=== PATIENT | male | born 1935 | race Caucasian/White ===

== ENCOUNTER 2021-06-21 19:00 | Inpatient (IN) | payer MEDICARE ==
[~2021-06-21] VITALS: Ht 175.3 cm; Wt 76.1 kg
[2021-06-21 19:24] LABS: BASO # 0.1 x10^3/uL (0.0-0.2); BASO % 0 % (0-3); EOS % 0 % (0-3); HEMATOCRIT 43.9 % (39.0-53.0); HEMOGLOBIN 14.3 g/dL (13.0-17.5); LYMPH # 0.3 x10^3/uL (1.0-4.8); LYMPH % 2 % (24-48); MEAN CORPUSCULAR HEMOGLOBIN 32 pg (25-35); MEAN CORPUSCULAR HGB CONC 33 g/dL (31-37); MEAN CORPUSCULAR VOLUME 99 fL (79-100); MONO # 0.8 x10^3/uL (0.0-1.1); MONO % 5 % (0-9); NEUT % 93 % (31-73); PLATELET COUNT 58 x10^3/uL (140-400); RED BLOOD COUNT 4.43 x10^6/uL (4.30-5.70); RED CELL DISTRIBUTION WIDTH 15.1 % (11.5-14.5); WHITE BLOOD COUNT 16.2 x10^3/uL (4.0-11.0)
--- NOTE | 2021-06-21 19:36 | PHYS DOC ---
Adult General Chief Complaint Chief Complaint: RAPID HEART RATE HPI HPI The patient is an 85-year-old male with a history of hypertension, hyperlipidemia, paroxysmal atrial fibrillation on apixaban and Cardizem, questionable history of heart failure on what son reports is a water pill daily (though echocardiogram last year at [facility], reviewed by me, was essentially normal), wxq-[id number]-cqxsevoyt diabetes. He evidently lives at home with family in the community. He has never been to this facility before. He presents via EMS with no family present for evaluation of progressively worsening generalized weakness and lethargy over the course of the last 2 days. Upon EMS arrival, patient was found to be saturating at about 80% on room air and saturations normalized with 4 L by nasal cannula. He was found to be s omnolent but appropriately responsive, moving all extremities to command and answering questions reasonably appropriately. Vital signs were also notable for tachycardia with heart rate in the 140s. Rhythm strip from EMS shows atrial fibrillation with rapid response and some lateral ST depressions likely reflective of demand. Blood glucose found to be over 400 en route. Upon arrival to the emergency department, patient is alert and appropriately interactive, though somewhat sleepy and lethargic. He denies pain anywhere. Vital signs are much the same as they were during transport. Patient does not provide much further useful history. Review of Systems Review of Systems Review of systems not obtainable secondary to somnolent, somewhat lethargic patient. Current Medications Current Medications Current Medications Medications (Trade) Dose Ordered Sig/Susy Start Time Stop Time Status Last Admin Dose Admin Aspirin (Aspirin Chewable) 324 mg 1X ONCE 06/21/21 20:30 06/21/21 20:31 DC 06/21/21 20:40 324 MG Diltiazem HCl (Cardizem Iv Push) 15 mg 1X ONCE 06/21/21 19:30 06/21/21 19:53 DC 06/21/21 19:58 15 MG Furosemide (Lasix) 40 mg 1X ONCE 06/21/21 20:30 06/21/21 20:31 DC 06/21/21 20:39 40 MG Heparin Sodium (Porcine) (Heparin Sodium) 1,650 unit PRN Q6HRS PRN 06/21/21 21:00 Heparin Sodium/ Dextrose 250 ml @ 7.8 mls/hr CONT PRN 06/21/21 21:00 Info (Anti-Coagulation Monitoring By Pharmacy) 1 each PRN DAILY PRN 06/21/21 21:15 Insulin Human Lispro (HumaLOG) 10 units 1X ONCE 06/21/21 20:30 06/21/21 20:31 DC 06/21/21 20:33 10 UNITS Piperacillin Sod/ Tazobactam Sod 4.5 gm/Dextrose 100 ml @ 200 mls/hr 1X ONCE 06/21/21 20:00 06/21/21 20:29 DC 06/21/21 20:23 200 MLS/HR Piperacillin Sod/ Tazobactam Sod 4.5 gm/Sodium Chloride 100 ml @ 200 mls/hr 1X ONCE 06/21/21 20:00 06/21/21 19:55 DC Sodium Chloride 500 ml @ 500 mls/hr 1X ONCE 06/21/21 22:00 06/21/21 22:59 Vancomycin HCl 1.5 gm/Sodium Chloride 500 ml @ 250 mls/hr 1X ONCE 06/21/21 21:00 06/21/21 22:59 06/21/21 20:32 250 MLS/HR Allergies Allergies Allergies Coded Allergies Type Severity Reaction Last Updated Verified No Known Drug Allergies 06/21/21 No Physical Exam Physical Exam Cachectic, disheveled and soiled 85-year-old male appearing nontoxic and in no acute distress, though somewhat acutely ill. Head is normocephalic and atra umatic. Temporal wasting. Neck is supple and nontender. Oropharynx is mildly tacky. Lungs with diminished breath sounds to all reed but no adventitious sounds. Mild tachypnea. There is a normal S1 and S2 without rubs or gallops and capillary refill is appropriate, less than 2 seconds globally. There is a tachycardic, irregular rhythm. Abdomen is soft, nontender and nondistended without pulsatile mass. Skin is warm and dry without cyanosis, clubbing or edema. Psychiatrically, the patient demonstrates appropriate mood and affect and is alert. Neurologically, patient is lethargic and somewhat sleepy but answers questions appropriately and follows commands appropriately with all 4 e xtremities. No lateralizing deficits are clearly seen. Evaluation of the extremities reveals BUEs and BLEs neurovascularly intact distally with strength out of 5, sensation intact light touch in all nerve distributions, radial, DP and PT pulses 2+ and equal bilaterally, capillary refill less than 2 seconds, hands and feet warm and well-perfused. 2+ pitting edema to bilateral lower extremities below the knees. No calf tenderness or swelling bilaterally. Joanie's test is negative bilaterally. No erythema or tenderness to the legs. Current Patient Data Vital Signs Vital Signs Date Time Temp Pulse Resp B/P (MAP) Pulse Ox O2 Delivery O2 Flow Rate FiO2 06/21/21 19:58 144 148/87 06/21/21 19:21 97.7 18 98 Nasal Cannula 4.0 97.7 Lab Values Laboratory Tests Test 06/21/21 19:11 06/21/21 19:20 06/21/21 19:44 06/21/21 20:28 White Blood Count 16.2 x10^3/uL (4.0-11.0) H Red Blood Count 4.43 x10^6/uL (4.30-5.70) Hemoglobin 14.3 g/dL (13.0-17.5) Hematocrit 43.9 % (39.0-53.0) Mean Corpuscular Volume 99 fL (79-100) Mean Corpuscular Hemoglobin 32 pg (25-35) Mean Corpuscular Hemoglobin Concent 33 g/dL (31-37) Red Cell Distribution Width 15.1 % (11.5-14.5) H Platelet Count 58 x10^3/uL (140-400) L Neutrophils (%) (Auto) 93 % (31-73) H Lymphocytes (%) (Auto) 2 % (24-48) L Monocytes (%) (Auto) 5 % (0-9) Eosinophils (%) (Auto) 0 % (0-3) Basophils (%) (Auto) 0 % (0-3) Neutrophils # (Auto) 15.0 x10^3/uL (1.8-7.7) H Lymphocytes # (Auto) 0.3 x10^3/uL (1.0-4.8) L Monocytes # (Auto) 0.8 x10^3/uL (0.0-1.1) Eosinophils # (Auto) 0.0 x10^3/uL (0.0-0.7) Basophils # (Auto) 0.1 x10^3/uL (0.0-0.2) Segmented Neutrophils % 93 % (35-66) H Band Neutrophils % 4 % (0-9) Lymphocytes % 2 % (24-48) L Monocytes % 1 % (0-10) Platelet Estimate Decreased (ADEQUATE) [place] Cells Present Prothrombin Time 33.4 SEC (11.7-14.0) H Prothrombin Time INR 3.4 (0.8-1.1) H Activated Partial Thromboplast Time 38 SEC (24-38) Sodium Level 143 mmol/L (136-145) Potassium Level 5.6 mmol/L (3.5-5.1) H Chloride Level 103 mmol/L (98-107) Carbon Dioxide Level 13 mmol/L (21-32) L Anion Gap 27 (6-14) H Blood Urea Nitrogen 106 mg/dL (8-26) H Creatinine 3.0 mg/dL (0.7-1.3) H Estimated GFR (Cockcroft-Gault) 20.1 BUN/Creatinine Ratio 35 (6-20) H Glucose Level 446 mg/dL (70-99) H Lactic Acid Level 10.2 mmol/L (0.4-2.0) *H Calcium Level 10.0 mg/dL (8.5-10.1) Total Bilirubin 3.2 mg/dL (0.2-1.0) H Aspartate Amino Transferase (AST) 2562 U/L (15-37) H Alanine Aminotransferase (ALT) 2035 U/L (16-63) H Alkaline Phosphatase 161 U/L (46-116) H Troponin I High Sensitivity 560 ng/L (4-75) H CS-Ouf-V-Type Natriuretic Peptide > 81563 pg/mL (0-449) H Total Protein 7.2 g/dL (6.4-8.2) Albumin 4.3 g/dL (3.4-5.0) Albumin/Globulin Ratio 1.5 (1.0-1.7) Procalcitonin 0.45 ng/mL (0.00-0.10) H Thyroid Stimulating Hormone (TSH) 2.367 uIU/mL (0.358-3.74) Acetone Level Neg (NEG) Urine Collection Type Unknown Urine Color (Auto) Yellow Urine Turbidity Clear Urine pH (Auto) 5.0 (<5.0-8.0) Urine Specific [place] 1.027 (1.000-1.030) Urine Protein (Auto) 30 mg/dL (Negative) Urine Glucose (Auto)(UA) >=1000 mg/dL (Negative) Urine Ketones (Auto) Negative mg/dL (Negative) Urine Blood (Auto) Negative (Negative) Urine Nitrite Negative (Negative) Urine Bilirubin (Auto) Negative (Negative) Urine Urobilinogen (Auto) Normal mg/dL (Normal) Urine Leukocyte Esterase (Auto) Negative (Negative) Urine RBC 0 /HPF (0-2) Urine WBC 5-10 /HPF (0-4) Urine Squamous Epithelial Cells Few /LPF Urine Bacteria 0 /HPF (0-FEW) Urine Hyaline Casts Moderate /HPF Urine Mucus Slight /LPF O2 Saturation 99 % (92-99) Arterial Blood pH 7.40 (7.35-7.45) Arterial Blood pCO2 at Patient Temp 18 mmHg (35-46) *L Arterial Blood pO2 at Patient Temp 182 mmHg (65-108) H Arterial Blood HCO3 11 mmol/L (21-28) L Arterial Blood Base Excess -11 mmol/L (-3-3) L FiO2 32 Influenza Type A Antigen Negative (NEGATIVE) Influenza Type B Antigen Negative (NEGATIVE) SARS-CoV-2 Antigen (Rapid) Negative (NEGATIVE) Laboratory Tests 06/21/21 19:11 Laboratory Tests 06/21/21 19:11 EKG EKG Atrial fibrillation with rapid ventricular response, rate 127, left bundle branch block, no acute ST elevation, ST depressions noted to lateral leads, EP interpretation. Radiology/Procedures Radiology/Procedures [] Course & Med Decision Making Course & Med Decision Making 85-year-old gentleman presenting for evaluation of lethargy and confusion at home over the past couple of days. Appears to be in atrial fibrillation with rapid ventricular response and fluid overloaded here in the emergency department. Have opted to cover with broad-spectrum antibiotics after cultures while initial work-up is completed although etiology may prove to be noninfectious. We will give IV Cardizem. We will give a small dose of Lasix. We will hold on fluids for now as patient looks volume overloaded. Anticipate admission. 2100: Large work-up with numerous abnormalities. Patient has evidence of m ultisystem organ failure with acute hypoxemic respiratory failure, NSTEMI (unclear if Type 1 or Type 2; have started heparin to cover for the former possibility), acute hepatic and acute renal injury, pronounced lactic acidemia. CT of the head unremarkable. CT of the abdomen and pelvis without clear anatomic correlate for the patient's symptoms or laboratory findings. Have opted to cover broadly with vancomycin and Zosyn after cultures for infectious etiologies and have given a 30mL/kg sepsis fluid bolus. Felton catheter has been placed and the patient drained 1.5L of clear yellow urine (patient hasn't been taking his Flomax). Patient is in improved condition on serial reassessments, looking significantly better and more responsive than he was on arrival. Dr. Montelongo came to bedside and evaluated the patient and graciously accepts him for ICU admission. I updated family at length on results of work-up and the patient's critical illness. They were provided an opportunity to ask questions and all of their questions were answered. They are still deciding on a CODE STATUS; for now the patient will be a full code. Critical care time today was 77 minutes. Dragon Disclaimer Dragon Disclaimer This electronic medical record was generated, in whole or in part, using a voice recognition dictation system. Departure Departure Impression: Primary Impression: Atrial fibrillation with rapid ventricular response Additional Impressions: Acute metabolic encephalopathy Shock NSTEMI (non-ST elevated myocardial infarction) Metabolic acidosis Lactic acidemia Transaminasemia Cholestasis Acute urinary retention Disposition: ADMITTED INPATIENT Condition: CRITICAL Problem Qualifiers MAYCOL MARION MD Jun 21, 2021 19:36
[2021-06-21 19:37] LABS: GFR 20.1; POTASSIUM 5.6 mmol/L (3.5-5.1)
[2021-06-21 19:44] LABS: BACTERIA,URINE 0 /HPF (0-FEW); RBC,URINE 0 /HPF (0-2)
[2021-06-21 19:45] LABS: HYALINE CASTS, URINE MODERATE /HPF
[2021-06-21 19:52] LABS: ALBUMIN 4.3 g/dL (3.4-5.0); ALBUMIN/GLOBULIN RATIO 1.5 (1.0-1.7); TOTAL BILIRUBIN 3.2 mg/dL (0.2-1.0); TOTAL PROTEIN 7.2 g/dL (6.4-8.2)
[2021-06-21 19:54] LABS: % BANDS 4 % (0-9); % LYMPHS 2 % (24-48); % MONOS 1 % (0-10); % SEGS 93 % (35-66); BURR CELLS PRESENT; PLT ESTIMATE DECREASED (ADEQUATE)
[2021-06-21] MEDS ORDERED: PIPERACILLIN/TAZOBACTAM 4.5 GM in IV DEXTROSE 5% 100ML 100 ML IV ONE (20:00)
[2021-06-21] MEDS ORDERED: PIPERACILLIN/TAZOBACTAM 4.5 GM in IV NORMAL SALINE 100ML 100 ML IV ONE (20:00)
--- NOTE | 2021-06-21 20:09 | RAD ---
CT HEAD/BRAIN WO Date: 06/21/2021 7:14 PM Clinical Indication: AMS Comparison: None. Technique: 5 mm axial tomographic images were obtained of the head without contrast. These were view ed on brain and bone windows. One or more of the following dose reduction techniques were utilized: A utomated exposure control (AEC), Adjustment of mA and/or kV according to patient size, Use of iterati ve reconstruction technique such as ASiR, CT scan done according to ALARA and image gently/image aleman ly Findings: Moderate generalized cerebral and cerebellar volume loss. Moderate nonspecific periventricular hypoat tenuation, most commonly seen with chronic small vessel ischemic disease. Calcified atherosclerosis o f the bilateral cavernous and paraclinoid internal carotid arteries and intracranial vertebral arteri es. No intra- or extra-axial mass or fluid collection. No acute hemorrhage. The ventricles are normal in size, shape, and morphology. The guzman-white matter junction is normal. The subarachnoid cisterns are patent. The visualized paranasal sinuses are normal. The visualized portions of the orbits and globes are no rmal. The mastoid air cells are clear. 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 Impression: No acute intracranial process. Moderate cerebral volume loss. Moderate chronic small vessel ischemic disease. Electronically signed by: Moshe Renee MD (06/21/2021 8:06 PM) [facility]
[2021-06-21 20:11] LABS: PROTHROMBIN TIME PATIENT 33.4 SEC (11.7-14.0)
[2021-06-21 20:19] LABS: BASE EXCESS ABG -11 mmol/L (-3-3); HCO3 ABG 11 mmol/L (21-28); PO2 ABG 182 mmHg (65-108); SAT O2 ABG 99 % (92-99)
[2021-06-21] MEDS ORDERED: FUROSEMIDE 40 MG/4 ML VIAL. IVP ONE (20:30)
[2021-06-21] MEDS ORDERED: IV NORMAL SALINE 500ML BAG 250 ML IV ONE (20:30)
[2021-06-21] MEDS ORDERED: ASPIRIN CHEWABLE 81 MG TABLET. PO ONE (20:30)
[2021-06-21] MEDS ORDERED: INSULIN LISPRO 300 UNITS/3 ML VIAL. SQ ONE (20:30)
--- NOTE | 2021-06-21 20:30 | RAD ---
XR CHEST 1V INDICATION: SOA, AMS. COMPARISON STUDY: None. FINDINGS: Lungs: Hyperexpanded lung volume. No pulmonary mass or consolidation. The tracheobronchial tree and h ilar structures are normal. Pleura: No pleural effusion or pneumothorax. Heart and Mediastinum: Cardiomegaly. Atherosclerosis of the thoracic aorta. IMPRESSION: No acute cardiopulmonary process. Electronically signed by: Moshe Renee MD (06/21/2021 8:28 PM) [facility]
[2021-06-21 20:36] LABS: FIO2 ABG 32; PCO2 ABG 18 mmHg (35-46)
[2021-06-21] MEDS ORDERED: HEPARIN 25,000UTS/250ML PREMIX 250 ML IV PRN (21:00)
[2021-06-21] MEDS ORDERED: VANCOMYCIN 1.5 GM in IV NORMAL SALINE 500ML BAG 500 ML IV ONE (21:00)
[2021-06-21] MEDS ORDERED: HEPARIN for IV BOLUS 10,000 UNIT/10 ML VIAL. IV PRN (21:00)
[2021-06-21] MEDS ORDERED: HEPARIN for IV BOLUS 10,000 UNIT/10 ML VIAL. IV ONE (21:00)
[2021-06-21 21:02] LABS: INFLUENZA A PATIENT NEGATIVE (NEGATIVE); INFLUENZA B PATIENT NEGATIVE (NEGATIVE)
[2021-06-21] MEDS ORDERED: DILT180C2 PO (21:06)
[2021-06-21] MEDS ORDERED: METF10007 PO (21:06)
[2021-06-21] MEDS ORDERED: DILT60TA3 PO (21:06)
[2021-06-21] MEDS ORDERED: ASPI-630 PO (21:06)
[2021-06-21] MEDS ORDERED: MAGN70TA2 PO (21:06)
[2021-06-21] MEDS ORDERED: TAMS0.4C97 PO (21:06)
[2021-06-21] MEDS ORDERED: SIMV80TA17 PO (21:06)
[2021-06-21] MEDS ORDERED: FURO-69 PO (21:06)
[2021-06-21] MEDS ORDERED: TIMO5DRO5 OD (21:06)
[2021-06-21] MEDS ORDERED: LATA2.5D2 OU (21:06)
[2021-06-21] MEDS ORDERED: HYDR-2145 PO (21:06)
[2021-06-21] MEDS ORDERED: APIX5TAB PO (21:06)
[2021-06-21] MEDS ORDERED: IV NORMAL SALINE 1000ML BAG 1,000 ML IV ONE (21:30)
--- NOTE | 2021-06-21 21:42 | RAD ---
Exam: CT of chest, abdomen and pelvis without contrast INDICATION: Multisystem organ failure, lactic acidemia TECHNIQUE: Sequential axial images through the chest, abdomen and pelvis obtained without IV contrast . Sagittal and coronal reformatted images were reconstructed from the axial data and reviewed. Exposure: One or more of the following in the visualized dose reduction techniques were utilized for this examination: 1. Automated exposure control 2. Adjustment of the MA and/or KV according to patient size 3. Use of iterative of reconstructive technique Comparisons: None FINDINGS: Visualized portions of the thyroid are unremarkable. No enlarged mediastinal lymph nodes are identifi ed. Heart is enlarged. No pericardial effusion. Thoracic aorta has a normal course and caliber. Pulmonary artery is not enlarged. Airways are patent. No consolidation or pneumothorax. Strandy opacities the dependent portion lungs l ikely representing atelectasis. No pleural effusion or thickening. Evaluation of solid abdominal organs limited secondary to noncontrast technique. Liver, spleen, pancreas, gallbladder and adrenals are unremarkable. No perinephric inflammation or hydronephrosis. No renal or ureteral calculi are identified. Bladder is decompressed. Felton balloon noted in the bladder. Prostate is not enlarged. Moderate amount of stool noted particularly at the distal sigmoid colon. Appendix is normal. Small radha wel is unremarkable. No free intra-abdominal air or fluid. No obstruction. Abdominal aorta has a normal course and caliber. No enlarged intra-abdominal lymph nodes are identified. IMPRESSION: 1. Cardiomegaly. 2. Large amount stool noted at the distal colon, correlate for constipation. Electronically signed by: Rodrick Webster MD (06/21/2021 9:39 PM) [facility]
[2021-06-21] MEDS ORDERED: IV NORMAL SALINE 500ML BAG 500 ML IV ONE (22:00)
[2021-06-21] MEDS ORDERED: ACETAMINOPHEN 325 MG TABLET. PO PRN (22:15)
[2021-06-21] MEDS ORDERED: dilTIAZem HCL 125 MG in IV DEXTROSE 5% 100ML 100 ML IV PRN (22:15)
[2021-06-21] MEDS ORDERED: ONDANSETRON PF 4 MG/2 ML VIAL. IVP PRN (22:15)
[2021-06-21] MEDS ORDERED: PIP/TAZO PER PHARMACY MC PRN (22:45)
--- NOTE | 2021-06-21 23:14 | HP ---
DATE OF SERVICE: 06/21/2021 ADMIT DATE: 06/21/2021 CHIEF COMPLAINT: Rapid heart rate. 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 He presented to the ER by ambulance with complaints of rapid heart rate. While in the ER, we have discovered multiple issues. He appears to possibly have multiorgan failure. He has azotemia with a BUN of 106 and a creatinine of 3.0. He is hyperglycemic with a glucose of 446. The potassium is high at 5.6. BNP levels are elevated to greater than 35,000. His AST and ALT are also high at 2035 and 2560. Alkaline phosphatase is little high at 161. His lactic is also high at 10.2. He has got leukocytosis of 16,000. I discussed the case with ER physician and the family. The patient is currently on Cardizem drip in the ER room 2 where he has been examined. PAST MEDICAL HISTORY: Hypertension, hyperlipidemia, chronic anticoagulation, possible CHF, AFib. ALLERGIES: None. FAMILY HISTORY: Diabetes. 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 MEDICATIONS: Reviewed, please refer to the MRAD. REVIEW OF SYSTEMS: GENERAL: He complains of weakness. SKIN: No bruising, hair changes or rashes. EYES: No blurred, double or loss of vision. NOSE AND THROAT: No history of nosebleeds, hoarseness or sore throat. HEART: He complains of palpitations. LUNGS: He complains of shortness of breath. GASTROINTESTINAL: Denies changes in appetite, nausea, vomiting, diarrhea or constipation. GENITOURINARY: No history of frequency, urgency, hesitancy or nocturia. NEUROLOGIC: Denies history of numbness, tingling, tremor or weakness. PSYCHIATRIC: He complains of depression. ENDOCRINE: No history of heat or cold intolerance, polyuria or polydipsia. EXTREMITIES: Denies muscle weakness, joint pain, pain on walking or stiffness. PHYSICAL EXAMINATION: VITALS: Within normal limits and are stable. GENERAL: No apparent distress. Alert and oriented. HEENT: Normal cephalic atraumatic, external auditory canals are patent. EYES: Extraocular muscles are intact, pupils are equally round and reactive to light and accommodation. MUSCULOSKELETAL: Well developed, well nourished, good range of motion. ENDOCRINE: No thyromegaly was palpated. LYMPHATICS: No cervical chain or axillary nodes were noted. HEMATOPOIETIC: No bruising. NECK: Supple, no JVD, no thyromegaly was noted. LUNGS: He has bibasilar crackles. HEART: He has irregular distant S1, S2 with AFib on the monitor and rapid ventricular response of 120, although we have that down now with the Cardizem drip. ABDOMEN: Soft, nontender. Positive bowel sounds no organomegaly, normal bowel sounds. EXTREMITIES: He has 2-3+ edema. The toes and fingers are somewhat cyanotic. NEUROLOGIC: Normal speech, normal tone. A and O x 3, moves all extremities, no obvious focal deficits. PSYCHIATRIC: Normal affect, normal mood. Stable. SKIN: No ulcerations or rashes, good skin turgor, no jaundice. VASCULAR: Good capillary refill, neurovascular bundle appears to be intact. LABORATORY DATA: White count 16. Lactic acid is 10.2. BNP greater than 35,000. Troponin 560. Procalcitonin 45. ABG shows a pH of 7.4, pCO2 of 18, pO2 of 182, bicarbonate 11 and that is with 99% sat on 32% FiO2. COVID testing is negative. Flu testing is negative. Urinalysis is negative. Acetone level is negative. INR is high at 3.4, but again he is on Xarelto. Chest x-ray shows no acute pulmonary process surprisingly. CT of the head shows no acute process. He has some atrophy and chronic small vessel disease. CT of the chest and abdomen shows cardiomegaly and a large amount of stool noted. ASSESSMENT AND PLAN: Atrial fibrillation with rapid ventricular response, renal failure, azotemia, hyperkalemia, transaminitis, elevated troponin, leukocytosis. The patient has been admitted. We have him on a Cardizem drip. We are giving him gentle IV normal saline as he seems to be intravascularly dry, although he does have edema. We have consulted Cardiology, GI and Pulmonary Medicine. Consult Nephrology also. Home meds when possible. Deep venous thrombosis prophylaxis. Full code. Cardiac monitoring, serial enzymes, serial EKGs. Long-term prognosis is guarded. Critical care time 32 minutes. HORACIO/SALUD DR: Clementina TID: [id number]
[2021-06-22] VITALS (28 sets, daily range): BP systolic 83–119; BP diastolic 51–73
[2021-06-22] MEDS: ANTI-COAG MONITOR BY PHARMACY. MC PRN ×3 (00:09→08:42)
[2021-06-22] MEDS: IV NORMAL SALINE 1000ML BAG 1,000 ML IV SCH ×3 (01:00→20:36)
[2021-06-22 05:22] LABS: ALBUMIN 3.3 g/dL (3.4-5.0); ALBUMIN/GLOBULIN RATIO 1.6 (1.0-1.7); CALCIUM 8.6 mg/dL (8.5-10.1); CREATININE 2.7 mg/dL (0.7-1.3); GFR 22.7; POTASSIUM 4.1 mmol/L (3.5-5.1); TOTAL BILIRUBIN 2.2 mg/dL (0.2-1.0); TOTAL PROTEIN 5.4 g/dL (6.4-8.2)
[2021-06-22] MEDS: PIPERACILLIN/TAZOBACTAM 2.25 GM in IV NORMAL SALINE 50ML 50 ML IV SCH ×4 (05:30→17:24)
[2021-06-22 06:44] LABS: BASO % 0 % (0-3); EOS % 0 % (0-3); HEMATOCRIT 37.5 % (39.0-53.0); HEMOGLOBIN 12.5 g/dL (13.0-17.5); LYMPH # 0.4 x10^3/uL (1.0-4.8); LYMPH % 3 % (24-48); MEAN CORPUSCULAR HEMOGLOBIN 32 pg (25-35); MEAN CORPUSCULAR HGB CONC 33 g/dL (31-37); MEAN CORPUSCULAR VOLUME 96 fL (79-100); MONO # 0.6 x10^3/uL (0.0-1.1); MONO % 4 % (0-9); NEUT # 11.9 x10^3/uL (1.8-7.7); NEUT % 93 % (31-73); PLATELET COUNT 46 x10^3/uL (140-400); RED BLOOD COUNT 3.89 x10^6/uL (4.30-5.70); RED CELL DISTRIBUTION WIDTH 14.5 % (11.5-14.5); WHITE BLOOD COUNT 12.8 x10^3/uL (4.0-11.0)
--- NOTE | 2021-06-22 08:06 | EKG ---
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
--- NOTE | 2021-06-22 08:40 | EKG ---
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
[2021-06-22] MEDS ORDERED: HEPARIN 25,000UTS/250ML PREMIX 250 ML IV PRN (08:45)
[2021-06-22] MEDS ORDERED: HEPARIN for IV BOLUS 10,000 UNIT/10 ML VIAL. IV PRN (08:45)
--- NOTE | 2021-06-22 09:45 | PDOC ---
PULMONARY PROGRESS NOTES DATE: 06/22/21 TIME: 09:43 Vitals Vital Signs Date Time Temp Pulse Resp B/P (MAP) Pulse Ox O2 Delivery O2 Flow Rate FiO2 06/22/21 09:00 103 18 101/59 100 Nasal Cannula 2.0 06/22/21 08:00 98.3 98.3 Labs Laboratory Tests Test 06/21/21 19:11 06/21/21 19:20 06/21/21 19:44 06/21/21 20:28 White Blood Count 16.2 x10^3/uL (4.0-11.0) Red Blood Count 4.43 x10^6/uL (4.30-5.70) Hemoglobin 14.3 g/dL (13.0-17.5) Hematocrit 43.9 % (39.0-53.0) Mean Corpuscular Volume 99 fL (79-100) Mean Corpuscular Hemoglobin 32 pg (25-35) Mean Corpuscular Hemoglobin Concent 33 g/dL (31-37) Red Cell Distribution Width 15.1 % (11.5-14.5) Platelet Count 58 x10^3/uL (140-400) Neutrophils (%) (Auto) 93 % (31-73) Lymphocytes (%) (Auto) 2 % (24-48) Monocytes (%) (Auto) 5 % (0-9) Eosinophils (%) (Auto) 0 % (0-3) Basophils (%) (Auto) 0 % (0-3) Neutrophils # (Auto) 15.0 x10^3/uL (1.8-7.7) Lymphocytes # (Auto) 0.3 x10^3/uL (1.0-4.8) Monocytes # (Auto) 0.8 x10^3/uL (0.0-1.1) Eosinophils # (Auto) 0.0 x10^3/uL (0.0-0.7) Basophils # (Auto) 0.1 x10^3/uL (0.0-0.2) Segmented Neutrophils % 93 % (35-66) Band Neutrophils % 4 % (0-9) Lymphocytes % 2 % (24-48) Monocytes % 1 % (0-10) Platelet Estimate Decreased (ADEQUATE) [place] Cells Present Prothrombin Time 33.4 SEC (11.7-14.0) Prothromb Time International Ratio 3.4 (0.8-1.1) Activated Partial Thromboplast Time 38 SEC (24-38) Sodium Level 143 mmol/L (136-145) Potassium Level 5.6 mmol/L (3.5-5.1) Chloride Level 103 mmol/L (98-107) Carbon Dioxide Level 13 mmol/L (21-32) Anion Gap 27 (6-14) Blood Urea Nitrogen 106 mg/dL (8-26) Creatinine 3.0 mg/dL (0.7-1.3) Estimated GFR (Cockcroft-Gault) 20.1 BUN/Creatinine Ratio 35 (6-20) Glucose Level 446 mg/dL (70-99) Lactic Acid Level 10.2 mmol/L (0.4-2.0) Calcium Level 10.0 mg/dL (8.5-10.1) Total Bilirubin 3.2 mg/dL (0.2-1.0) Aspartate Amino Transf (AST/SGOT) 2562 U/L (15-37) Alanine Aminotransferase (ALT/SGPT) 2035 U/L (16-63) Alkaline Phosphatase 161 U/L (46-116) Troponin I High Sensitivity 560 ng/L (4-75) OU-Lol-V-Type Natriuretic Peptide > 84501 pg/mL (0-449) Total Protein 7.2 g/dL (6.4-8.2) Albumin 4.3 g/dL (3.4-5.0) Albumin/Globulin Ratio 1.5 (1.0-1.7) Procalcitonin 0.45 ng/mL (0.00-0.10) Thyroid Stimulating Hormone (TSH) 2.367 uIU/mL (0.358-3.74) Acetone Level Neg (NEG) Urine Collection Type Unknown Urine Color (Auto) Yellow Urine Turbidity Clear Urine pH (Auto) 5.0 (<5.0-8.0) Urine Specific [place] 1.027 (1.000-1.030) Urine Protein (Auto) 30 mg/dL (Negative) Urine Glucose (Auto)(UA) >=1000 mg/dL (Negative) Urine Ketones (Auto) Negative mg/dL (Negative) Urine Blood (Auto) Negative (Negative) Urine Nitrite Negative (Negative) Urine Bilirubin (Auto) Negative (Negative) Urine Urobilinogen (Auto) Normal mg/dL (Normal) Urine Leukocyte Esterase (Auto) Negative (Negative) Urine RBC 0 /HPF (0-2) Urine WBC 5-10 /HPF (0-4) Urine Squamous Epithelial Cells Few /LPF Urine Bacteria 0 /HPF (0-FEW) Urine Hyaline Casts Moderate /HPF Urine Mucus Slight /LPF O2 Saturation 99 % (92-99) Arterial Blood pH 7.40 (7.35-7.45) Arterial Blood pCO2 at Patient Temp 18 mmHg (35-46) Arterial Blood pO2 at Patient Temp 182 mmHg (65-108) Arterial Blood HCO3 11 mmol/L (21-28) Arterial Blood Base Excess -11 mmol/L (-3-3) FiO2 32 Influenza Type A Antigen Negative (NEGATIVE) Influenza Type B Antigen Negative (NEGATIVE) SARS-CoV-2 Antigen (Rapid) Negative (NEGATIVE) Test 06/21/21 22:33 06/22/21 04:00 Lactic Acid Level 4.8 mmol/L (0.4-2.0) Troponin I High Sensitivity 644 ng/L (4-75) 1011 ng/L (4-75) White Blood Count 12.8 x10^3/uL (4.0-11.0) Red Blood Count 3.89 x10^6/uL (4.30-5.70) Hemoglobin 12.5 g/dL (13.0-17.5) Hematocrit 37.5 % (39.0-53.0) Mean Corpuscular Volume 96 fL (79-100) Mean Corpuscular Hemoglobin 32 pg (25-35) Mean Corpuscular Hemoglobin Concent 33 g/dL (31-37) Red Cell Distribution Width 14.5 % (11.5-14.5) Platelet Count 46 x10^3/uL (140-400) Neutrophils (%) (Auto) 93 % (31-73) Lymphocytes (%) (Auto) 3 % (24-48) Monocytes (%) (Auto) 4 % (0-9) Eosinophils (%) (Auto) 0 % (0-3) Basophils (%) (Auto) 0 % (0-3) Neutrophils # (Auto) 11.9 x10^3/uL (1.8-7.7) Lymphocytes # (Auto) 0.4 x10^3/uL (1.0-4.8) Monocytes # (Auto) 0.6 x10^3/uL (0.0-1.1) Eosinophils # (Auto) 0.0 x10^3/uL (0.0-0.7) Basophils # (Auto) 0.0 x10^3/uL (0.0-0.2) Heparin Anti-Xa Act, Unfractionated 0.21 IU/mL (0.30-0.70) Sodium Level 147 mmol/L (136-145) Potassium Level 4.1 mmol/L (3.5-5.1) Chloride Level 110 mmol/L (98-107) Carbon Dioxide Level 19 mmol/L (21-32) Anion Gap 18 (6-14) Blood Urea Nitrogen 105 mg/dL (8-26) Creatinine 2.7 mg/dL (0.7-1.3) Estimated GFR (Cockcroft-Gault) 22.7 BUN/Creatinine Ratio 39 (6-20) Glucose Level 308 mg/dL (70-99) Calcium Level 8.6 mg/dL (8.5-10.1) Total Bilirubin 2.2 mg/dL (0.2-1.0) Aspartate Amino Transf (AST/SGOT) 2166 U/L (15-37) Alanine Aminotransferase (ALT/SGPT) 1618 U/L (16-63) Alkaline Phosphatase 117 U/L (46-116) Total Protein 5.4 g/dL (6.4-8.2) Albumin 3.3 g/dL (3.4-5.0) Albumin/Globulin Ratio 1.6 (1.0-1.7) Laboratory Tests Test 06/21/21 19:11 06/21/21 19:20 06/21/21 19:44 06/21/21 20:28 White Blood Count 16.2 x10^3/uL (4.0-11.0) Red Blood Count 4.43 x10^6/uL (4.30-5.70) Hemoglobin 14.3 g/dL (13.0-17.5) Hematocrit 43.9 % (39.0-53.0) Mean Corpuscular Volume 99 fL (79-100) Mean Corpuscular Hemoglobin 32 pg (25-35) Mean Corpuscular Hemoglobin Concent 33 g/dL (31-37) Red Cell Distribution Width 15.1 % (11.5-14.5) Platelet Count 58 x10^3/uL (140-400) Neutrophils (%) (Auto) 93 % (31-73) Lymphocytes (%) (Auto) 2 % (24-48) Monocytes (%) (Auto) 5 % (0-9) Eosinophils (%) (Auto) 0 % (0-3) Basophils (%) (Auto) 0 % (0-3) Neutrophils # (Auto) 15.0 x10^3/uL (1.8-7.7) Lymphocytes # (Auto) 0.3 x10^3/uL (1.0-4.8) Monocytes # (Auto) 0.8 x10^3/uL (0.0-1.1) Eosinophils # (Auto) 0.0 x10^3/uL (0.0-0.7) Basophils # (Auto) 0.1 x10^3/uL (0.0-0.2) Segmented Neutrophils % 93 % (35-66) Band Neutrophils % 4 % (0-9) Lymphocytes % 2 % (24-48) Monocytes % 1 % (0-10) Platelet Estimate Decreased (ADEQUATE) [place] Cells Present Prothrombin Time 33.4 SEC (11.7-14.0) Prothromb Time International Ratio 3.4 (0.8-1.1) Activated Partial Thromboplast Time 38 SEC (24-38) Sodium Level 143 mmol/L (136-145) Potassium Level 5.6 mmol/L (3.5-5.1) Chloride Level 103 mmol/L (98-107) Carbon Dioxide Level 13 mmol/L (21-32) Anion Gap 27 (6-14) Blood Urea Nitrogen 106 mg/dL (8-26) Creatinine 3.0 mg/dL (0.7-1.3) Estimated GFR (Cockcroft-Gault) 20.1 BUN/Creatinine Ratio 35 (6-20) Glucose Level 446 mg/dL (70-99) Lactic Acid Level 10.2 mmol/L (0.4-2.0) Calcium Level 10.0 mg/dL (8.5-10.1) Total Bilirubin 3.2 mg/dL (0.2-1.0) Aspartate Amino Transf (AST/SGOT) 2562 U/L (15-37) Alanine Aminotransferase (ALT/SGPT) 2035 U/L (16-63) Alkaline Phosphatase 161 U/L (46-116) Troponin I High Sensitivity 560 ng/L (4-75) EU-Ana-W-Type Natriuretic Peptide > 53867 pg/mL (0-449) Total Protein 7.2 g/dL (6.4-8.2) Albumin 4.3 g/dL (3.4-5.0) Albumin/Globulin Ratio 1.5 (1.0-1.7) Procalcitonin 0.45 ng/mL (0.00-0.10) Thyroid Stimulating Hormone (TSH) 2.367 uIU/mL (0.358-3.74) Acetone Level Neg (NEG) Urine Collection Type Unknown Urine Color (Auto) Yellow Urine Turbidity Clear Urine pH (Auto) 5.0 (<5.0-8.0) Urine Specific [place] 1.027 (1.000-1.030) Urine Protein (Auto) 30 mg/dL (Negative) Urine Glucose (Auto)(UA) >=1000 mg/dL (Negative) Urine Ketones (Auto) Negative mg/dL (Negative) Urine Blood (Auto) Negative (Negative) Urine Nitrite Negative (Negative) Urine Bilirubin (Auto) Negative (Negative) Urine Urobilinogen (Auto) Normal mg/dL (Normal) Urine Leukocyte Esterase (Auto) Negative (Negative) Urine RBC 0 /HPF (0-2) Urine WBC 5-10 /HPF (0-4) Urine Squamous Epithelial Cells Few /LPF Urine Bacteria 0 /HPF (0-FEW) Urine Hyaline Casts Moderate /HPF Urine Mucus Slight /LPF O2 Saturation 99 % (92-99) Arterial Blood pH 7.40 (7.35-7.45) Arterial Blood pCO2 at Patient Temp 18 mmHg (35-46) Arterial Blood pO2 at Patient Temp 182 mmHg (65-108) Arterial Blood HCO3 11 mmol/L (21-28) Arterial Blood Base Excess -11 mmol/L (-3-3) FiO2 32 Influenza Type A Antigen Negative (NEGATIVE) Influenza Type B Antigen Negative (NEGATIVE) SARS-CoV-2 Antigen (Rapid) Negative (NEGATIVE) Test 06/21/21 22:33 06/22/21 04:00 Lactic Acid Level 4.8 mmol/L (0.4-2.0) Troponin I High Sensitivity 644 ng/L (4-75) 1011 ng/L (4-75) White Blood Count 12.8 x10^3/uL (4.0-11.0) Red Blood Count 3.89 x10^6/uL (4.30-5.70) Hemoglobin 12.5 g/dL (13.0-17.5) Hematocrit 37.5 % (39.0-53.0) Mean Corpuscular Volume 96 fL (79-100) Mean Corpuscular Hemoglobin 32 pg (25-35) Mean Corpuscular Hemoglobin Concent 33 g/dL (31-37) Red Cell Distribution Width 14.5 % (11.5-14.5) Platelet Count 46 x10^3/uL (140-400) Neutrophils (%) (Auto) 93 % (31-73) Lymphocytes (%) (Auto) 3 % (24-48) Monocytes (%) (Auto) 4 % (0-9) Eosinophils (%) (Auto) 0 % (0-3) Basophils (%) (Auto) 0 % (0-3) Neutrophils # (Auto) 11.9 x10^3/uL (1.8-7.7) Lymphocytes # (Auto) 0.4 x10^3/uL (1.0-4.8) Monocytes # (Auto) 0.6 x10^3/uL (0.0-1.1) Eosinophils # (Auto) 0.0 x10^3/uL (0.0-0.7) Basophils # (Auto) 0.0 x10^3/uL (0.0-0.2) Heparin Anti-Xa Act, Unfractionated 0.21 IU/mL (0.30-0.70) Sodium Level 147 mmol/L (136-145) Potassium Level 4.1 mmol/L (3.5-5.1) Chloride Level 110 mmol/L (98-107) Carbon Dioxide Level 19 mmol/L (21-32) Anion Gap 18 (6-14) Blood Urea Nitrogen 105 mg/dL (8-26) Creatinine 2.7 mg/dL (0.7-1.3) Estimated GFR (Cockcroft-Gault) 22.7 BUN/Creatinine Ratio 39 (6-20) Glucose Level 308 mg/dL (70-99) Calcium Level 8.6 mg/dL (8.5-10.1) Total Bilirubin 2.2 mg/dL (0.2-1.0) Aspartate Amino Transf (AST/SGOT) 2166 U/L (15-37) Alanine Aminotransferase (ALT/SGPT) 1618 U/L (16-63) Alkaline Phosphatase 117 U/L (46-116) Total Protein 5.4 g/dL (6.4-8.2) Albumin 3.3 g/dL (3.4-5.0) Albumin/Globulin Ratio 1.6 (1.0-1.7) Medications Active Scripts Medications Dose Route/Sig Max Daily Dose Days Date Category Magnesium Chloride 70 Mg Tablet.dr 70 Mg PO 06/21/21 Reported Hydrochlorothiazide Tablet (Hydrochlorothiazide) 25 Mg Tablet 25 Mg PO DAILY 06/21/21 Reported Lasix (Furosemide) 20 Mg Tablet 20 Mg PO BID 06/21/21 Reported Eliquis (Apixaban) 5 Mg Tablet 5 Mg PO 06/21/21 Reported Metformin Hcl 1,000 Mg Tablet 1,000 Mg PO BIDWMEALS 06/21/21 Reported Aspirin 81 Mg Tab.chew 1 Tab PO DAILY 06/21/21 Reported Cardizem Cd (Diltiazem Hcl) 180 Mg Cap.er.24h 1 Cap PO DAILY 06/21/21 Reported Cardizem Tablet (Diltiazem Hcl) 60 Mg Tablet 60 Mg PO QID 06/21/21 Reported Flomax (Tamsulosin Hcl) 0.4 Mg Cap.er.24h 1 Cap PO DAILY 06/21/21 Reported Simvastatin 80 Mg Tablet 1 Tab PO QHS 30 06/21/21 Reported Timolol Maleate 5 Ml Drops 1 Drop OD BID 06/21/21 Reported Xalatan (Latanoprost) 2.5 Ml Drops 1 Drop OU QHS 06/21/21 Reported Impression . Full consult dictated Respiratory failure multifactorial Sepsis Multiorgan failure Continue current support NOMRA HARRIS MD Jun 22, 2021 09:45
--- NOTE | 2021-06-22 10:19 | PDOC2 ---
[facility] LABORATORY TECHNICIAN 06/22/21 1019: CARDIAC CONSULT DATE OF CONSULT Date of Consult DATE: 06/22/21 TIME: 09:59 REASON FOR CONSULT Reason for Consult: NSTEMI REFERRING PHYSICIAN Referring Physician: Yudith SOURCE Source: Chart review HISTORY OF PRESENT ILLNESS HISTORY OF PRESENT ILLNESS This is an 85 yo male admitted for altered mental status. Lives in guest house by his son. He lives with his .Found in bed with urine and feces and confusion. No noted chest pain. Noted with SOA. EMS was called and RA O2 sat was 80% with BG at 400. Hx of NICM, PAFIB, HTN, HLP, He has not been taking his medications per son. Has not followed up with any recent supervisor [employer]. Upon admission he was noted with AFIB RVR with multiorgan failure. PAST MEDICAL HISTORY Cardiovascular: AFIB, CHF, HTN, Hyperlipidemia, Other (Takotsubo) Musculoskeletal: Osteoarthritis Endocrine: Diabetes PAST SURGICAL HISTORY Past Surgical History unknown FAMILY HISTORY Family History: Family History Unknown SOCIAL HISTORY ALCOHOL: none Lives: Alone CURRENT MEDICATIONS CURRENT MEDICATIONS Current Medications Medications (Trade) Dose Ordered Sig/Susy Route PRN Reason Start Time Stop Time Status Last Admin Dose Admin Vancomycin HCl 1.5 gm/Sodium Chloride 500 ml @ 250 mls/hr 1X ONCE IV 06/21/21 21:00 06/21/21 22:59 DC 06/21/21 20:32 Diltiazem HCl (Cardizem Iv Push) 15 mg 1X ONCE IVP 06/21/21 19:30 06/21/21 19:53 DC 06/21/21 19:58 Piperacillin Sod/ Tazobactam Sod 4.5 gm/Dextrose 100 ml @ 200 mls/hr 1X ONCE IV 06/21/21 20:00 06/21/21 20:29 DC 06/21/21 20:23 Insulin Human Lispro (HumaLOG) 10 units 1X ONCE SQ 06/21/21 20:30 06/21/21 20:31 DC 06/21/21 20:33 Furosemide (Lasix) 40 mg 1X ONCE IVP 06/21/21 20:30 06/21/21 20:31 DC 06/21/21 20:39 Sodium Chloride 250 ml @ 500 mls/hr 1X ONCE IV 06/21/21 20:30 06/21/21 20:59 DC 06/21/21 20:41 Aspirin (Aspirin Chewable) 324 mg 1X ONCE PO 06/21/21 20:30 06/21/21 20:31 DC 06/21/21 20:40 Sodium Chloride 1,000 ml @ 1,000 mls/hr 1X ONCE IV 06/21/21 21:30 06/21/21 22:29 DC 06/21/21 21:53 Heparin Sodium (Porcine) (Heparin Sodium) 3,900 unit 1X ONCE IV 06/21/21 21:00 06/21/21 21:02 DC 06/21/21 21:51 Heparin Sodium/ Dextrose 250 ml @ 7.8 mls/hr CONT PRN IV PER PROTOCOL 06/21/21 21:00 06/22/21 08:38 DC 06/21/21 21:52 Info (Anti-Coagulation Monitoring By Pharmacy) 1 each PRN DAILY PRN MC PER PROTOCOL 06/21/21 21:15 06/22/21 08:42 Sodium Chloride 500 ml @ 500 mls/hr 1X ONCE IV 06/21/21 22:00 06/21/21 22:59 DC 06/21/21 22:00 Sodium Chloride 1,000 ml @ 85 mls/hr [id number] IV 06/21/21 22:15 06/22/21 22:14 06/22/21 01:00 Diltiazem HCl 125 mg/Dextrose 125 ml @ 5 mls/hr CONT PRN PRN IV PER PROTOCOL 06/21/21 22:15 06/21/21 22:32 Piperacillin Sod/ Tazobactam Sod 2.25 gm/Sodium Chloride 50 ml @ 100 mls/hr Q6HRS IV 06/22/21 06:00 06/22/21 05:30 ALLERGIES ALLERGIES: Coded Allergies: No Known Drug Allergies (Unverified , 06/21/21) ROS Review of System unreliable PHYSICAL EXAM General: Alert, Cooperative, No acute distress HEENT: Atraumatic Lungs: Other (diminished bases) Heart: Other (AFIB, 2/6 systolic murmur to LLS border) Extremities: Other (Bilateral LE pitting edema 4+) Skin: No rashes Neuro: Normal speech, Sensation intact Psych/Mental Status: Other (confused) MUSCULOSKELETAL: Osteoarthritic changes both hands VITALS/I&O VITALS/I&O: Vital Signs Date Time Temp Pulse Resp B/P (MAP) Pulse Ox O2 Delivery O2 Flow Rate FiO2 06/22/21 09:00 103 18 101/59 100 Nasal Cannula 2.0 06/22/21 08:00 98.3 98.3 I & O 06/21/21 06/21/21 06/22/21 15:00 23:00 07:00 Intake Total 0 ml Output Total 2000 ml Balance -2000 ml LABS Lab: Laboratory Tests Test 06/21/21 19:11 06/21/21 19:20 06/21/21 19:44 06/21/21 20:28 White Blood Count 16.2 x10^3/uL (4.0-11.0) H Red Blood Count 4.43 x10^6/uL (4.30-5.70) Hemoglobin 14.3 g/dL (13.0-17.5) Hematocrit 43.9 % (39.0-53.0) Mean Corpuscular Volume 99 fL (79-100) Mean Corpuscular Hemoglobin 32 pg (25-35) Mean Corpuscular Hemoglobin Concent 33 g/dL (31-37) Red Cell Distribution Width 15.1 % (11.5-14.5) H Platelet Count 58 x10^3/uL (140-400) L Neutrophils (%) (Auto) 93 % (31-73) H Lymphocytes (%) (Auto) 2 % (24-48) L Monocytes (%) (Auto) 5 % (0-9) Eosinophils (%) (Auto) 0 % (0-3) Basophils (%) (Auto) 0 % (0-3) Neutrophils # (Auto) 15.0 x10^3/uL (1.8-7.7) H Lymphocytes # (Auto) 0.3 x10^3/uL (1.0-4.8) L Monocytes # (Auto) 0.8 x10^3/uL (0.0-1.1) Eosinophils # (Auto) 0.0 x10^3/uL (0.0-0.7) Basophils # (Auto) 0.1 x10^3/uL (0.0-0.2) Segmented Neutrophils % 93 % (35-66) H Band Neutrophils % 4 % (0-9) Lymphocytes % 2 % (24-48) L Monocytes % 1 % (0-10) Platelet Estimate Decreased (ADEQUATE) [place] Cells Present Prothrombin Time 33.4 SEC (11.7-14.0) H Prothrombin Time INR 3.4 (0.8-1.1) H Activated Partial Thromboplast Time 38 SEC (24-38) Sodium Level 143 mmol/L (136-145) Potassium Level 5.6 mmol/L (3.5-5.1) H Chloride Level 103 mmol/L (98-107) Carbon Dioxide Level 13 mmol/L (21-32) L Anion Gap 27 (6-14) H Blood Urea Nitrogen 106 mg/dL (8-26) H Creatinine 3.0 mg/dL (0.7-1.3) H Estimated GFR (Cockcroft-Gault) 20.1 BUN/Creatinine Ratio 35 (6-20) H Glucose Level 446 mg/dL (70-99) H Lactic Acid Level 10.2 mmol/L (0.4-2.0) *H Calcium Level 10.0 mg/dL (8.5-10.1) Total Bilirubin 3.2 mg/dL (0.2-1.0) H Aspartate Amino Transferase (AST) 2562 U/L (15-37) H Alanine Aminotransferase (ALT) 2035 U/L (16-63) H Alkaline Phosphatase 161 U/L (46-116) H Troponin I High Sensitivity 560 ng/L (4-75) H HO-Qxw-Q-Type Natriuretic Peptide > 17619 pg/mL (0-449) H Total Protein 7.2 g/dL (6.4-8.2) Albumin 4.3 g/dL (3.4-5.0) Albumin/Globulin Ratio 1.5 (1.0-1.7) Procalcitonin 0.45 ng/mL (0.00-0.10) H Thyroid Stimulating Hormone (TSH) 2.367 uIU/mL (0.358-3.74) Acetone Level Neg (NEG) Urine Collection Type Unknown Urine Color (Auto) Yellow Urine Turbidity Clear Urine pH (Auto) 5.0 (<5.0-8.0) Urine Specific [place] 1.027 (1.000-1.030) Urine Protein (Auto) 30 mg/dL (Negative) Urine Glucose (Auto)(UA) >=1000 mg/dL (Negative) Urine Ketones (Auto) Negative mg/dL (Negative) Urine Blood (Auto) Negative (Negative) Urine Nitrite Negative (Negative) Urine Bilirubin (Auto) Negative (Negative) Urine Urobilinogen (Auto) Normal mg/dL (Normal) Urine Leukocyte Esterase (Auto) Negative (Negative) Urine RBC 0 /HPF (0-2) Urine WBC 5-10 /HPF (0-4) Urine Squamous Epithelial Cells Few /LPF Urine Bacteria 0 /HPF (0-FEW) Urine Hyaline Casts Moderate /HPF Urine Mucus Slight /LPF O2 Saturation 99 % (92-99) Arterial Blood pH 7.40 (7.35-7.45) Arterial Blood pCO2 at Patient Temp 18 mmHg (35-46) *L Arterial Blood pO2 at Patient Temp 182 mmHg (65-108) H Arterial Blood HCO3 11 mmol/L (21-28) L Arterial Blood Base Excess -11 mmol/L (-3-3) L FiO2 32 Influenza Type A Antigen Negative (NEGATIVE) Influenza Type B Antigen Negative (NEGATIVE) SARS-CoV-2 Antigen (Rapid) Negative (NEGATIVE) Test 06/21/21 22:33 06/22/21 04:00 Lactic Acid Level 4.8 mmol/L (0.4-2.0) *H Troponin I High Sensitivity 644 ng/L (4-75) H 1011 ng/L (4-75) H White Blood Count 12.8 x10^3/uL (4.0-11.0) H Red Blood Count 3.89 x10^6/uL (4.30-5.70) L Hemoglobin 12.5 g/dL (13.0-17.5) L Hematocrit 37.5 % (39.0-53.0) L Mean Corpuscular Volume 96 fL (79-100) Mean Corpuscular Hemoglobin 32 pg (25-35) Mean Corpuscular Hemoglobin Concent 33 g/dL (31-37) Red Cell Distribution Width 14.5 % (11.5-14.5) Platelet Count 46 x10^3/uL (140-400) L Neutrophils (%) (Auto) 93 % (31-73) H Lymphocytes (%) (Auto) 3 % (24-48) L Monocytes (%) (Auto) 4 % (0-9) Eosinophils (%) (Auto) 0 % (0-3) Basophils (%) (Auto) 0 % (0-3) Neutrophils # (Auto) 11.9 x10^3/uL (1.8-7.7) H Lymphocytes # (Auto) 0.4 x10^3/uL (1.0-4.8) L Monocytes # (Auto) 0.6 x10^3/uL (0.0-1.1) Eosinophils # (Auto) 0.0 x10^3/uL (0.0-0.7) Basophils # (Auto) 0.0 x10^3/uL (0.0-0.2) Heparin Anti-Xa Act, Unfractionated 0.21 IU/mL (0.30-0.70) L Sodium Level 147 mmol/L (136-145) H Potassium Level 4.1 mmol/L (3.5-5.1) # Chloride Level 110 mmol/L (98-107) H Carbon Dioxide Level 19 mmol/L (21-32) L Anion Gap 18 (6-14) H Blood Urea Nitrogen 105 mg/dL (8-26) H Creatinine 2.7 mg/dL (0.7-1.3) H Estimated GFR (Cockcroft-Gault) 22.7 BUN/Creatinine Ratio 39 (6-20) H Glucose Level 308 mg/dL (70-99) H Calcium Level 8.6 mg/dL (8.5-10.1) Total Bilirubin 2.2 mg/dL (0.2-1.0) H Aspartate Amino Transferase (AST) 2166 U/L (15-37) H Alanine Aminotransferase (ALT) 1618 U/L (16-63) H Alkaline Phosphatase 117 U/L (46-116) H Total Protein 5.4 g/dL (6.4-8.2) L Albumin 3.3 g/dL (3.4-5.0) L Albumin/Globulin Ratio 1.6 (1.0-1.7) Laboratory Tests 06/21/21 19:11 06/22/21 04:00 Laboratory Tests 06/21/21 19:11 06/22/21 04:00 ASSESSMENT/PLAN ASSESSMENT/PLAN 1. NSTEMI: suspect demand mediated with multiorgan failure and AFIB RVR 2. AFIB RVR: paroxysmal by hx 3. LBBB: no prior EKG for comparison 4. Severe SUNNY 5. Coagulopathy: INR at 3.4 6. Thrombocytopenia 7. Severe transaminitis 8. Fall a week ago: unclear details 9. Hx of NICM: Takotsubo 10. Acute hypoxic respiratory failure 11. Sepsis: per PCP 12. Leg swelling 13. Metabolic encephalopathy Recommendations 1. Recheck INR, CK, venous doppler and TTE. 2. Multiple consultants awaiting input 3. Titrate O2 4. Stop heparin with low PLT. Hold ASA. 5. DC cardizem and start lopressor IV 6. Obtain cardiac records at [facility] 7. Caution with QT prolonging agents: QTc 515 MARQUEZ LIM MD 06/23/21 0800: CARDIAC CONSULT ASSESSMENT/PLAN ASSESSMENT/PLAN Late entry for 06/22/2021 Patient seen and examined. Agree with above nurse practitioner note. ZE [facility]IM[facility] [employer] LABORATORY TECHNICIAN Jun 22, 2021 10:19 MARQUEZ LIM MD Jun 23, 2021 08:00
[2021-06-22 10:32] LABS: PROTHROMBIN TIME PATIENT 31.4 SEC (11.7-14.0)
--- NOTE | 2021-06-22 10:56 | PDOC2 ---
GI CONSULT Date of Service: DATE: 06/22/21 TIME: 10:39 Reason For Consult: transaminitis, cholestasis HPI: HPI: 85 y/o male evaluated in ER for increasing weakness and lethargy at home. History from chart/staff. Per nurse, lives at home in son's guest house, h/o non-compliance w/ medications. In ER, covered in urine and feces, hypoxic, A Fib RVR, also multiple lab abnormalities and we're asked to see for elevated LFTs. CT reports unremarkable liver and constipation. No GI concerns per nurse. No meaningful history from pt. Summary list shows ASA and Eliquis. PMH: PMH: HTN, HLD, A Fib, NICM, DM cataract removal FH: Family History: No pertinent hx ROS: difficult to obtain Vitals: Vitals: Vital Signs Date Time Temp Pulse Resp B/P (MAP) Pulse Ox O2 Delivery O2 Flow Rate FiO2 06/22/21 09:00 103 18 101/59 100 Nasal Cannula 2.0 06/22/21 08:00 98.3 98.3 Labs: Labs: Laboratory Tests Test 06/21/21 19:11 06/21/21 19:20 06/21/21 19:44 06/21/21 20:28 White Blood Count 16.2 x10^3/uL (4.0-11.0) Red Blood Count 4.43 x10^6/uL (4.30-5.70) Hemoglobin 14.3 g/dL (13.0-17.5) Hematocrit 43.9 % (39.0-53.0) Mean Corpuscular Volume 99 fL (79-100) Mean Corpuscular Hemoglobin 32 pg (25-35) Mean Corpuscular Hemoglobin Concent 33 g/dL (31-37) Red Cell Distribution Width 15.1 % (11.5-14.5) Platelet Count 58 x10^3/uL (140-400) Neutrophils (%) (Auto) 93 % (31-73) Lymphocytes (%) (Auto) 2 % (24-48) Monocytes (%) (Auto) 5 % (0-9) Eosinophils (%) (Auto) 0 % (0-3) Basophils (%) (Auto) 0 % (0-3) Neutrophils # (Auto) 15.0 x10^3/uL (1.8-7.7) Lymphocytes # (Auto) 0.3 x10^3/uL (1.0-4.8) Monocytes # (Auto) 0.8 x10^3/uL (0.0-1.1) Eosinophils # (Auto) 0.0 x10^3/uL (0.0-0.7) Basophils # (Auto) 0.1 x10^3/uL (0.0-0.2) Segmented Neutrophils % 93 % (35-66) Band Neutrophils % 4 % (0-9) Lymphocytes % 2 % (24-48) Monocytes % 1 % (0-10) Platelet Estimate Decreased (ADEQUATE) [place] Cells Present Prothrombin Time 33.4 SEC (11.7-14.0) Prothromb Time International Ratio 3.4 (0.8-1.1) Activated Partial Thromboplast Time 38 SEC (24-38) Sodium Level 143 mmol/L (136-145) Potassium Level 5.6 mmol/L (3.5-5.1) Chloride Level 103 mmol/L (98-107) Carbon Dioxide Level 13 mmol/L (21-32) Anion Gap 27 (6-14) Blood Urea Nitrogen 106 mg/dL (8-26) Creatinine 3.0 mg/dL (0.7-1.3) Estimated GFR (Cockcroft-Gault) 20.1 BUN/Creatinine Ratio 35 (6-20) Glucose Level 446 mg/dL (70-99) Lactic Acid Level 10.2 mmol/L (0.4-2.0) Calcium Level 10.0 mg/dL (8.5-10.1) Total Bilirubin 3.2 mg/dL (0.2-1.0) Aspartate Amino Transf (AST/SGOT) 2562 U/L (15-37) Alanine Aminotransferase (ALT/SGPT) 2035 U/L (16-63) Alkaline Phosphatase 161 U/L (46-116) Troponin I High Sensitivity 560 ng/L (4-75) NQ-Rth-F-Type Natriuretic Peptide > 15685 pg/mL (0-449) Total Protein 7.2 g/dL (6.4-8.2) Albumin 4.3 g/dL (3.4-5.0) Albumin/Globulin Ratio 1.5 (1.0-1.7) Procalcitonin 0.45 ng/mL (0.00-0.10) Thyroid Stimulating Hormone (TSH) 2.367 uIU/mL (0.358-3.74) Acetone Level Neg (NEG) Urine Collection Type Unknown Urine Color (Auto) Yellow Urine Turbidity Clear Urine pH (Auto) 5.0 (<5.0-8.0) Urine Specific [place] 1.027 (1.000-1.030) Urine Protein (Auto) 30 mg/dL (Negative) Urine Glucose (Auto)(UA) >=1000 mg/dL (Negative) Urine Ketones (Auto) Negative mg/dL (Negative) Urine Blood (Auto) Negative (Negative) Urine Nitrite Negative (Negative) Urine Bilirubin (Auto) Negative (Negative) Urine Urobilinogen (Auto) Normal mg/dL (Normal) Urine Leukocyte Esterase (Auto) Negative (Negative) Urine RBC 0 /HPF (0-2) Urine WBC 5-10 /HPF (0-4) Urine Squamous Epithelial Cells Few /LPF Urine Bacteria 0 /HPF (0-FEW) Urine Hyaline Casts Moderate /HPF Urine Mucus Slight /LPF O2 Saturation 99 % (92-99) Arterial Blood pH 7.40 (7.35-7.45) Arterial Blood pCO2 at Patient Temp 18 mmHg (35-46) Arterial Blood pO2 at Patient Temp 182 mmHg (65-108) Arterial Blood HCO3 11 mmol/L (21-28) Arterial Blood Base Excess -11 mmol/L (-3-3) FiO2 32 Influenza Type A Antigen Negative (NEGATIVE) Influenza Type B Antigen Negative (NEGATIVE) SARS-CoV-2 Antigen (Rapid) Negative (NEGATIVE) Test 06/21/21 22:33 06/22/21 04:00 Lactic Acid Level 4.8 mmol/L (0.4-2.0) Troponin I High Sensitivity 644 ng/L (4-75) 1011 ng/L (4-75) White Blood Count 12.8 x10^3/uL (4.0-11.0) Red Blood Count 3.89 x10^6/uL (4.30-5.70) Hemoglobin 12.5 g/dL (13.0-17.5) Hematocrit 37.5 % (39.0-53.0) Mean Corpuscular Volume 96 fL (79-100) Mean Corpuscular Hemoglobin 32 pg (25-35) Mean Corpuscular Hemoglobin Concent 33 g/dL (31-37) Red Cell Distribution Width 14.5 % (11.5-14.5) Platelet Count 46 x10^3/uL (140-400) Neutrophils (%) (Auto) 93 % (31-73) Lymphocytes (%) (Auto) 3 % (24-48) Monocytes (%) (Auto) 4 % (0-9) Eosinophils (%) (Auto) 0 % (0-3) Basophils (%) (Auto) 0 % (0-3) Neutrophils # (Auto) 11.9 x10^3/uL (1.8-7.7) Lymphocytes # (Auto) 0.4 x10^3/uL (1.0-4.8) Monocytes # (Auto) 0.6 x10^3/uL (0.0-1.1) Eosinophils # (Auto) 0.0 x10^3/uL (0.0-0.7) Basophils # (Auto) 0.0 x10^3/uL (0.0-0.2) Heparin Anti-Xa Act, Unfractionated 0.21 IU/mL (0.30-0.70) Sodium Level 147 mmol/L (136-145) Potassium Level 4.1 mmol/L (3.5-5.1) Chloride Level 110 mmol/L (98-107) Carbon Dioxide Level 19 mmol/L (21-32) Anion Gap 18 (6-14) Blood Urea Nitrogen 105 mg/dL (8-26) Creatinine 2.7 mg/dL (0.7-1.3) Estimated GFR (Cockcroft-Gault) 22.7 BUN/Creatinine Ratio 39 (6-20) Glucose Level 308 mg/dL (70-99) Calcium Level 8.6 mg/dL (8.5-10.1) Total Bilirubin 2.2 mg/dL (0.2-1.0) Aspartate Amino Transf (AST/SGOT) 2166 U/L (15-37) Alanine Aminotransferase (ALT/SGPT) 1618 U/L (16-63) Alkaline Phosphatase 117 U/L (46-116) Total Protein 5.4 g/dL (6.4-8.2) Albumin 3.3 g/dL (3.4-5.0) Albumin/Globulin Ratio 1.6 (1.0-1.7) Allergies: Coded Allergies: No Known Drug Allergies (Unverified , 06/21/21) Medications: Current Medications Medications (Trade) Dose Ordered Sig/Susy Route PRN Reason Start Time Stop Time Status Last Admin Dose Admin Vancomycin HCl 1.5 gm/Sodium Chloride 500 ml @ 250 mls/hr 1X ONCE IV 06/21/21 21:00 06/21/21 22:59 DC 06/21/21 20:32 Diltiazem HCl (Cardizem Iv Push) 15 mg 1X ONCE IVP 06/21/21 19:30 06/21/21 19:53 DC 06/21/21 19:58 Piperacillin Sod/ Tazobactam Sod 4.5 gm/Dextrose 100 ml @ 200 mls/hr 1X ONCE IV 06/21/21 20:00 06/21/21 20:29 DC 06/21/21 20:23 Insulin Human Lispro (HumaLOG) 10 units 1X ONCE SQ 06/21/21 20:30 06/21/21 20:31 DC 06/21/21 20:33 Furosemide (Lasix) 40 mg 1X ONCE IVP 06/21/21 20:30 06/21/21 20:31 DC 06/21/21 20:39 Sodium Chloride 250 ml @ 500 mls/hr 1X ONCE IV 06/21/21 20:30 06/21/21 20:59 DC 06/21/21 20:41 Aspirin (Aspirin Chewable) 324 mg 1X ONCE PO 06/21/21 20:30 06/21/21 20:31 DC 06/21/21 20:40 Sodium Chloride 1,000 ml @ 1,000 mls/hr 1X ONCE IV 06/21/21 21:30 06/21/21 22:29 DC 06/21/21 21:53 Heparin Sodium (Porcine) (Heparin Sodium) 3,900 unit 1X ONCE IV 06/21/21 21:00 06/21/21 21:02 DC 06/21/21 21:51 Heparin Sodium/ Dextrose 250 ml @ 7.8 mls/hr CONT PRN IV PER PROTOCOL 06/21/21 21:00 06/22/21 08:38 DC 06/21/21 21:52 Info (Anti-Coagulation Monitoring By Pharmacy) 1 each PRN DAILY PRN MC PER PROTOCOL 06/21/21 21:15 06/22/21 08:42 Sodium Chloride 500 ml @ 500 mls/hr 1X ONCE IV 06/21/21 22:00 06/21/21 22:59 DC 06/21/21 22:00 Sodium Chloride 1,000 ml @ 85 mls/hr [id number] IV 06/21/21 22:15 06/22/21 22:14 06/22/21 01:00 Diltiazem HCl 125 mg/Dextrose 125 ml @ 5 mls/hr CONT PRN PRN IV PER PROTOCOL 06/21/21 22:15 06/22/21 10:10 DC 06/21/21 22:32 Piperacillin Sod/ Tazobactam Sod 2.25 gm/Sodium Chloride 50 ml @ 100 mls/hr Q6HRS IV 06/22/21 06:00 06/22/21 05:30 Imaging: Imaging: CXR IMPRESSION: No acute cardiopulmonary process. Head CT Impression: No acute intracranial process. Moderate cerebral volume loss. Moderate chronic small vessel ischemic disease. C/A/P CT FINDINGS: Visualized portions of the thyroid are unremarkable. No enlarged mediastinal lymph nodes are identified. Heart is enlarged. No pericardial effusion. Thoracic aorta has a normal course and caliber. Pulmonary artery is not enlarged. Airways are patent. No consolidation or pneumothorax. Strandy opacities the dependent portion lungs likely representing atelectasis. No pleural effusion or thickening. Evaluation of solid abdominal organs limited secondary to noncontrast technique. Liver, spleen, pancreas, gallbladder and adrenals are unremarkable. No perinephric inflammation or hydronephrosis. No renal or ureteral calculi are identified. Bladder is decompressed. [place] balloon noted in the bladder. Prostate is not enlarged. Moderate amount of stool noted particularly at the distal sigmoid colon. Appendix is normal. Small bowel is unremarkable. No free intra-abdominal air or fluid. No obstruction. Abdominal aorta has a normal course and caliber. No enlarged intra-abdominal lymph nodes are identified. IMPRESSION: 1. Cardiomegaly. 2. Large amount stool noted at the distal colon, correlate for constipation. PE: GEN: chronically ill in appearance, NC HEENT: Atraumatic, PERRL LUNGS: diminished, NC 2L HEART: irregular ABD: quiet BS, soft, RUQ/epigastric discomfort? EXTREMITY: BLE pitting edema SKIN: No rashes NEURO/PSYCH: confused, speech garbled, wearing mittens A/P: A/P: Weakness, ?non-compliance NSTEMI, A Fib, resp failure, SUNNY, encephalopathy, possible sepsis Thrombocytopenia, coagulopathy, elevated LFTs (AST and ALT in thousands - better) -- Continue per others. Monitor LFTs - possibly related to current illness, check RUQ US as able, treat constipation as able. CK pending along w/ INR recheck and blood culture. EMMA BOLTON Jun 22, 2021 10:56
[2021-06-22] MEDS: METOPROLOL IV PUSH 5 MG/5 ML VIAL. IVP SCH ×2 (11:16→17:23)
--- NOTE | 2021-06-22 11:32 | PDOC2 ---
CONSULT Date of Consult Date of Consult DATE: 06/22/21 TIME: 11:25 Reason for Consult Reason for Consult: SUNNY Source Source: Chart review History of Present Illness Reason for Visit: Patient is 85-year-old CM with a history of hypertension, hyperlipidemia, paroxysmal atrial fibrillation on apixaban and Cardizem, questionable history of heart failure on what son reports is a water pill daily (though echocardiogram last year at [facility], reviewed by me, was essentially normal), [id number] pendent diabetes. He evidently lives at home with family in the community. He has never been to this facility before. He presents via EMS with no family present for evaluation of progressively worsening generalized weakness and lethargy over the course of the last 2 days. Upon EMS arrival, patient was found to be saturating at about 80% on room air and saturations normalized with 4 L by nasal cannula. He was found to be somnolent but appropriately responsive, moving all extremities to command and answering questions reasonably appropriately. Vital signs were also notable for tachycardia with heart rate in the 140s. Rhythm strip from EMS shows atrial fibrillation with rapid response and some lateral ST depressions likely reflective of demand. Blood glucose found to be over 400 en route. Upon arrival to the emergency department, patient was somewhat sleepy and lethargic. Patient does not provide much further useful history.History Obtained from Chart review Past Medical History Cardiovascular: AFIB, CHF, HTN, Hyperlipidemia, Other (Takotsubo) Musculoskeletal: Osteoarthritis Endocrine: Diabetes Family History Family History: Family History Unknown Social History Lives: Alone Current Problem List Problem List Problems Medical Problems: (1) Acute metabolic encephalopathy Status: Acute (2) Acute urinary retention Status: Acute (3) Atrial fibrillation with rapid ventricular response Status: Acute (4) Cholestasis Status: Acute (5) Lactic acidemia Status: Acute (6) Metabolic acidosis Status: Acute (7) NSTEMI (non-ST elevated myocardial infarction) Status: Acute (8) Shock Status: Acute (9) Transaminasemia Status: Acute (10) Volume overload Status: Acute Current Medications Current Medications Current Medications Vancomycin HCl 1.5 gm/Sodium Chloride 500 ml @ 250 mls/hr 1X ONCE IV Last administered on 06/21/21at 20:32; Start 06/21/21 at 21:00; Stop 06/21/21 at 22:59; Status DC Piperacillin Sod/ Tazobactam Sod 4.5 gm/Sodium Chloride 100 ml @ 200 mls/hr 1X ONCE IV ; Start 06/21/21 at 20:00; Stop 06/21/21 at 19:55; Status DC Diltiazem HCl (Cardizem Iv Push) 15 mg 1X ONCE IVP Last administered on 06/21/21at 19:58; Start 06/21/21 at 19:30; Stop 06/21/21 at 19:53; Status DC Piperacillin Sod/ Tazobactam Sod 4.5 gm/Dextrose 100 ml @ 200 mls/hr 1X ONCE IV Last administered on 06/21/21at 20:23; Start 06/21/21 at 20:00; Stop 06/21/21 at 20:29; Status DC Insulin Human Lispro (HumaLOG) 10 units 1X ONCE SQ Last administered on 06/21/21at 20:33; Start 06/21/21 at 20:30; Stop 06/21/21 at 20:31; Status DC Furosemide (Lasix) 40 mg 1X ONCE IVP Last administered on 06/21/21at 20:39; Start 06/21/21 at 20:30; Stop 06/21/21 at 20:31; Status DC Sodium Chloride 250 ml @ 500 mls/hr 1X ONCE IV Last administered on 06/21/21at 20:41; Start 06/21/21 at 20:30; Stop 06/21/21 at 20:59; Status DC Aspirin (Aspirin Chewable) 324 mg 1X ONCE PO Last administered on 06/21/21at 20:40; Start 06/21/21 at 20:30; Stop 06/21/21 at 20:31; Status DC Sodium Chloride 1,000 ml @ 1,000 mls/hr 1X ONCE IV Last administered on 06/21/21at 21:53; Start 06/21/21 at 21:30; Stop 06/21/21 at 22:29; Status DC Heparin Sodium (Porcine) (Heparin Sodium) 3,900 unit 1X ONCE IV Last administered on 06/21/21 21:51; Start 06/21/21 at 21:00; Stop 06/21/21 at 21:02; Status DC Heparin Sodium/ Dextrose 250 ml @ 7.8 mls/hr CONT PRN IV PER PROTOCOL Last administered on 06/21/21at 21:52; Start 06/21/21 at 21:00; Stop 06/22/21 at 08:38; Status DC Heparin Sodium (Porcine) (Heparin Sodium) 1,650 unit PRN Q6HRS PRN IV FOR UFH LEVEL LESS THAN 0.2; Start 06/21/21 at 21:00; Stop 06/22/21 at 08:39; Status DC Info (Anti-Coagulation Monitoring By Pharmacy) 1 each PRN DAILY PRN MC PER PROTOCOL Last administered on 06/22/21at 08:42; Start 06/21/21 at 21:15 Sodium Chloride 500 ml @ 500 mls/hr 1X ONCE IV Last administered on 06/21/21at 22:00; Start 06/21/21 at 22:00; Stop 06/21/21 at 22:59; Status DC Diltiazem HCl 125 mg/Sodium Chloride 125 ml @ 5 mls/hr CONT PRN IV PER PROTOCOL; Start 06/21/21 at 22:15; Stop 06/21/21 at 22:10; Status DC Ondansetron HCl (Zofran) 4 mg PRN Q8HRS PRN IVP NAUSEA/VOMITING 1ST CHOICE; Start 06/21/21 at 22:15; Stop 06/22/21 at 22:14 Sodium Chloride 1,000 ml @ 85 mls/hr [id number] IV Last administered on 06/22/21at 01:00; Start 06/21/21 at 22:15; Stop 06/22/21 at 22:14 Acetaminophen (Tylenol) 650 mg PRN Q4HRS PRN PO FEVER > 100.3'F; Start 06/21/21 at 22:15; Stop 06/22/21 at 22:14 Diltiazem HCl 125 mg/Dextrose 125 ml @ 5 mls/hr CONT PRN PRN IV PER PROTOCOL Last administered on 06/21/21at 22:32; Start 06/21/21 at 22:15; Stop 06/22/21 at 10:10; Status DC Piperacillin Sod/ Tazobactam Sod (Zosyn Per Pharmacy) 1 each PRN DAILY PRN MC SEE COMMENTS; Start 06/21/21 at 22:45 Piperacillin Sod/ Tazobactam Sod 2.25 gm/Sodium Chloride 50 ml @ 100 mls/hr Q6HRS IV Last administered on 06/22/21at 11:16; Start 06/22/21 at 06:00 Heparin Sodium/ Dextrose 250 ml @ 8.16 mls/hr CONT PRN IV PER PROTOCOL; Start 06/22/21 at 08:45 Heparin Sodium (Porcine) (Heparin Sodium) 25 UNITS / KG PRN Q6HRS PRN IV FOR PTT < 40; Start 06/22/21 at 08:45 Metoprolol Tartrate (Lopressor Vial) 5 mg Q6HRS IVP Last administered on 06/22/21at 11:16; Start 06/22/21 at 12:00 Active Scripts Active Reported Magnesium Chloride 70 Mg Tablet.dr 70 Mg PO Hydrochlorothiazide Tablet (Hydrochlorothiazide) 25 Mg Tablet 25 Mg PO DAILY Lasix (Furosemide) 20 Mg Tablet 20 Mg PO BID Eliquis (Apixaban) 5 Mg Tablet 5 Mg PO Metformin Hcl 1,000 Mg Tablet 1,000 Mg PO BIDWMEALS Aspirin 81 Mg Tab.chew 1 Tab PO DAILY Cardizem Cd (Diltiazem Hcl) 180 Mg Cap.er.24h 1 Cap PO DAILY Cardizem Tablet (Diltiazem Hcl) 60 Mg Tablet 60 Mg PO QID Flomax (Tamsulosin Hcl) 0.4 Mg Cap.er.24h 1 Cap PO DAILY Simvastatin 80 Mg Tablet 1 Tab PO QHS 30 Days Timolol Maleate 5 Ml Drops 1 Drop OD BID Xalatan (Latanoprost) 2.5 Ml Drops 1 Drop OU QHS Allergies Allergies: Coded Allergies: No Known Drug Allergies (Unverified , 06/21/21) ROS Review of System Limited as per HPI, 2/2 Poor Historian/Lethargic Physical Exam Physical Exam General: No acute distress HEENT: Atraumatic, OM moist neck Supple Lungs: diminished bases, Non labored Heart: AFIB, 2/6 systolic murmur Extremities: (Bilateral LE pitting edema 3-4+ Abd Soft, NT , BS + Skin: No rashes Neuro: Normal speech, Sensation intact Psych/Mental Status: confused)\ No CVA or SP tenderness . Vital Signs Vital Signs Date Time Temp Pulse Resp B/P (MAP) Pulse Ox O2 Delivery O2 Flow Rate FiO2 06/22/21 11:16 97 100/63 06/22/21 11:00 16 100 Nasal Cannula 2.0 06/22/21 08:00 98.3 98.3 Assessment & Plan SUNNY - Cardiorenal/ATN ; UA unremarkable , CT abdomen- Kidneys and bladder Unremarkable . Non Oliguric . Recd Vanc and Lasix IV in the ER Supportive care, Maintain fluid balance, avoid nephrotoxins. Strict I/O Baseline unknown NSTEMI: per cardiology suspect demand mediated with multiorgan failure and AFIB RVR AFIB RVR: paroxysmal by hx Thrombocytopenia Severe transaminitis-POA Hx of NICM: Takotsubo Labs Labs Laboratory Tests Test 06/21/21 19:11 06/21/21 19:20 06/21/21 19:44 06/21/21 20:28 White Blood Count 16.2 x10^3/uL (4.0-11.0) Red Blood Count 4.43 x10^6/uL (4.30-5.70) Hemoglobin 14.3 g/dL (13.0-17.5) Hematocrit 43.9 % (39.0-53.0) Mean Corpuscular Volume 99 fL (79-100) Mean Corpuscular Hemoglobin 32 pg (25-35) Mean Corpuscular Hemoglobin Concent 33 g/dL (31-37) Red Cell Distribution Width 15.1 % (11.5-14.5) Platelet Count 58 x10^3/uL (140-400) Neutrophils (%) (Auto) 93 % (31-73) Lymphocytes (%) (Auto) 2 % (24-48) Monocytes (%) (Auto) 5 % (0-9) Eosinophils (%) (Auto) 0 % (0-3) Basophils (%) (Auto) 0 % (0-3) Neutrophils # (Auto) 15.0 x10^3/uL (1.8-7.7) Lymphocytes # (Auto) 0.3 x10^3/uL (1.0-4.8) Monocytes # (Auto) 0.8 x10^3/uL (0.0-1.1) Eosinophils # (Auto) 0.0 x10^3/uL (0.0-0.7) Basophils # (Auto) 0.1 x10^3/uL (0.0-0.2) Segmented Neutrophils % 93 % (35-66) Band Neutrophils % 4 % (0-9) Lymphocytes % 2 % (24-48) Monocytes % 1 % (0-10) Platelet Estimate Decreased (ADEQUATE) [place] Cells Present Prothrombin Time 33.4 SEC (11.7-14.0) Prothromb Time International Ratio 3.4 (0.8-1.1) Activated Partial Thromboplast Time 38 SEC (24-38) Sodium Level 143 mmol/L (136-145) Potassium Level 5.6 mmol/L (3.5-5.1) Chloride Level 103 mmol/L (98-107) Carbon Dioxide Level 13 mmol/L (21-32) Anion Gap 27 (6-14) Blood Urea Nitrogen 106 mg/dL (8-26) Creatinine 3.0 mg/dL (0.7-1.3) Estimated GFR (Cockcroft-Gault) 20.1 BUN/Creatinine Ratio 35 (6-20) Glucose Level 446 mg/dL (70-99) Lactic Acid Level 10.2 mmol/L (0.4-2.0) Calcium Level 10.0 mg/dL (8.5-10.1) Total Bilirubin 3.2 mg/dL (0.2-1.0) Aspartate Amino Transf (AST/SGOT) 2562 U/L (15-37) Alanine Aminotransferase (ALT/SGPT) 2035 U/L (16-63) Alkaline Phosphatase 161 U/L (46-116) Troponin I High Sensitivity 560 ng/L (4-75) FB-Hpm-G-Type Natriuretic Peptide > 07644 pg/mL (0-449) Total Protein 7.2 g/dL (6.4-8.2) Albumin 4.3 g/dL (3.4-5.0) Albumin/Globulin Ratio 1.5 (1.0-1.7) Procalcitonin 0.45 ng/mL (0.00-0.10) Thyroid Stimulating Hormone (TSH) 2.367 uIU/mL (0.358-3.74) Acetone Level Neg (NEG) Urine Collection Type Unknown Urine Color (Auto) Yellow Urine Turbidity Clear Urine pH (Auto) 5.0 (<5.0-8.0) Urine Specific [place] 1.027 (1.000-1.030) Urine Protein (Auto) 30 mg/dL (Negative) Urine Glucose (Auto)(UA) >=1000 mg/dL (Negative) Urine Ketones (Auto) Negative mg/dL (Negative) Urine Blood (Auto) Negative (Negative) Urine Nitrite Negative (Negative) Urine Bilirubin (Auto) Negative (Negative) Urine Urobilinogen (Auto) Normal mg/dL (Normal) Urine Leukocyte Esterase (Auto) Negative (Negative) Urine RBC 0 /HPF (0-2) Urine WBC 5-10 /HPF (0-4) Urine Squamous Epithelial Cells Few /LPF Urine Bacteria 0 /HPF (0-FEW) Urine Hyaline Casts Moderate /HPF Urine Mucus Slight /LPF O2 Saturation 99 % (92-99) Arterial Blood pH 7.40 (7.35-7.45) Arterial Blood pCO2 at Patient Temp 18 mmHg (35-46) Arterial Blood pO2 at Patient Temp 182 mmHg (65-108) Arterial Blood HCO3 11 mmol/L (21-28) Arterial Blood Base Excess -11 mmol/L (-3-3) FiO2 32 Influenza Type A Antigen Negative (NEGATIVE) Influenza Type B Antigen Negative (NEGATIVE) SARS-CoV-2 Antigen (Rapid) Negative (NEGATIVE) Test 06/21/21 22:33 06/22/21 04:00 Lactic Acid Level 4.8 mmol/L (0.4-2.0) Troponin I High Sensitivity 644 ng/L (4-75) 1011 ng/L (4-75) White Blood Count 12.8 x10^3/uL (4.0-11.0) Red Blood Count 3.89 x10^6/uL (4.30-5.70) Hemoglobin 12.5 g/dL (13.0-17.5) Hematocrit 37.5 % (39.0-53.0) Mean Corpuscular Volume 96 fL (79-100) Mean Corpuscular Hemoglobin 32 pg (25-35) Mean Corpuscular Hemoglobin Concent 33 g/dL (31-37) Red Cell Distribution Width 14.5 % (11.5-14.5) Platelet Count 46 x10^3/uL (140-400) Neutrophils (%) (Auto) 93 % (31-73) Lymphocytes (%) (Auto) 3 % (24-48) Monocytes (%) (Auto) 4 % (0-9) Eosinophils (%) (Auto) 0 % (0-3) Basophils (%) (Auto) 0 % (0-3) Neutrophils # (Auto) 11.9 x10^3/uL (1.8-7.7) Lymphocytes # (Auto) 0.4 x10^3/uL (1.0-4.8) Monocytes # (Auto) 0.6 x10^3/uL (0.0-1.1) Eosinophils # (Auto) 0.0 x10^3/uL (0.0-0.7) Basophils # (Auto) 0.0 x10^3/uL (0.0-0.2) Prothrombin Time 31.4 SEC (11.7-14.0) Prothromb Time International Ratio 3.1 (0.8-1.1) Heparin Anti-Xa Act, Unfractionated 0.21 IU/mL (0.30-0.70) Sodium Level 147 mmol/L (136-145) Potassium Level 4.1 mmol/L (3.5-5.1) Chloride Level 110 mmol/L (98-107) Carbon Dioxide Level 19 mmol/L (21-32) Anion Gap 18 (6-14) Blood Urea Nitrogen 105 mg/dL (8-26) Creatinine 2.7 mg/dL (0.7-1.3) Estimated GFR (Cockcroft-Gault) 22.7 BUN/Creatinine Ratio 39 (6-20) Glucose Level 308 mg/dL (70-99) Calcium Level 8.6 mg/dL (8.5-10.1) Total Bilirubin 2.2 mg/dL (0.2-1.0) Aspartate Amino Transf (AST/SGOT) 2166 U/L (15-37) Alanine Aminotransferase (ALT/SGPT) 1618 U/L (16-63) Alkaline Phosphatase 117 U/L (46-116) Creatine Kinase 323 U/L (39-308) Total Protein 5.4 g/dL (6.4-8.2) Albumin 3.3 g/dL (3.4-5.0) Albumin/Globulin Ratio 1.6 (1.0-1.7) Laboratory Tests Test 06/21/21 19:11 06/21/21 19:20 06/21/21 19:44 06/21/21 20:28 White Blood Count 16.2 x10^3/uL (4.0-11.0) Red Blood Count 4.43 x10^6/uL (4.30-5.70) Hemoglobin 14.3 g/dL (13.0-17.5) Hematocrit 43.9 % (39.0-53.0) Mean Corpuscular Volume 99 fL (79-100) Mean Corpuscular Hemoglobin 32 pg (25-35) Mean Corpuscular Hemoglobin Concent 33 g/dL (31-37) Red Cell Distribution Width 15.1 % (11.5-14.5) Platelet Count 58 x10^3/uL (140-400) Neutrophils (%) (Auto) 93 % (31-73) Lymphocytes (%) (Auto) 2 % (24-48) Monocytes (%) (Auto) 5 % (0-9) Eosinophils (%) (Auto) 0 % (0-3) Basophils (%) (Auto) 0 % (0-3) Neutrophils # (Auto) 15.0 x10^3/uL (1.8-7.7) Lymphocytes # (Auto) 0.3 x10^3/uL (1.0-4.8) Monocytes # (Auto) 0.8 x10^3/uL (0.0-1.1) Eosinophils # (Auto) 0.0 x10^3/uL (0.0-0.7) Basophils # (Auto) 0.1 x10^3/uL (0.0-0.2) Segmented Neutrophils % 93 % (35-66) Band Neutrophils % 4 % (0-9) Lymphocytes % 2 % (24-48) Monocytes % 1 % (0-10) Platelet Estimate Decreased (ADEQUATE) [place] Cells Present Prothrombin Time 33.4 SEC (11.7-14.0) Prothromb Time International Ratio 3.4 (0.8-1.1) Activated Partial Thromboplast Time 38 SEC (24-38) Sodium Level 143 mmol/L (136-145) Potassium Level 5.6 mmol/L (3.5-5.1) Chloride Level 103 mmol/L (98-107) Carbon Dioxide Level 13 mmol/L (21-32) Anion Gap 27 (6-14) Blood Urea Nitrogen 106 mg/dL (8-26) Creatinine 3.0 mg/dL (0.7-1.3) Estimated GFR (Cockcroft-Gault) 20.1 BUN/Creatinine Ratio 35 (6-20) Glucose Level 446 mg/dL (70-99) Lactic Acid Level 10.2 mmol/L (0.4-2.0) Calcium Level 10.0 mg/dL (8.5-10.1) Total Bilirubin 3.2 mg/dL (0.2-1.0) Aspartate Amino Transf (AST/SGOT) 2562 U/L (15-37) Alanine Aminotransferase (ALT/SGPT) 2035 U/L (16-63) Alkaline Phosphatase 161 U/L (46-116) Troponin I High Sensitivity 560 ng/L (4-75) ZG-Afi-B-Type Natriuretic Peptide > 14557 pg/mL (0-449) Total Protein 7.2 g/dL (6.4-8.2) Albumin 4.3 g/dL (3.4-5.0) Albumin/Globulin Ratio 1.5 (1.0-1.7) Procalcitonin 0.45 ng/mL (0.00-0.10) Thyroid Stimulating Hormone (TSH) 2.367 uIU/mL (0.358-3.74) Acetone Level Neg (NEG) Urine Collection Type Unknown Urine Color (Auto) Yellow Urine Turbidity Clear Urine pH (Auto) 5.0 (<5.0-8.0) Urine Specific [place] 1.027 (1.000-1.030) Urine Protein (Auto) 30 mg/dL (Negative) Urine Glucose (Auto)(UA) >=1000 mg/dL (Negative) Urine Ketones (Auto) Negative mg/dL (Negative) Urine Blood (Auto) Negative (Negative) Urine Nitrite Negative (Negative) Urine Bilirubin (Auto) Negative (Negative) Urine Urobilinogen (Auto) Normal mg/dL (Normal) Urine Leukocyte Esterase (Auto) Negative (Negative) Urine RBC 0 /HPF (0-2) Urine WBC 5-10 /HPF (0-4) Urine Squamous Epithelial Cells Few /LPF Urine Bacteria 0 /HPF (0-FEW) Urine Hyaline Casts Moderate /HPF Urine Mucus Slight /LPF O2 Saturation 99 % (92-99) Arterial Blood pH 7.40 (7.35-7.45) Arterial Blood pCO2 at Patient Temp 18 mmHg (35-46) Arterial Blood pO2 at Patient Temp 182 mmHg (65-108) Arterial Blood HCO3 11 mmol/L (21-28) Arterial Blood Base Excess -11 mmol/L (-3-3) FiO2 32 Influenza Type A Antigen Negative (NEGATIVE) Influenza Type B Antigen Negative (NEGATIVE) SARS-CoV-2 Antigen (Rapid) Negative (NEGATIVE) Test 06/21/21 22:33 06/22/21 04:00 Lactic Acid Level 4.8 mmol/L (0.4-2.0) Troponin I High Sensitivity 644 ng/L (4-75) 1011 ng/L (4-75) White Blood Count 12.8 x10^3/uL (4.0-11.0) Red Blood Count 3.89 x10^6/uL (4.30-5.70) Hemoglobin 12.5 g/dL (13.0-17.5) Hematocrit 37.5 % (39.0-53.0) Mean Corpuscular Volume 96 fL (79-100) Mean Corpuscular Hemoglobin 32 pg (25-35) Mean Corpuscular Hemoglobin Concent 33 g/dL (31-37) Red Cell Distribution Width 14.5 % (11.5-14.5) Platelet Count 46 x10^3/uL (140-400) Neutrophils (%) (Auto) 93 % (31-73) Lymphocytes (%) (Auto) 3 % (24-48) Monocytes (%) (Auto) 4 % (0-9) Eosinophils (%) (Auto) 0 % (0-3) Basophils (%) (Auto) 0 % (0-3) Neutrophils # (Auto) 11.9 x10^3/uL (1.8-7.7) Lymphocytes # (Auto) 0.4 x10^3/uL (1.0-4.8) Monocytes # (Auto) 0.6 x10^3/uL (0.0-1.1) Eosinophils # (Auto) 0.0 x10^3/uL (0.0-0.7) Basophils # (Auto) 0.0 x10^3/uL (0.0-0.2) Prothrombin Time 31.4 SEC (11.7-14.0) Prothromb Time International Ratio 3.1 (0.8-1.1) Heparin Anti-Xa Act, Unfractionated 0.21 IU/mL (0.30-0.70) Sodium Level 147 mmol/L (136-145) Potassium Level 4.1 mmol/L (3.5-5.1) Chloride Level 110 mmol/L (98-107) Carbon Dioxide Level 19 mmol/L (21-32) Anion Gap 18 (6-14) Blood Urea Nitrogen 105 mg/dL (8-26) Creatinine 2.7 mg/dL (0.7-1.3) Estimated GFR (Cockcroft-Gault) 22.7 BUN/Creatinine Ratio 39 (6-20) Glucose Level 308 mg/dL (70-99) Calcium Level 8.6 mg/dL (8.5-10.1) Total Bilirubin 2.2 mg/dL (0.2-1.0) Aspartate Amino Transf (AST/SGOT) 2166 U/L (15-37) Alanine Aminotransferase (ALT/SGPT) 1618 U/L (16-63) Alkaline Phosphatase 117 U/L (46-116) Creatine Kinase 323 U/L (39-308) Total Protein 5.4 g/dL (6.4-8.2) Albumin 3.3 g/dL (3.4-5.0) Albumin/Globulin Ratio 1.6 (1.0-1.7) Review All relevant outside records, renal labs, imaging studies, telemetry/EKG's were reviewed. Images Images CXR FINDINGS: Lungs: Hyperexpanded lung volume. No pulmonary mass or consolidation. The tracheobronchial tree and hilar structures are normal. Pleura: No pleural effusion or pneumothorax. Heart and Mediastinum: Cardiomegaly. Atherosclerosis of the thoracic aorta. IMPRESSION: No acute cardiopulmonary process. ALYSON DORAN MD Jun 22, 2021 11:32
--- NOTE | 2021-06-22 12:18 | PDOC ---
[employer] PROGRESS NOTE Date of Service DOS: DATE: 06/22/21 TIME: 12:18 Chief Complaint Chief Complaint Hypertension, hyperlipidemia, chronic anticoagulation, possible CHF, AFib. Vitals/I&O Vitals/I&O: Vital Signs Date Time Temp Pulse Resp B/P (MAP) Pulse Ox O2 Delivery O2 Flow Rate FiO2 06/22/21 11:16 97 100/63 06/22/21 11:00 16 100 Nasal Cannula 2.0 06/22/21 08:00 98.3 98.3 I & O 06/21/21 06/21/21 06/22/21 15:00 23:00 07:00 Intake Total 0 ml Output Total 2000 ml Balance -2000 ml Physical Exam General: Alert, Cooperative, No acute distress Heart: Other (AFIB, 2/6 systolic murmur to LLS border) Extremities: Other (Bilateral LE pitting edema 4+) Skin: No rashes Labs Labs: Laboratory Tests Test 06/21/21 19:11 06/21/21 19:20 06/21/21 19:44 06/21/21 20:28 White Blood Count 16.2 x10^3/uL (4.0-11.0) Red Blood Count 4.43 x10^6/uL (4.30-5.70) Hemoglobin 14.3 g/dL (13.0-17.5) Hematocrit 43.9 % (39.0-53.0) Mean Corpuscular Volume 99 fL (79-100) Mean Corpuscular Hemoglobin 32 pg (25-35) Mean Corpuscular Hemoglobin Concent 33 g/dL (31-37) Red Cell Distribution Width 15.1 % (11.5-14.5) Platelet Count 58 x10^3/uL (140-400) Neutrophils (%) (Auto) 93 % (31-73) Lymphocytes (%) (Auto) 2 % (24-48) Monocytes (%) (Auto) 5 % (0-9) Eosinophils (%) (Auto) 0 % (0-3) Basophils (%) (Auto) 0 % (0-3) Neutrophils # (Auto) 15.0 x10^3/uL (1.8-7.7) Lymphocytes # (Auto) 0.3 x10^3/uL (1.0-4.8) Monocytes # (Auto) 0.8 x10^3/uL (0.0-1.1) Eosinophils # (Auto) 0.0 x10^3/uL (0.0-0.7) Basophils # (Auto) 0.1 x10^3/uL (0.0-0.2) Segmented Neutrophils % 93 % (35-66) Band Neutrophils % 4 % (0-9) Lymphocytes % 2 % (24-48) Monocytes % 1 % (0-10) Platelet Estimate Decreased (ADEQUATE) Brianna Cells Present Prothrombin Time 33.4 SEC (11.7-14.0) Prothromb Time International Ratio 3.4 (0.8-1.1) Activated Partial Thromboplast Time 38 SEC (24-38) Sodium Level 143 mmol/L (136-145) Potassium Level 5.6 mmol/L (3.5-5.1) Chloride Level 103 mmol/L (98-107) Carbon Dioxide Level 13 mmol/L (21-32) Anion Gap 27 (6-14) Blood Urea Nitrogen 106 mg/dL (8-26) Creatinine 3.0 mg/dL (0.7-1.3) Estimated GFR (Cockcroft-Gault) 20.1 BUN/Creatinine Ratio 35 (6-20) Glucose Level 446 mg/dL (70-99) Lactic Acid Level 10.2 mmol/L (0.4-2.0) Calcium Level 10.0 mg/dL (8.5-10.1) Total Bilirubin 3.2 mg/dL (0.2-1.0) Aspartate Amino Transf (AST/SGOT) 2562 U/L (15-37) Alanine Aminotransferase (ALT/SGPT) 2035 U/L (16-63) Alkaline Phosphatase 161 U/L (46-116) Troponin I High Sensitivity 560 ng/L (4-75) [id number] Natriuretic Peptide > 88365 pg/mL (0-449) Total Protein 7.2 g/dL (6.4-8.2) Albumin 4.3 g/dL (3.4-5.0) Albumin/Globulin Ratio 1.5 (1.0-1.7) Procalcitonin 0.45 ng/mL (0.00-0.10) Thyroid Stimulating Hormone (TSH) 2.367 uIU/mL (0.358-3.74) Acetone Level Neg (NEG) Urine Collection Type Unknown Urine Color (Auto) Yellow Urine Turbidity Clear Urine pH (Auto) 5.0 (<5.0-8.0) Urine Specific [place] 1.027 (1.000-1.030) Urine Protein (Auto) 30 mg/dL (Negative) Urine Glucose (Auto)(UA) >=1000 mg/dL (Negative) Urine Ketones (Auto) Negative mg/dL (Negative) Urine Blood (Auto) Negative (Negative) Urine Nitrite Negative (Negative) Urine Bilirubin (Auto) Negative (Negative) Urine Urobilinogen (Auto) Normal mg/dL (Normal) Urine Leukocyte Esterase (Auto) Negative (Negative) Urine RBC 0 /HPF (0-2) Urine WBC 5-10 /HPF (0-4) Urine Squamous Epithelial Cells Few /LPF Urine Bacteria 0 /HPF (0-FEW) Urine Hyaline Casts Moderate /HPF Urine Mucus Slight /LPF O2 Saturation 99 % (92-99) Arterial Blood pH 7.40 (7.35-7.45) Arterial Blood pCO2 at Patient Temp 18 mmHg (35-46) Arterial Blood pO2 at Patient Temp 182 mmHg (65-108) Arterial Blood HCO3 11 mmol/L (21-28) Arterial Blood Base Excess -11 mmol/L (-3-3) FiO2 32 Influenza Type A Antigen Negative (NEGATIVE) Influenza Type B Antigen Negative (NEGATIVE) SARS-CoV-2 Antigen (Rapid) Negative (NEGATIVE) Test 06/21/21 22:33 06/22/21 04:00 Lactic Acid Level 4.8 mmol/L (0.4-2.0) Troponin I High Sensitivity 644 ng/L (4-75) 1011 ng/L (4-75) White Blood Count 12.8 x10^3/uL (4.0-11.0) Red Blood Count 3.89 x10^6/uL (4.30-5.70) Hemoglobin 12.5 g/dL (13.0-17.5) Hematocrit 37.5 % (39.0-53.0) Mean Corpuscular Volume 96 fL (79-100) Mean Corpuscular Hemoglobin 32 pg (25-35) Mean Corpuscular Hemoglobin Concent 33 g/dL (31-37) Red Cell Distribution Width 14.5 % (11.5-14.5) Platelet Count 46 x10^3/uL (140-400) Neutrophils (%) (Auto) 93 % (31-73) Lymphocytes (%) (Auto) 3 % (24-48) Monocytes (%) (Auto) 4 % (0-9) Eosinophils (%) (Auto) 0 % (0-3) Basophils (%) (Auto) 0 % (0-3) Neutrophils # (Auto) 11.9 x10^3/uL (1.8-7.7) Lymphocytes # (Auto) 0.4 x10^3/uL (1.0-4.8) Monocytes # (Auto) 0.6 x10^3/uL (0.0-1.1) Eosinophils # (Auto) 0.0 x10^3/uL (0.0-0.7) Basophils # (Auto) 0.0 x10^3/uL (0.0-0.2) Prothrombin Time 31.4 SEC (11.7-14.0) Prothromb Time International Ratio 3.1 (0.8-1.1) Heparin Anti-Xa Act, Unfractionated 0.21 IU/mL (0.30-0.70) Sodium Level 147 mmol/L (136-145) Potassium Level 4.1 mmol/L (3.5-5.1) Chloride Level 110 mmol/L (98-107) Carbon Dioxide Level 19 mmol/L (21-32) Anion Gap 18 (6-14) Blood Urea Nitrogen 105 mg/dL (8-26) Creatinine 2.7 mg/dL (0.7-1.3) Estimated GFR (Cockcroft-Gault) 22.7 BUN/Creatinine Ratio 39 (6-20) Glucose Level 308 mg/dL (70-99) Calcium Level 8.6 mg/dL (8.5-10.1) Total Bilirubin 2.2 mg/dL (0.2-1.0) Aspartate Amino Transf (AST/SGOT) 2166 U/L (15-37) Alanine Aminotransferase (ALT/SGPT) 1618 U/L (16-63) Alkaline Phosphatase 117 U/L (46-116) Creatine Kinase 323 U/L (39-308) Total Protein 5.4 g/dL (6.4-8.2) Albumin 3.3 g/dL (3.4-5.0) Albumin/Globulin Ratio 1.6 (1.0-1.7) Hepatitis A IgM Antibody Nonreactive (Nonreactive) Hepatitis B Surface Antigen Nonreactive (Nonreactive) Hepatitis B Core IgM Antibody Nonreactive (Nonreactive) Hepatitis C IgG Antibody Nonreactive (Nonreactive) Assessment and Plan Assessmemt and Plan Problems Medical Problems: (1) Acute metabolic encephalopathy Status: Acute (2) Acute urinary retention Status: Acute (3) Atrial fibrillation with rapid ventricular response Status: Acute (4) Cholestasis Status: Acute (5) Lactic acidemia Status: Acute (6) Metabolic acidosis Status: Acute (7) NSTEMI (non-ST elevated myocardial infarction) Status: Acute (8) Shock Status: Acute (9) Transaminasemia Status: Acute (10) Volume overload Status: Acute Comment Review of Relevant I have reviewed the following items scot (where applicable) has been applied. Medications: Current Medications Medications (Trade) Dose Ordered Sig/Susy Route PRN Reason Start Time Stop Time Status Last Admin Dose Admin Vancomycin HCl 1.5 gm/Sodium Chloride 500 ml @ 250 mls/hr 1X ONCE IV 06/21/21 21:00 06/21/21 22:59 DC 06/21/21 20:32 Diltiazem HCl (Cardizem Iv Push) 15 mg 1X ONCE IVP 06/21/21 19:30 06/21/21 19:53 DC 06/21/21 19:58 Piperacillin Sod/ Tazobactam Sod 4.5 gm/Dextrose 100 ml @ 200 mls/hr 1X ONCE IV 06/21/21 20:00 06/21/21 20:29 DC 06/21/21 20:23 Insulin Human Lispro (HumaLOG) 10 units 1X ONCE SQ 06/21/21 20:30 06/21/21 20:31 DC 06/21/21 20:33 Furosemide (Lasix) 40 mg 1X ONCE IVP 06/21/21 20:30 06/21/21 20:31 DC 06/21/21 20:39 Sodium Chloride 250 ml @ 500 mls/hr 1X ONCE IV 06/21/21 20:30 06/21/21 20:59 DC 06/21/21 20:41 Aspirin (Aspirin Chewable) 324 mg 1X ONCE PO 06/21/21 20:30 06/21/21 20:31 DC 06/21/21 20:40 Sodium Chloride 1,000 ml @ 1,000 mls/hr 1X ONCE IV 06/21/21 21:30 06/21/21 22:29 DC 06/21/21 21:53 Heparin Sodium (Porcine) (Heparin Sodium) 3,900 unit 1X ONCE IV 06/21/21 21:00 06/21/21 21:02 DC 06/21/21 21:51 Heparin Sodium/ Dextrose 250 ml @ 7.8 mls/hr CONT PRN IV PER PROTOCOL 06/21/21 21:00 06/22/21 08:38 DC 06/21/21 21:52 Info (Anti-Coagulation Monitoring By Pharmacy) 1 each PRN DAILY PRN MC PER PROTOCOL 06/21/21 21:15 06/22/21 08:42 Sodium Chloride 500 ml @ 500 mls/hr 1X ONCE IV 06/21/21 22:00 06/21/21 22:59 DC 06/21/21 22:00 Sodium Chloride 1,000 ml @ 85 mls/hr [id number] IV 06/21/21 22:15 06/22/21 22:14 06/22/21 01:00 Diltiazem HCl 125 mg/Dextrose 125 ml @ 5 mls/hr CONT PRN PRN IV PER PROTOCOL 06/21/21 22:15 06/22/21 10:10 DC 06/21/21 22:32 Piperacillin Sod/ Tazobactam Sod 2.25 gm/Sodium Chloride 50 ml @ 100 mls/hr Q6HRS IV 06/22/21 06:00 06/22/21 11:16 Metoprolol Tartrate (Lopressor Vial) 5 mg Q6HRS IVP 06/22/21 12:00 06/22/21 11:16 Justifications for Admission Other Justification VANESSA HENAO III DO Jun 22, 2021 12:18
--- NOTE | 2021-06-22 12:21 | PDOC ---
[employer] PROGRESS NOTE Date of Service DOS: DATE: 06/22/21 TIME: 12:18 Chief Complaint Chief Complaint Possible sepsis with multiorgan failure Atrial fibrillation with rapid ventricular response, renal failure, azotemia, hyperkalemia, transaminitis, elevated troponin, leukocytosis. History of the following; Hypertension, hyperlipidemia, chronic anticoagulation, possible CHF, AFib. History of Present Illness History of Present Illness 06/22/2021 Patient seen and examined in the ICU He is resting with no apparent distress He is on IV Zosyn and IV Cardizem drip Heparin is hanging but we just turned it off this morning Discussed with RN Discussed with case management Chart reviewed He remains critically ill Vitals/I&O Vitals/I&O: Vital Signs Date Time Temp Pulse Resp B/P (MAP) Pulse Ox O2 Delivery O2 Flow Rate FiO2 06/22/21 11:16 97 100/63 06/22/21 11:00 16 100 Nasal Cannula 2.0 06/22/21 08:00 98.3 98.3 I & O 06/21/21 06/21/21 06/22/21 15:00 23:00 07:00 Intake Total 0 ml Output Total 2000 ml Balance -2000 ml Physical Exam General: mild distress, Other (Nonverbal) Heart: Other (AFIB, 2/6 systolic murmur to LLS border) Lungs: Wheezing, Crackles Abdomen: Normal bowel sounds Extremities: Other (Bilateral LE pitting edema 4+) Skin: Other (He has chronic venous stasis and thin skin) Labs Labs: Laboratory Tests Test 06/21/21 19:11 06/21/21 19:20 06/21/21 19:44 06/21/21 20:28 White Blood Count 16.2 x10^3/uL (4.0-11.0) Red Blood Count 4.43 x10^6/uL (4.30-5.70) Hemoglobin 14.3 g/dL (13.0-17.5) Hematocrit 43.9 % (39.0-53.0) Mean Corpuscular Volume 99 fL (79-100) Mean Corpuscular Hemoglobin 32 pg (25-35) Mean Corpuscular Hemoglobin Concent 33 g/dL (31-37) Red Cell Distribution Width 15.1 % (11.5-14.5) Platelet Count 58 x10^3/uL (140-400) Neutrophils (%) (Auto) 93 % (31-73) Lymphocytes (%) (Auto) 2 % (24-48) Monocytes (%) (Auto) 5 % (0-9) Eosinophils (%) (Auto) 0 % (0-3) Basophils (%) (Auto) 0 % (0-3) Neutrophils # (Auto) 15.0 x10^3/uL (1.8-7.7) Lymphocytes # (Auto) 0.3 x10^3/uL (1.0-4.8) Monocytes # (Auto) 0.8 x10^3/uL (0.0-1.1) Eosinophils # (Auto) 0.0 x10^3/uL (0.0-0.7) Basophils # (Auto) 0.1 x10^3/uL (0.0-0.2) Segmented Neutrophils % 93 % (35-66) Band Neutrophils % 4 % (0-9) Lymphocytes % 2 % (24-48) Monocytes % 1 % (0-10) Platelet Estimate Decreased (ADEQUATE) Brianna Cells Present Prothrombin Time 33.4 SEC (11.7-14.0) Prothromb Time International Ratio 3.4 (0.8-1.1) Activated Partial Thromboplast Time 38 SEC (24-38) Sodium Level 143 mmol/L (136-145) Potassium Level 5.6 mmol/L (3.5-5.1) Chloride Level 103 mmol/L (98-107) Carbon Dioxide Level 13 mmol/L (21-32) Anion Gap 27 (6-14) Blood Urea Nitrogen 106 mg/dL (8-26) Creatinine 3.0 mg/dL (0.7-1.3) Estimated GFR (Cockcroft-Gault) 20.1 BUN/Creatinine Ratio 35 (6-20) Glucose Level 446 mg/dL (70-99) Lactic Acid Level 10.2 mmol/L (0.4-2.0) Calcium Level 10.0 mg/dL (8.5-10.1) Total Bilirubin 3.2 mg/dL (0.2-1.0) Aspartate Amino Transf (AST/SGOT) 2562 U/L (15-37) Alanine Aminotransferase (ALT/SGPT) 2035 U/L (16-63) Alkaline Phosphatase 161 U/L (46-116) Troponin I High Sensitivity 560 ng/L (4-75) [id number]-Type Natriuretic Peptide > 88647 pg/mL (0-449) Total Protein 7.2 g/dL (6.4-8.2) Albumin 4.3 g/dL (3.4-5.0) Albumin/Globulin Ratio 1.5 (1.0-1.7) Procalcitonin 0.45 ng/mL (0.00-0.10) Thyroid Stimulating Hormone (TSH) 2.367 uIU/mL (0.358-3.74) Acetone Level Neg (NEG) Urine Collection Type Unknown Urine Color (Auto) Yellow Urine Turbidity Clear Urine pH (Auto) 5.0 (<5.0-8.0) Urine Specific [place] 1.027 (1.000-1.030) Urine Protein (Auto) 30 mg/dL (Negative) Urine Glucose (Auto)(UA) >=1000 mg/dL (Negative) Urine Ketones (Auto) Negative mg/dL (Negative) Urine Blood (Auto) Negative (Negative) Urine Nitrite Negative (Negative) Urine Bilirubin (Auto) Negative (Negative) Urine Urobilinogen (Auto) Normal mg/dL (Normal) Urine Leukocyte Esterase (Auto) Negative (Negative) Urine RBC 0 /HPF (0-2) Urine WBC 5-10 /HPF (0-4) Urine Squamous Epithelial Cells Few /LPF Urine Bacteria 0 /HPF (0-FEW) Urine Hyaline Casts Moderate /HPF Urine Mucus Slight /LPF O2 Saturation 99 % (92-99) Arterial Blood pH 7.40 (7.35-7.45) Arterial Blood pCO2 at Patient Temp 18 mmHg (35-46) Arterial Blood pO2 at Patient Temp 182 mmHg (65-108) Arterial Blood HCO3 11 mmol/L (21-28) Arterial Blood Base Excess -11 mmol/L (-3-3) FiO2 32 Influenza Type A Antigen Negative (NEGATIVE) Influenza Type B Antigen Negative (NEGATIVE) SARS-CoV-2 Antigen (Rapid) Negative (NEGATIVE) Test 06/21/21 22:33 06/22/21 04:00 Lactic Acid Level 4.8 mmol/L (0.4-2.0) Troponin I High Sensitivity 644 ng/L (4-75) 1011 ng/L (4-75) White Blood Count 12.8 x10^3/uL (4.0-11.0) Red Blood Count 3.89 x10^6/uL (4.30-5.70) Hemoglobin 12.5 g/dL (13.0-17.5) Hematocrit 37.5 % (39.0-53.0) Mean Corpuscular Volume 96 fL (79-100) Mean Corpuscular Hemoglobin 32 pg (25-35) Mean Corpuscular Hemoglobin Concent 33 g/dL (31-37) Red Cell Distribution Width 14.5 % (11.5-14.5) Platelet Count 46 x10^3/uL (140-400) Neutrophils (%) (Auto) 93 % (31-73) Lymphocytes (%) (Auto) 3 % (24-48) Monocytes (%) (Auto) 4 % (0-9) Eosinophils (%) (Auto) 0 % (0-3) Basophils (%) (Auto) 0 % (0-3) Neutrophils # (Auto) 11.9 x10^3/uL (1.8-7.7) Lymphocytes # (Auto) 0.4 x10^3/uL (1.0-4.8) Monocytes # (Auto) 0.6 x10^3/uL (0.0-1.1) Eosinophils # (Auto) 0.0 x10^3/uL (0.0-0.7) Basophils # (Auto) 0.0 x10^3/uL (0.0-0.2) Prothrombin Time 31.4 SEC (11.7-14.0) Prothromb Time International Ratio 3.1 (0.8-1.1) Heparin Anti-Xa Act, Unfractionated 0.21 IU/mL (0.30-0.70) Sodium Level 147 mmol/L (136-145) Potassium Level 4.1 mmol/L (3.5-5.1) Chloride Level 110 mmol/L (98-107) Carbon Dioxide Level 19 mmol/L (21-32) Anion Gap 18 (6-14) Blood Urea Nitrogen 105 mg/dL (8-26) Creatinine 2.7 mg/dL (0.7-1.3) Estimated GFR (Cockcroft-Gault) 22.7 BUN/Creatinine Ratio 39 (6-20) Glucose Level 308 mg/dL (70-99) Calcium Level 8.6 mg/dL (8.5-10.1) Total Bilirubin 2.2 mg/dL (0.2-1.0) Aspartate Amino Transf (AST/SGOT) 2166 U/L (15-37) Alanine Aminotransferase (ALT/SGPT) 1618 U/L (16-63) Alkaline Phosphatase 117 U/L (46-116) Creatine Kinase 323 U/L (39-308) Total Protein 5.4 g/dL (6.4-8.2) Albumin 3.3 g/dL (3.4-5.0) Albumin/Globulin Ratio 1.6 (1.0-1.7) Hepatitis A IgM Antibody Nonreactive (Nonreactive) Hepatitis B Surface Antigen Nonreactive (Nonreactive) Hepatitis B Core IgM Antibody Nonreactive (Nonreactive) Hepatitis C IgG Antibody Nonreactive (Nonreactive) Assessment and Plan Assessmemt and Plan Problems Medical Problems: (1) Acute metabolic encephalopathy Status: Acute (2) Acute urinary retention Status: Acute (3) Atrial fibrillation with rapid ventricular response Status: Acute (4) Cholestasis Status: Acute (5) Lactic acidemia Status: Acute (6) Metabolic acidosis Status: Acute (7) NSTEMI (non-ST elevated myocardial infarction) Status: Acute (8) Shock Status: Acute (9) Transaminasemia Status: Acute (10) Volume overload Status: Acut Possible sepsis with multiorgan failure Atrial fibrillation with rapid ventricular response, renal failure, azotemia, hyperkalemia, transaminitis, elevated troponin, leukocytosis. History of the following; Hypertension, hyperlipidemia, chronic anticoagulation, possible CHF, AFib. Plan ICU monitoring Continue the IV Zosyn Cardizem drip We have multiple consults following including cardiology pulmonary nephrology infectious disease and GI Trend labs Home meds when possible DVT prophylaxis Full code Appreciate subspecialist input Prognosis long-term extremely guarded CC time 31-minute Comment Review of Relevant I have reviewed the following items scot (where applicable) has been applied. Medications: Current Medications Medications (Trade) Dose Ordered Sig/Susy Route PRN Reason Start Time Stop Time Status Last Admin Dose Admin Vancomycin HCl 1.5 gm/Sodium Chloride 500 ml @ 250 mls/hr 1X ONCE IV 06/21/21 21:00 06/21/21 22:59 DC 06/21/21 20:32 Diltiazem HCl (Cardizem Iv Push) 15 mg 1X ONCE IVP 06/21/21 19:30 06/21/21 19:53 DC 06/21/21 19:58 Piperacillin Sod/ Tazobactam Sod 4.5 gm/Dextrose 100 ml @ 200 mls/hr 1X ONCE IV 06/21/21 20:00 06/21/21 20:29 DC 06/21/21 20:23 Insulin Human Lispro (HumaLOG) 10 units 1X ONCE SQ 06/21/21 20:30 06/21/21 20:31 DC 06/21/21 20:33 Furosemide (Lasix) 40 mg 1X ONCE IVP 06/21/21 20:30 06/21/21 20:31 DC 06/21/21 20:39 Sodium Chloride 250 ml @ 500 mls/hr 1X ONCE IV 06/21/21 20:30 06/21/21 20:59 DC 06/21/21 20:41 Aspirin (Aspirin Chewable) 324 mg 1X ONCE PO 06/21/21 20:30 06/21/21 20:31 DC 06/21/21 20:40 Sodium Chloride 1,000 ml @ 1,000 mls/hr 1X ONCE IV 06/21/21 21:30 06/21/21 22:29 DC 06/21/21 21:53 Heparin Sodium (Porcine) (Heparin Sodium) 3,900 unit 1X ONCE IV 06/21/21 21:00 06/21/21 21:02 DC 06/21/21 21:51 Heparin Sodium/ Dextrose 250 ml @ 7.8 mls/hr CONT PRN IV PER PROTOCOL 06/21/21 21:00 06/22/21 08:38 DC 06/21/21 21:52 Info (Anti-Coagulation Monitoring By Pharmacy) 1 each PRN DAILY PRN MC PER PROTOCOL 06/21/21 21:15 06/22/21 08:42 Sodium Chloride 500 ml @ 500 mls/hr 1X ONCE IV 06/21/21 22:00 06/21/21 22:59 DC 06/21/21 22:00 Sodium Chloride 1,000 ml @ 85 mls/hr [id number] IV 06/21/21 22:15 06/22/21 22:14 06/22/21 01:00 Diltiazem HCl 125 mg/Dextrose 125 ml @ 5 mls/hr CONT PRN PRN IV PER PROTOCOL 06/21/21 22:15 06/22/21 10:10 DC 06/21/21 22:32 Piperacillin Sod/ Tazobactam Sod 2.25 gm/Sodium Chloride 50 ml @ 100 mls/hr Q6HRS IV 06/22/21 06:00 06/22/21 11:16 Metoprolol Tartrate (Lopressor Vial) 5 mg Q6HRS IVP 06/22/21 12:00 06/22/21 11:16 Justifications for Admission Other Justification VANESSA HENAO III DO Jun 22, 2021 12:21
--- NOTE | 2021-06-22 13:55 | PDOC ---
Infectious Disease Note Vital Signs: Vital Signs Vital Signs Date Time Temp Pulse Resp B/P (MAP) Pulse Ox O2 Delivery O2 Flow Rate FiO2 06/22/21 12:00 Room Air 06/22/21 12:00 99.2 87 16 104/66 100 99.2 06/22/21 11:00 2.0 Medications: Inpatient Meds: Medications reviewed. Labs: Lab Laboratory Tests Test 06/21/21 19:11 06/21/21 19:20 06/21/21 19:44 06/21/21 20:28 White Blood Count 16.2 x10^3/uL (4.0-11.0) Red Blood Count 4.43 x10^6/uL (4.30-5.70) Hemoglobin 14.3 g/dL (13.0-17.5) Hematocrit 43.9 % (39.0-53.0) Mean Corpuscular Volume 99 fL (79-100) Mean Corpuscular Hemoglobin 32 pg (25-35) Mean Corpuscular Hemoglobin Concent 33 g/dL (31-37) Red Cell Distribution Width 15.1 % (11.5-14.5) Platelet Count 58 x10^3/uL (140-400) Neutrophils (%) (Auto) 93 % (31-73) Lymphocytes (%) (Auto) 2 % (24-48) Monocytes (%) (Auto) 5 % (0-9) Eosinophils (%) (Auto) 0 % (0-3) Basophils (%) (Auto) 0 % (0-3) Neutrophils # (Auto) 15.0 x10^3/uL (1.8-7.7) Lymphocytes # (Auto) 0.3 x10^3/uL (1.0-4.8) Monocytes # (Auto) 0.8 x10^3/uL (0.0-1.1) Eosinophils # (Auto) 0.0 x10^3/uL (0.0-0.7) Basophils # (Auto) 0.1 x10^3/uL (0.0-0.2) Segmented Neutrophils % 93 % (35-66) Band Neutrophils % 4 % (0-9) Lymphocytes % 2 % (24-48) Monocytes % 1 % (0-10) Platelet Estimate Decreased (ADEQUATE) Brianna Cells Present Prothrombin Time 33.4 SEC (11.7-14.0) Prothromb Time International Ratio 3.4 (0.8-1.1) Activated Partial Thromboplast Time 38 SEC (24-38) Sodium Level 143 mmol/L (136-145) Potassium Level 5.6 mmol/L (3.5-5.1) Chloride Level 103 mmol/L (98-107) Carbon Dioxide Level 13 mmol/L (21-32) Anion Gap 27 (6-14) Blood Urea Nitrogen 106 mg/dL (8-26) Creatinine 3.0 mg/dL (0.7-1.3) Estimated GFR (Cockcroft-Gault) 20.1 BUN/Creatinine Ratio 35 (6-20) Glucose Level 446 mg/dL (70-99) Lactic Acid Level 10.2 mmol/L (0.4-2.0) Calcium Level 10.0 mg/dL (8.5-10.1) Total Bilirubin 3.2 mg/dL (0.2-1.0) Aspartate Amino Transf (AST/SGOT) 2562 U/L (15-37) Alanine Aminotransferase (ALT/SGPT) 2035 U/L (16-63) Alkaline Phosphatase 161 U/L (46-116) Troponin I High Sensitivity 560 ng/L (4-75) [id number] Natriuretic Peptide > 62131 pg/mL (0-449) Total Protein 7.2 g/dL (6.4-8.2) Albumin 4.3 g/dL (3.4-5.0) Albumin/Globulin Ratio 1.5 (1.0-1.7) Procalcitonin 0.45 ng/mL (0.00-0.10) Thyroid Stimulating Hormone (TSH) 2.367 uIU/mL (0.358-3.74) Acetone Level Neg (NEG) Urine Collection Type Unknown Urine Color (Auto) Yellow Urine Turbidity Clear Urine pH (Auto) 5.0 (<5.0-8.0) Urine Specific [place] 1.027 (1.000-1.030) Urine Protein (Auto) 30 mg/dL (Negative) Urine Glucose (Auto)(UA) >=1000 mg/dL (Negative) Urine Ketones (Auto) Negative mg/dL (Negative) Urine Blood (Auto) Negative (Negative) Urine Nitrite Negative (Negative) Urine Bilirubin (Auto) Negative (Negative) Urine Urobilinogen (Auto) Normal mg/dL (Normal) Urine Leukocyte Esterase (Auto) Negative (Negative) Urine RBC 0 /HPF (0-2) Urine WBC 5-10 /HPF (0-4) Urine Squamous Epithelial Cells Few /LPF Urine Bacteria 0 /HPF (0-FEW) Urine Hyaline Casts Moderate /HPF Urine Mucus Slight /LPF O2 Saturation 99 % (92-99) Arterial Blood pH 7.40 (7.35-7.45) Arterial Blood pCO2 at Patient Temp 18 mmHg (35-46) Arterial Blood pO2 at Patient Temp 182 mmHg (65-108) Arterial Blood HCO3 11 mmol/L (21-28) Arterial Blood Base Excess -11 mmol/L (-3-3) FiO2 32 Influenza Type A Antigen Negative (NEGATIVE) Influenza Type B Antigen Negative (NEGATIVE) SARS-CoV-2 Antigen (Rapid) Negative (NEGATIVE) Test 06/21/21 22:33 06/22/21 04:00 Lactic Acid Level 4.8 mmol/L (0.4-2.0) Troponin I High Sensitivity 644 ng/L (4-75) 1011 ng/L (4-75) White Blood Count 12.8 x10^3/uL (4.0-11.0) Red Blood Count 3.89 x10^6/uL (4.30-5.70) Hemoglobin 12.5 g/dL (13.0-17.5) Hematocrit 37.5 % (39.0-53.0) Mean Corpuscular Volume 96 fL (79-100) Mean Corpuscular Hemoglobin 32 pg (25-35) Mean Corpuscular Hemoglobin Concent 33 g/dL (31-37) Red Cell Distribution Width 14.5 % (11.5-14.5) Platelet Count 46 x10^3/uL (140-400) Neutrophils (%) (Auto) 93 % (31-73) Lymphocytes (%) (Auto) 3 % (24-48) Monocytes (%) (Auto) 4 % (0-9) Eosinophils (%) (Auto) 0 % (0-3) Basophils (%) (Auto) 0 % (0-3) Neutrophils # (Auto) 11.9 x10^3/uL (1.8-7.7) Lymphocytes # (Auto) 0.4 x10^3/uL (1.0-4.8) Monocytes # (Auto) 0.6 x10^3/uL (0.0-1.1) Eosinophils # (Auto) 0.0 x10^3/uL (0.0-0.7) Basophils # (Auto) 0.0 x10^3/uL (0.0-0.2) Prothrombin Time 31.4 SEC (11.7-14.0) Prothromb Time International Ratio 3.1 (0.8-1.1) Heparin Anti-Xa Act, Unfractionated 0.21 IU/mL (0.30-0.70) Sodium Level 147 mmol/L (136-145) Potassium Level 4.1 mmol/L (3.5-5.1) Chloride Level 110 mmol/L (98-107) Carbon Dioxide Level 19 mmol/L (21-32) Anion Gap 18 (6-14) Blood Urea Nitrogen 105 mg/dL (8-26) Creatinine 2.7 mg/dL (0.7-1.3) Estimated GFR (Cockcroft-Gault) 22.7 BUN/Creatinine Ratio 39 (6-20) Glucose Level 308 mg/dL (70-99) Calcium Level 8.6 mg/dL (8.5-10.1) Total Bilirubin 2.2 mg/dL (0.2-1.0) Aspartate Amino Transf (AST/SGOT) 2166 U/L (15-37) Alanine Aminotransferase (ALT/SGPT) 1618 U/L (16-63) Alkaline Phosphatase 117 U/L (46-116) Creatine Kinase 323 U/L (39-308) Total Protein 5.4 g/dL (6.4-8.2) Albumin 3.3 g/dL (3.4-5.0) Albumin/Globulin Ratio 1.6 (1.0-1.7) Hepatitis A IgM Antibody Nonreactive (Nonreactive) Hepatitis B Surface Antigen Nonreactive (Nonreactive) Hepatitis B Core IgM Antibody Nonreactive (Nonreactive) Hepatitis C IgG Antibody Nonreactive (Nonreactive) Objective: Assessment: Patient seen and examined ID consult dictated Thank you Impression Sepsis with multiorgan failure Leukocytosis could have reactive component Lower extremity edema with possible secondary superimposed cellulitis A. fib with RVR, non-STEMI SUNNY Abnormal LFTs Thrombocytopenia Plan: Plan of Care Recommendations Continue Zosyn Status post 1 dose of vancomycin. We will give Zyvox for now. Would like to avoid IV vancomycin due to SUNNY and daptomycin due to elevated CK Elevated lower extremity Follow-up Doppler venous ultrasound Monitor labs and cultures Continue supportive care Discussed with VIOLETTA RAYMOND MD Jun 22, 2021 13:55
--- NOTE | 2021-06-22 14:07 | CONS ---
DATE OF CONSULTATION: 06/22/2021 REQUESTING PHYSICIAN: Hilton Montelongo DO REASON FOR CONSULTATION: Possible sepsis. HISTORY OF PRESENT ILLNESS: An 85-year-old male, unable to give history, currently in ICU, on IV Cardizem for non-STEMI, AFib with RVR. The patient has history of hypertension, hyperlipidemia, coronary artery disease, diabetes, who lives at home with family and was brought in by EMS for progressively worsening generalized weakness, lethargy and altered mental status. He was found to be hypoxic, requiring oxygen by 4 liters, AFib with RVR and ST depression, blood glucose was 400. He was afebrile. White count was elevated at 16.2, platelets of 58. Creatinine of 3.0, potassium of 5.6, bicarbonate of 13. Lactate of 10.2. BNP of 35,000. Troponin of 560. Procalcitonin of 0.45, AST of 2562, ALT of 2035, alkaline phosphatase of 161, albumin of 4.3. Procalcitonin 0.45. UA was negative for leukocyte esterase. SARS-COVID negative. Influenza screen negative. Hepatitis profile negative. The patient underwent chest x-ray, which showed no acute cardiopulmonary process. CT head showed moderate cerebral volume loss, moderate chronic small vessel ischemic disease, no acute intracranial process. CT of the chest, abdomen and pelvis revealed cardiomegaly, large amount of stool noted at the distal colon, correlate for constipation. The patient was started on Zosyn. Blood culture, urine culture are pending at this time. Cardiology, Nephrology, Pulmonary and GI team have been consulted. ID consultation has been requested for antibiotic management. PAST MEDICAL HISTORY: Hypertension, hyperlipidemia, AFib, nonischemic cardiomyopathy, diabetes, cataract removal, DJD and CHF. FAMILY HISTORY: As per HPI. REVIEW OF SYSTEMS: Unable to obtain. CURRENT MEDICATIONS: Zosyn. Other medications reviewed in medication list. ALLERGIES: No known drug allergies. SOCIAL HISTORY: No alcohol. Lives alone. PHYSICAL EXAMINATION: VITAL SIGNS: Temperature 99.2, pulse 87, respirations 16, blood pressure 104/66, oxygen saturation 100% on 2 liters O2 by nasal cannula. GENERAL: Chronically ill-appearing male, somewhat confused. Speech is garbled, wearing mittens on O2 by nasal cannula. HEENT: Normocephalic, atraumatic. Anicteric. Pupils equal, reactive. Oral mucosa moist, few teeth. NECK: Supple. LUNGS: Decreased breath sounds at the bases. No rhonchi. HEART: S1, S2, irregular, systolic murmur. ABDOMEN: Soft, mildly distended, mild discomfort on deep palpation. No rebound or guarding. EXTREMITIES: Bilateral lower extremity edema with warmth. Right third toe has hammertoe with small ulceration. DERMATOLOGIC: Warm, dry, no generalized rash. NEUROLOGIC: Confused, garbled speech. PSYCHIATRIC: Unable to assess, confused. MUSCULOSKELETAL: DJD. LABORATORY DATA: WBC 12.8-16.2, hemoglobin 12.5, hematocrit 37.5, platelets 46. Sodium 143, potassium 5.6, chloride 103, bicarbonate 13, BUN 106, creatinine 3.0, glucose 446. Lactate 4.8 from 10.2, total bilirubin 3.2, AST 2562, ALT 2035, alkaline phosphatase 161, albumin 4.3. UA, 5-10 wbc's, leukocyte esterase negative, acetone negative. Influenza screen negative. SARS-COVID negative. Hepatitis profile negative. DIAGNOSTIC: CT abdomen, chest and pelvis shows cardiomegaly, large amount of stool in the distal colon, correlate for constipation. Head CT as per above. Chest x-ray, no acute pulmonary process. MICRO: 1. Blood culture pending. 2. Urine culture pending. IMPRESSION: 1. Sepsis, likely cardiac with multiorgan failure. 2. Non-STEMI with an atrial fibrillation with rapid ventricular response. 3. Acute kidney injury. 4. Thrombocytopenia, coagulopathy, elevated liver functions, latter likely from sepsis. 5. History of nonischemic cardiomyopathy Takotsubo. 6. Acute hypoxic respiratory failure. 7. Leukocytosis and lactic acidosis. 8. Leg swelling with possible secondary cellulitis. 9. Encephalopathy, likely metabolic.CThead as above RECOMMENDATIONS: 1. Continue Zosyn.Start Zyvox, would like to avoid iv vanc due to SUNNY,Dapto due to high CPK 2. Monitor labs and cultures. 3. Continue supportive care.Maintain aspiration precaution. 4. Follow up Doppler ultrasound and 2D echo. . Critically ill. Thank you for allowing me to participate in this patient's care. If you have any questions, do not hesitate to contact me. D/W LATHA NORTON/ANDRAE DR: CIERRA/curtis TID: [id number] MTDD
[2021-06-22] MEDS ORDERED: DAPTOmycin (GENERIC) IVPB 410 MG in IV NORMAL SALINE 50ML 50 ML IV SCH (16:00)
--- NOTE | 2021-06-22 16:26 | RAD ---
Bilateral lower extremity venous duplex study 06/22/2021 2:21 PM Clinical History: Bilateral lower extremity edema Technique: Using a combination of real time ultrasound imaging and color-flow and pulse Doppler imagi ng techniques along with graded compression and augmentation, duplex evaluation of the deep venous sy stem of the both lower extremities was performed. Multiple images were obtained. Findings: There is no sonographic evidence of deep venous thrombosis involving the visualized deep ve nous structures of either lower extremity. Small left popliteal fossa cyst noted. Impression: No evidence of deep venous thrombosis involving either lower extremity Electronically signed by: Dominik Vazquez MD (06/22/2021 4:23 PM) [id number]
--- NOTE | 2021-06-22 17:39 | RAD ---
Exam Date: 06/22/2021 2:22 PM US ABDOMEN COMPLETE Indication: Reason: elevated LFTs, ?upper abd pain / Spl. Instructions: / History: . TECHNIQUE: Multiple longitudinal and transverse sonographic images of the abdomen are submitted for interpretation. FINDINGS: The liver is normal in size and echogenicity. The portal vein is patent with hepatopetal flow. No focal intrahepatic abnormality is seen. The gallbladder is normal, without gallstones, gallbladder wall thickening or pericholecystic fluid. There is no biliary ductal dilatation, with the common bile duct measuring 5 mm. The spleen is normal in size and echogenicity. Atherosclerotic changes are seen in the distal abdomi nal aorta with prominent mural thrombus. There is aneurysmal dilatation of the distal abdominal aort a up to 3.1 cm in diameter. The visualized inferior vena cava and pancreas are within normal limits. There is no upper abdominal ascites. There is severe right hydronephrosis. The right kidney measu res 12.1 cm and the left kidney measures 10.5 cm. Urinary bladder is suboptimally evaluated with Felton catheter in place, though there appears to be ci rcumferential bladder wall thickening up to 10 mm. 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 Severe hydronephrosis. Circumferential bladder wall thickening could be in part related to underdistention, though bladder p athology is not excluded. Correlate clinically. Electronically signed by: Kevin Clement MD (06/22/2021 5:36 PM) [facility]
--- NOTE | 2021-06-22 18:40 | CONS ---
DATE OF CONSULTATION: 06/22/2021 ATTENDING PHYSICIAN: Hilton Montelongo DO CONSULTING PHYSICIAN: Maureen Darby MD REASON FOR CONSULTATION: The patient is seen in pulmonary consultation/critical care for respiratory distress, possible sepsis. HISTORY OF PRESENT ILLNESS: The patient is an 89-year-old who is unable to provide any significant history. He presented to the Emergency Room yesterday with a history of hypertension, hyperlipidemia, paroxysmal AFib, at home Cardizem and apixaban. There was also possible history of heart failure. He apparently lives at home with family. He arrived by EMS for evaluation of progressive generalized weakness, lethargy over the last two days. There was also some evidence of shortness of breath. Upon arrival, he had saturations of 80% on room air, and was placed on 4 liters. I was asked to see him in consultation for hypoxemia, possible sepsis. Once again, I am unable to obtain much history from the patient himself. He has been seen by Infectious Disease Service and started on Zosyn. He currently is also being treated for paroxysmal AFib, he is on IV Cardizem. There is evidence of non-ST segment elevation [place]. He also has other organ failures including thrombocytopenia, cardiomyopathy, lactic acidosis and encephalopathy. PAST MEDICAL HISTORY: Remarkable for hypertension, hyperlipidemia, nonischemic cardiomyopathy, diabetes, cataracts, degenerative joint disease, chronic heart failure. FAMILY HISTORY: Unknown. REVIEW OF SYSTEMS: Unobtainable secondary to patient's condition. CURRENT MEDICATIONS: List was reviewed. ALLERGIES: No known drug allergies. SOCIAL HISTORY: He apparently lives by himself. No history of alcoholism or tobacco in the chart. PHYSICAL EXAMINATION: VITAL SIGNS: Stable. Initially, he was hypoxic at 80%. He is currently doing better. He is still on 2 liters of oxygen supplementation. NECK: Jugular venous distention was not elevated. No lymphadenopathy. CHEST: Full expansion. LUNGS: Scattered rhonchi. CARDIOVASCULAR: Regular rate and rhythm with S1, S2. No S3. ABDOMEN: Soft, nontender. EXTREMITIES: No clubbing, cyanosis or edema. LABORATORY DATA: White count was elevated. Hemoglobin and hematocrit were noted. Arterial blood gas initially pH of 7.40, pCO2 of 18, pO2 of 182 at 32 percent FiO2. Coagulopathy was noted. Electrolytes deranged. BUN was elevated. Creatinine was elevated. Lactic acid level was elevated. Liver chemistries were markedly elevated. Troponin was markedly elevated. IMPRESSION: 1. Acute hypoxemic respiratory failure, multifactorial. 2. Multiorgan failure/sepsis. 3. Cardiomyopathy. 4. Non-ST segment elevation myocardial infarction. 5. Thrombocytopenia. 6. Lactic acidosis. 7. Acute on chronic renal failure. 8. Liver failure. 9. Metabolic and toxic encephalopathy. PLAN: 1. Continue current support with oxygen supplementation. 2. Empiric antibiotics. 3. Follow Cardiology's input. 4. Nephrology has been consulted. 5. Antibiotics per Infectious Disease. 6. Noted the patient is do not resuscitate and do not intubate. I do appreciate the privilege in sharing in the patient's care. Total cumulative critical care time of 45 minutes. SHAZIA/MARYAM DR: Robbie TID: [id number]
[2021-06-23] VITALS (20 sets, daily range): BP systolic 87–119; BP diastolic 52–81
[2021-06-23] MEDS: PIPERACILLIN/TAZOBACTAM 2.25 GM in IV NORMAL SALINE 50ML 50 ML IV SCH ×4 (00:12→18:18)
[2021-06-23] MEDS: METOPROLOL IV PUSH 5 MG/5 ML VIAL. IVP SCH ×4 (00:13→18:18)
[2021-06-23 06:08] LABS: ALBUMIN 2.7 g/dL (3.4-5.0); DIRECT BILIRUBIN 1.1 mg/dL (0.0-0.2); TOTAL BILIRUBIN 2.1 mg/dL (0.2-1.0)
--- NOTE | 2021-06-23 08:09 | PDOC ---
PULMONARY PROGRESS NOTES DATE: 06/23/21 TIME: 08:09 Subjective Patient remains confused currently off of oxygen blood pressure is better, off of pressors Vitals Vital Signs Date Time Temp Pulse Resp B/P (MAP) Pulse Ox O2 Delivery O2 Flow Rate FiO2 06/23/21 07:00 110 18 110/69 100 Room Air 06/23/21 04:00 98.0 98.0 06/22/21 11:00 2.0 ROS: No Nausea, No Chest Pain, No Abdominal Pain, No Increase Cough General: Confused Lungs: Wheezing, Crackles Cardiovascular: S1, S2 Abdomen: Soft Neuro Exam: Alert Extremities: No Edema Skin: Warm Labs Laboratory Tests Test 06/21/21 19:11 06/21/21 19:20 06/21/21 19:44 06/21/21 20:28 White Blood Count 16.2 x10^3/uL (4.0-11.0) Red Blood Count 4.43 x10^6/uL (4.30-5.70) Hemoglobin 14.3 g/dL (13.0-17.5) Hematocrit 43.9 % (39.0-53.0) Mean Corpuscular Volume 99 fL (79-100) Mean Corpuscular Hemoglobin 32 pg (25-35) Mean Corpuscular Hemoglobin Concent 33 g/dL (31-37) Red Cell Distribution Width 15.1 % (11.5-14.5) Platelet Count 58 x10^3/uL (140-400) Neutrophils (%) (Auto) 93 % (31-73) Lymphocytes (%) (Auto) 2 % (24-48) Monocytes (%) (Auto) 5 % (0-9) Eosinophils (%) (Auto) 0 % (0-3) Basophils (%) (Auto) 0 % (0-3) Neutrophils # (Auto) 15.0 x10^3/uL (1.8-7.7) Lymphocytes # (Auto) 0.3 x10^3/uL (1.0-4.8) Monocytes # (Auto) 0.8 x10^3/uL (0.0-1.1) Eosinophils # (Auto) 0.0 x10^3/uL (0.0-0.7) Basophils # (Auto) 0.1 x10^3/uL (0.0-0.2) Segmented Neutrophils % 93 % (35-66) Band Neutrophils % 4 % (0-9) Lymphocytes % 2 % (24-48) Monocytes % 1 % (0-10) Platelet Estimate Decreased (ADEQUATE) [place] Cells Present Prothrombin Time 33.4 SEC (11.7-14.0) Prothromb Time International Ratio 3.4 (0.8-1.1) Activated Partial Thromboplast Time 38 SEC (24-38) Sodium Level 143 mmol/L (136-145) Potassium Level 5.6 mmol/L (3.5-5.1) Chloride Level 103 mmol/L (98-107) Carbon Dioxide Level 13 mmol/L (21-32) Anion Gap 27 (6-14) Blood Urea Nitrogen 106 mg/dL (8-26) Creatinine 3.0 mg/dL (0.7-1.3) Estimated GFR (Cockcroft-Gault) 20.1 BUN/Creatinine Ratio 35 (6-20) Glucose Level 446 mg/dL (70-99) Lactic Acid Level 10.2 mmol/L (0.4-2.0) Calcium Level 10.0 mg/dL (8.5-10.1) Total Bilirubin 3.2 mg/dL (0.2-1.0) Aspartate Amino Transf (AST/SGOT) 2562 U/L (15-37) Alanine Aminotransferase (ALT/SGPT) 2035 U/L (16-63) Alkaline Phosphatase 161 U/L (46-116) Troponin I High Sensitivity 560 ng/L (4-75) FB-Lzc-C-Type Natriuretic Peptide > 39624 pg/mL (0-449) Total Protein 7.2 g/dL (6.4-8.2) Albumin 4.3 g/dL (3.4-5.0) Albumin/Globulin Ratio 1.5 (1.0-1.7) Procalcitonin 0.45 ng/mL (0.00-0.10) Thyroid Stimulating Hormone (TSH) 2.367 uIU/mL (0.358-3.74) Acetone Level Neg (NEG) Urine Collection Type Unknown Urine Color (Auto) Yellow Urine Turbidity Clear Urine pH (Auto) 5.0 (<5.0-8.0) Urine Specific [place] 1.027 (1.000-1.030) Urine Protein (Auto) 30 mg/dL (Negative) Urine Glucose (Auto)(UA) >=1000 mg/dL (Negative) Urine Ketones (Auto) Negative mg/dL (Negative) Urine Blood (Auto) Negative (Negative) Urine Nitrite Negative (Negative) Urine Bilirubin (Auto) Negative (Negative) Urine Urobilinogen (Auto) Normal mg/dL (Normal) Urine Leukocyte Esterase (Auto) Negative (Negative) Urine RBC 0 /HPF (0-2) Urine WBC 5-10 /HPF (0-4) Urine Squamous Epithelial Cells Few /LPF Urine Bacteria 0 /HPF (0-FEW) Urine Hyaline Casts Moderate /HPF Urine Mucus Slight /LPF O2 Saturation 99 % (92-99) Arterial Blood pH 7.40 (7.35-7.45) Arterial Blood pCO2 at Patient Temp 18 mmHg (35-46) Arterial Blood pO2 at Patient Temp 182 mmHg (65-108) Arterial Blood HCO3 11 mmol/L (21-28) Arterial Blood Base Excess -11 mmol/L (-3-3) FiO2 32 Influenza Type A Antigen Negative (NEGATIVE) Influenza Type B Antigen Negative (NEGATIVE) SARS-CoV-2 Antigen (Rapid) Negative (NEGATIVE) Test 06/21/21 22:33 06/22/21 04:00 06/22/21 17:23 06/23/21 04:45 Lactic Acid Level 4.8 mmol/L (0.4-2.0) Troponin I High Sensitivity 644 ng/L (4-75) 1011 ng/L (4-75) White Blood Count 12.8 x10^3/uL (4.0-11.0) Red Blood Count 3.89 x10^6/uL (4.30-5.70) Hemoglobin 12.5 g/dL (13.0-17.5) Hematocrit 37.5 % (39.0-53.0) Mean Corpuscular Volume 96 fL (79-100) Mean Corpuscular Hemoglobin 32 pg (25-35) Mean Corpuscular Hemoglobin Concent 33 g/dL (31-37) Red Cell Distribution Width 14.5 % (11.5-14.5) Platelet Count 46 x10^3/uL (140-400) Neutrophils (%) (Auto) 93 % (31-73) Lymphocytes (%) (Auto) 3 % (24-48) Monocytes (%) (Auto) 4 % (0-9) Eosinophils (%) (Auto) 0 % (0-3) Basophils (%) (Auto) 0 % (0-3) Neutrophils # (Auto) 11.9 x10^3/uL (1.8-7.7) Lymphocytes # (Auto) 0.4 x10^3/uL (1.0-4.8) Monocytes # (Auto) 0.6 x10^3/uL (0.0-1.1) Eosinophils # (Auto) 0.0 x10^3/uL (0.0-0.7) Basophils # (Auto) 0.0 x10^3/uL (0.0-0.2) Prothrombin Time 31.4 SEC (11.7-14.0) Prothromb Time International Ratio 3.1 (0.8-1.1) Heparin Anti-Xa Act, Unfractionated 0.21 IU/mL (0.30-0.70) Sodium Level 147 mmol/L (136-145) Potassium Level 4.1 mmol/L (3.5-5.1) Chloride Level 110 mmol/L (98-107) Carbon Dioxide Level 19 mmol/L (21-32) Anion Gap 18 (6-14) Blood Urea Nitrogen 105 mg/dL (8-26) Creatinine 2.7 mg/dL (0.7-1.3) Estimated GFR (Cockcroft-Gault) 22.7 BUN/Creatinine Ratio 39 (6-20) Glucose Level 308 mg/dL (70-99) Calcium Level 8.6 mg/dL (8.5-10.1) Total Bilirubin 2.2 mg/dL (0.2-1.0) 2.1 mg/dL (0.2-1.0) Aspartate Amino Transf (AST/SGOT) 2166 U/L (15-37) 499 U/L (15-37) Alanine Aminotransferase (ALT/SGPT) 1618 U/L (16-63) 1158 U/L (16-63) Alkaline Phosphatase 117 U/L (46-116) 111 U/L (46-116) Creatine Kinase 323 U/L (39-308) Total Protein 5.4 g/dL (6.4-8.2) 5.0 g/dL (6.4-8.2) Albumin 3.3 g/dL (3.4-5.0) 2.7 g/dL (3.4-5.0) Albumin/Globulin Ratio 1.6 (1.0-1.7) Hepatitis A IgM Antibody Nonreactive (Nonreactive) Hepatitis B Surface Antigen Nonreactive (Nonreactive) Hepatitis B Core IgM Antibody Nonreactive (Nonreactive) Hepatitis C IgG Antibody Nonreactive (Nonreactive) Glucose (Fingerstick) 336 mg/dL (70-99) Direct Bilirubin 1.1 mg/dL (0.0-0.2) Laboratory Tests Test 06/22/21 17:23 06/23/21 04:45 Glucose (Fingerstick) 336 mg/dL (70-99) Total Bilirubin 2.1 mg/dL (0.2-1.0) Direct Bilirubin 1.1 mg/dL (0.0-0.2) Aspartate Amino Transf (AST/SGOT) 499 U/L (15-37) Alanine Aminotransferase (ALT/SGPT) 1158 U/L (16-63) Alkaline Phosphatase 111 U/L (46-116) Total Protein 5.0 g/dL (6.4-8.2) Albumin 2.7 g/dL (3.4-5.0) Medications Active Scripts Medications Dose Route/Sig Max Daily Dose Days Date Category Magnesium Chloride 70 Mg Tablet.dr 70 Mg PO 06/21/21 Reported Hydrochlorothiazide Tablet (Hydrochlorothiazide) 25 Mg Tablet 25 Mg PO DAILY 06/21/21 Reported Lasix (Furosemide) 20 Mg Tablet 20 Mg PO BID 06/21/21 Reported Eliquis (Apixaban) 5 Mg Tablet 5 Mg PO 06/21/21 Reported Metformin Hcl 1,000 Mg Tablet 1,000 Mg PO BIDWMEALS 06/21/21 Reported Aspirin 81 Mg Tab.chew 1 Tab PO DAILY 06/21/21 Reported Cardizem Cd (Diltiazem Hcl) 180 Mg Cap.er.24h 1 Cap PO DAILY 06/21/21 Reported Cardizem Tablet (Diltiazem Hcl) 60 Mg Tablet 60 Mg PO QID 06/21/21 Reported Flomax (Tamsulosin Hcl) 0.4 Mg Cap.er.24h 1 Cap PO DAILY 06/21/21 Reported Simvastatin 80 Mg Tablet 1 Tab PO QHS 30 06/21/21 Reported Timolol Maleate 5 Ml Drops 1 Drop OD BID 06/21/21 Reported Xalatan (Latanoprost) 2.5 Ml Drops 1 Drop OU QHS 06/21/21 Reported Impression . IMPRESSION: 1. Acute hypoxemic respiratory failure, multifactorial. 2. Multiorgan failure/sepsis. 3. Cardiomyopathy. 4. Non-ST segment elevation myocardial infarction. 5. Thrombocytopenia. 6. Lactic acidosis. 7. Acute on chronic renal failure. 8. Liver failure. 9. Metabolic and toxic encephalopathy. Plan . Updated 06/23 Continue oxygen to maintain sats above 92% Antibiotics per ID Follow cardiology input Monitor BUN and creatinine NORMA HARRIS MD Jun 23, 2021 08:09
--- NOTE | 2021-06-23 09:13 | CARD ---
MR#: [id number] Date of Study: 06/22/2021 Ordering Physician: ZE SOLIMAN, Referring Physician: ZE SOLIMAN Tech: Nick Mccann [facility] APPROVED REPORT EXAM: Two-dimensional and M-mode echocardiogram with Doppler and color Doppler. Other Information Quality : GoodHR: 118bpm Rhythm : Atrial Fibrillation INDICATION Atrial Fibrillation Non STEMI RISK FACTORS Hypertension Hyperlipidemia 2D DIMENSIONS Left Atrium(2D)5.3 (1.6-4.0cm)IVSd1.1 (0.7-1.1cm) Aortic Root(2D)4.0 (2.0-3.7cm)LVDd6.9 (3.9-5.9cm) LVOT Diameter2.2 (1.8-2.4cm)PWd1.2 (0.7-1.1cm) LA [id number] (18-58mL)LVDs6.3 (2.5-4.0cm) FS (%) 8.3 %SV43.5 ml LVEF(%)17.7 (>50%) Aortic Valve AoV Peak Alfredo.151.7cm/sAoV VTI27.2cm AO Peak GR.9.2mmHgLVOT Peak Alfredo.61.6cm/s AO Mean GR.5mmHgAVA (VMAX)1.58cm2 AI P 1/2 [id number] Mitral Valve MV E Peak Gr.8mmHgMV E Mean Gr.3mmHg Pulmonary Valve PV Peak Uqgewzwg92.4cm/s Tricuspid Valve TR P. [id number]/sTR Peak Gr.41mmHg LEFT VENTRICLE The Left Ventricle is moderately dilated. There is normal left ventricular wall thickness. The left v entricular systolic function is severely impaired. The Ejection Fraction is 20-25%. There is global h ypokinesis of the left ventricle. Diastolic function not assessed due to atrial fibrillation. No left ventricle thrombus noted on this study. There is no ventricular septal defect visualized. There is n o left ventricular aneurysm. There is no mass noted in the left ventricle. RIGHT VENTRICLE The right ventricle is borderline dilated. There is normal right ventricular wall thickness. Systolic function is borderline reduced. ATRIA The left atrium is mildly dilated. The right atrium is moderately dilated. The interatrial septum is intact with no evidence for an atrial septal defect or patent foramen ovale as noted on 2-D or Dopple r imaging. AORTIC VALVE The aortic valve is moderately sclerotic. The aortic valve is trileaflet. Doppler and Color Flow reve aled mild to moderate aortic regurgitation. There is no significant aortic valvular stenosis. There i s no aortic valvular vegetation. MITRAL VALVE The mitral valve is moderately thickened but opens well. There is no evidence of mitral valve prolaps e. There is no mitral valve stenosis. Doppler and Color-flow revealed moderate mitral regurgitation. TRICUSPID VALVE The tricuspid valve leaflets are thickened , but open well. Doppler and Color Flow revealed moderate tricuspid regurgitation. There is no tricuspid valve prolapse or vegetation. There is no tricuspid va lve stenosis. PULMONIC VALVE The pulmonary valve is normal in structure and function. There is mild pulmonic regurgitation. There is no pulmonic valvular stenosis. GREAT VESSELS The aortic root is normal in size. The ascending aorta is normal in size. The pulmonary artery is nor mal. The IVC is dilated with blunted inspiratory response. PERICARDIAL EFFUSION There is no pleural effusion. There is no evidence of significant pericardial effusion. Critical Notification Critical Value: No <Conclusion> The left ventricular systolic function is severely impaired. The Ejection Fraction is 20-25%. Mild to moderate aortic regurgitation. Moderate mitral regurgitation. Moderate tricuspid regurgitation. There is no evidence of significant pericardial effusion. Signed by : Iam Khalil, Electronically Approved : 06/23/2021 09:12:45
[2021-06-23] MEDS ORDERED: IV DEXTROSE 5% 250 ML BAG. IV PRN (09:15)
[2021-06-23] MEDS ORDERED: DEXTROSE 50% 25 GM / 50ML DISP.SYRIN. IV PRN (09:15)
--- NOTE | 2021-06-23 09:18 | PDOC ---
DATE OF SERVICE DATE: 06/23/21 TIME: 09:16 SUBJECTIVE ROS Stable , OBJECTIVE Vital Signs Vital Signs Date Time Temp Pulse Resp B/P (MAP) Pulse Ox O2 Delivery O2 Flow Rate FiO2 06/23/21 07:00 110 18 110/69 100 Room Air 06/23/21 04:00 98.0 98.0 06/22/21 11:00 2.0 I & 0 Intake and Output 06/23/21 07:00 Intake Total 4951.27 ml Output Total 2545 ml Balance 2406.27 ml IV Total 4951.27 ml Output Urine Total 2545 ml # Bowel Movements 2 PHYSICAL EXAM Physical Exam General: No acute distress HEENT: Atraumatic, OM moist neck Supple Lungs: diminished bases, Non labored Heart: AFIB, 2/6 systolic murmur Extremities: (Bilateral LE pitting edema 3-4+ Abd Soft, NT , BS + Skin: No rashes Neuro: Normal speech, Sensation intact Psych/Mental Status: confused)\ No CVA or SP tenderness . DIAGNOSIS/ASSESSMENT Assessment & Plan SUNNY - Cardiorenal/ATN ; UA unremarkable , CT abdomen- Kidneys and bladder Unremarkable . Non Oliguric . Recd Vanc and Lasix IV in the ER. Renal function improving Supportive care, Maintain fluid balance, avoid nephrotoxins. 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 COMMENT/RELEVANT DATA Meds Current Medications Medications (Trade) Dose Ordered Sig/Susy Start Time Stop Time Status Last Admin Dose Admin Acetaminophen (Tylenol) 650 mg PRN Q4HRS PRN 06/21/21 22:15 06/22/21 22:14 DC Aspirin (Aspirin Chewable) 324 mg 1X ONCE 06/21/21 20:30 06/21/21 20:31 DC 06/21/21 20:40 324 MG Daptomycin 410 mg/ Sodium Chloride 50 ml @ 100 mls/hr Q48H 06/22/21 16:00 06/22/21 15:34 100 MLS/HR Dextrose (Dextrose 50%-Water Syringe) 12.5 gm PRN Q15MIN PRN 06/23/21 09:15 UNV Dextrose (Iv Dextrose 5%) 250 ml PRN Q15MIN PRN 06/23/21 09:15 UNV Diltiazem HCl (Cardizem Iv Push) 15 mg 1X ONCE 06/21/21 19:30 06/21/21 19:53 DC 06/21/21 19:58 15 MG Diltiazem HCl 125 mg/Dextrose 125 ml @ 5 mls/hr CONT PRN PRN 06/21/21 22:15 06/22/21 10:10 DC 06/21/21 22:32 5 MLS/HR Diltiazem HCl 125 mg/Sodium Chloride 125 ml @ 5 mls/hr CONT PRN 06/21/21 22:15 06/21/21 22:10 DC Fentanyl Citrate (Fentanyl 2ml Vial) 25 mcg PRN Q2HR PRN 06/22/21 18:30 Furosemide (Lasix) 40 mg 1X ONCE 06/21/21 20:30 06/21/21 20:31 DC 06/21/21 20:39 40 MG Heparin Sodium (Porcine) (Heparin Sodium) 25 UNITS / KG PRN Q6HRS PRN 06/22/21 08:45 Heparin Sodium/ Dextrose 250 ml @ 8.16 mls/hr CONT PRN 06/22/21 08:45 Info (Anti-Coagulation Monitoring By Pharmacy) 1 each PRN DAILY PRN 06/21/21 21:15 06/22/21 08:42 1 EACH Insulin Human Lispro (HumaLOG) 0-7 UNITS TIDWMEALS 06/23/21 12:00 UNV Linezolid/Dextrose 300 ml @ 300 mls/hr Q12HR 06/22/21 14:00 06/22/21 23:16 300 MLS/HR Metoprolol Tartrate (Lopressor Vial) 5 mg Q6HRS 06/22/21 12:00 06/23/21 06:04 5 MG Ondansetron HCl (Zofran) 4 mg PRN Q8HRS PRN 06/21/21 22:15 06/22/21 22:14 DC Piperacillin Sod/ Tazobactam Sod (Zosyn Per Pharmacy) 1 each PRN DAILY PRN 06/21/21 22:45 Piperacillin Sod/ Tazobactam Sod 2.25 gm/Sodium Chloride 50 ml @ 100 mls/hr Q6HRS 06/22/21 06:00 06/23/21 06:02 100 MLS/HR Piperacillin Sod/ Tazobactam Sod 4.5 gm/Dextrose 100 ml @ 200 mls/hr 1X ONCE 06/21/21 20:00 06/21/21 20:29 DC 06/21/21 20:23 200 MLS/HR Piperacillin Sod/ Tazobactam Sod 4.5 gm/Sodium Chloride 100 ml @ 200 mls/hr 1X ONCE 06/21/21 20:00 06/21/21 19:55 DC Sodium Chloride 1,000 ml @ 85 mls/hr [id number] 06/21/21 22:15 06/22/21 22:14 DC 06/22/21 20:36 85 MLS/HR Vancomycin HCl 1.5 gm/Sodium Chloride 500 ml @ 250 mls/hr 1X ONCE 06/21/21 21:00 06/21/21 22:59 DC 06/21/21 20:32 250 MLS/HR Lab Laboratory Tests Test 06/22/21 17:23 06/23/21 04:45 06/23/21 08:58 Glucose (Fingerstick) 336 mg/dL (70-99) 337 mg/dL (70-99) Total Bilirubin 2.1 mg/dL (0.2-1.0) Direct Bilirubin 1.1 mg/dL (0.0-0.2) Aspartate Amino Transf (AST/SGOT) 499 U/L (15-37) Alanine Aminotransferase (ALT/SGPT) 1158 U/L (16-63) Alkaline Phosphatase 111 U/L (46-116) Total Protein 5.0 g/dL (6.4-8.2) Albumin 2.7 g/dL (3.4-5.0) Results All relevant outside records, renal labs, imaging studies, telemetry/EKG's were reviewed. Justicifation of Admission Dx: Justifications for Admission: Justification of Admission Dx: Yes Acute Renal Failure: 3-Fold Rise in Serum Crea ALYSON DORAN MD Jun 23, 2021 09:18
[2021-06-23 09:25] LABS: CREATININE 1.9 mg/dL (0.7-1.3)
[2021-06-23] MEDS: INSULIN LISPRO 300 UNITS/3 ML VIAL. SQ SCH ×2 (09:27→18:15)
[2021-06-23 09:28] LABS: POTASSIUM 2.9 mmol/L (3.5-5.1)
--- NOTE | 2021-06-23 10:34 | PDOC ---
Date of Service: DATE: 06/23/21 TIME: : Subjective: Subjective: "DON'T HURT ME!" Objective: Objective: D/w nurse - confused, also unable to swallow a pill yesterday. Vital Signs: Vital Signs Date Time Temp Pulse Resp B/P (MAP) Pulse Ox O2 Delivery O2 Flow Rate FiO2 06/23/21 09:00 108 18 108/71 88 Room Air 06/23/21 08:00 98.0 98.0 06/22/21 11:00 2.0 Labs: Laboratory Tests Test 06/22/21 17:23 06/23/21 04:45 06/23/21 08:58 Glucose (Fingerstick) 336 mg/dL 337 mg/dL Sodium Level 151 mmol/L Potassium Level 2.9 mmol/L Chloride Level 112 mmol/L Carbon Dioxide Level 19 mmol/L Anion Gap 20 Blood Urea Nitrogen 85 mg/dL Creatinine 1.9 mg/dL Estimated GFR (Cockcroft-Gault) 34.0 Glucose Level 406 mg/dL Calcium Level 8.0 mg/dL Total Bilirubin 2.1 mg/dL Direct Bilirubin 1.1 mg/dL Aspartate Amino Transf (AST/SGOT) 499 U/L Alanine Aminotransferase (ALT/SGPT) 1158 U/L Alkaline Phosphatase 111 U/L Total Protein 5.0 g/dL Albumin 2.7 g/dL CULTURE URINE Final NO GROWTH ON 06/23/21 at 0810 BLOOD CULTURE Preliminary NO GROWTH AFTER 1 DAY Imaging: Abd US 06/22 IMPRESSION: 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 Severe hydronephrosis. Circumferential bladder wall thickening could be in part related to underdistention, though bladder pathology is not excluded. Correlate clinically. Echo <Conclusion> The left ventricular systolic function is severely impaired. The Ejection Fraction is 20-25%. Mild to moderate aortic regurgitation. Moderate mitral regurgitation. Moderate tricuspid regurgitation. There is no evidence of significant pericardial effusion. LE US Impression: No evidence of deep venous thrombosis involving either lower extremity PE: GEN: ill LUNGS: NC, diminished, difficult to hear with pt crying out HEART: irregular ABD: soft, difficult to assess tenderness NEURO/PSYCH: confused, anxious A/P: NSTEMI, A Fib, resp failure, encephalopathy, sepsis SUNNY, hypernatremia, hypokalemia Thrombocytopenia, coagulopathy Elevated LFTs - better - normal liver and GB on US -- US results noted - will ask for urology to see. Observe GI-aleman. Justicifation of Admission Dx: Justifications for Admission: Justification of Admission Dx: Yes EMMA BOLTON Jun 23, 2021 10:34
[2021-06-23 10:36] LABS: HEMATOCRIT 38.7 % (39.0-53.0); HEMOGLOBIN 12.8 g/dL (13.0-17.5); RED BLOOD COUNT 3.96 x10^6/uL (4.30-5.70); RED CELL DISTRIBUTION WIDTH 15.1 % (11.5-14.5); WHITE BLOOD COUNT 10.1 x10^3/uL (4.0-11.0)
--- NOTE | 2021-06-23 10:41 | PDOC ---
[employer] RE[employer] 06/23/21 1041: CARDIO Progress Notes Date and Time Date of Service 06/23/2021 Time of Evaluation 1010 Subjective Subjective: Other (agitated) Vitals Vitals Vital Signs Date Time Temp Pulse Resp B/P (MAP) Pulse Ox O2 Delivery O2 Flow Rate FiO2 06/23/21 09:00 108 18 108/71 88 Room Air 06/23/21 08:00 98.0 98.0 06/22/21 11:00 2.0 Weight Weight [ ] Input and Output Intake and Output Intake and Output 06/23/21 07:00 Intake Total 4951.27 ml Output Total 2545 ml Balance 2406.27 ml IV Total 4951.27 ml Output Urine Total 2545 ml # Bowel Movements 2 Laboratory Labs Laboratory Tests Test 06/22/21 17:23 06/23/21 04:45 06/23/21 08:58 Glucose (Fingerstick) 336 mg/dL (70-99) 337 mg/dL (70-99) Sodium Level 151 mmol/L (136-145) Potassium Level 2.9 mmol/L (3.5-5.1) Chloride Level 112 mmol/L (98-107) Carbon Dioxide Level 19 mmol/L (21-32) Anion Gap 20 (6-14) Blood Urea Nitrogen 85 mg/dL (8-26) Creatinine 1.9 mg/dL (0.7-1.3) Estimated GFR (Cockcroft-Gault) 34.0 Glucose Level 406 mg/dL (70-99) Calcium Level 8.0 mg/dL (8.5-10.1) Total Bilirubin 2.1 mg/dL (0.2-1.0) Direct Bilirubin 1.1 mg/dL (0.0-0.2) Aspartate Amino Transf (AST/SGOT) 499 U/L (15-37) Alanine Aminotransferase (ALT/SGPT) 1158 U/L (16-63) Alkaline Phosphatase 111 U/L (46-116) Total Protein 5.0 g/dL (6.4-8.2) Albumin 2.7 g/dL (3.4-5.0) Microbiology Micro Microbiology 06/21/21 Urine Culture - Final, Complete 06/21/21 Blood Culture - Preliminary, Resulted NO GROWTH AFTER 1 DAY Physical Exam HEENT: Neck Supple W Full Motion Chest: Symmetric LUNGS: Other (diminished bases) Heart: irregularly irregular (AFIB ) Abdomen: Soft N/T Extremities: Other (4+ bilateral LE pitting edema) Neurology: confused (agitated) Assessment Assessment 1. NSTEMI: suspect demand mediated with multiorgan failure and AFIB RVR 2. AFIB RVR: paroxysmal by hx 3. LBBB: no prior EKG for comparison 4. Severe SUNNY with hypernatremia: nephrology following 5. Coagulopathy: INR at 3.1 6. Thrombocytopenia 7. Severe transaminitis: improving 8. Fall a week ago: unclear details 9. 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 Acute hypoxic respiratory failure 11. Sepsis: per PCP 12. Leg swelling: due to CHF, No DVT per doppler 13. Metabolic encephalopathy 14. 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 15. Cardiohepatorenal syndrome 16. Acute on chronic systolic CHF: no SOA currently 17. cachexia 18. DM2?: uncontrolled BG Recommendations 1. Recheck INR and CBC. Hold any heparin. Hold ASA if INR remains high 2. Titrate O2 3. Continue IV lopressor. Correct K and check Mg. May give PRN digoxin sparingly once lyte corrected. Ideally would need inotropic agent will consider once HR is better controlled. 4. Obtain cardiac records at [facility] [address] 5. Caution with QT prolonging agents: QTc 515 6. Poor barrel filler prognosis. Supportive care 7. Future ischemic workup as an outpt pending goals of care. Will start and optimize HF regimen once extracardiac issues are better and BP is consistently adequate. Lasix PRN for now Justicifation of Admission Dx: Justifications for Admission: Justification of Admission Dx: Yes MARQUEZ LIM MD 06/23/211926: CARDIO Progress Notes Plan Plan The patient was seen and interviewed as well as examined at the bedside. The brandyn orellana was reviewed. The case was discussed. Agree with the plan of care. [employer] Jun 23, 2021 10:41 MARQUEZ LIM MD Jun 23, 2021 19:27
[2021-06-23] MEDS: POTASSIUM CHLORIDE 10MEQ 100 ML IV SCH ×8 (10:44→18:03)
--- NOTE | 2021-06-23 12:02 | PDOC ---
[employer] PROGRESS NOTE Date of Service DOS: DATE: 06/23/21 TIME: 12:01 Chief Complaint Chief Complaint Possible sepsis with multiorgan failure Atrial fibrillation with rapid ventricular response, renal failure, azotemia, hyperkalemia, transaminitis, elevated troponin, leukocytosis. History of the following; Hypertension, hyperlipidemia, chronic anticoagulation, possible CHF, AFib. History of Present Illness History of Present Illness 06/23/2021 Patient seen and examined in ICU Discussed with RN Chart reviewed He is in mitts and pleasantly confused Potassium low at 2.9 we ordered 80 Sugars running a little high we ordered a sliding scale insulin Discussed with RN Discussed with case management Chart reviewed 06/22/2021 Patient seen and examined in the ICU He is resting with no apparent distress He is on IV Zosyn and IV Cardizem drip Heparin is hanging but we just turned it off this morning Discussed with RN Discussed with case management Chart reviewed He remains critically ill Vitals/I&O Vitals/I&O: Vital Signs Date Time Temp Pulse Resp B/P (MAP) Pulse Ox O2 Delivery O2 Flow Rate FiO2 06/23/21 09:00 108 18 108/71 88 Room Air 06/23/21 08:00 98.0 98.0 06/22/21 11:00 2.0 I & O 06/22/21 06/22/21 06/23/21 15:00 23:00 07:00 Intake Total 1862 ml 3089.27 ml Output Total 895 ml 835 ml 815 ml Balance -895 ml 1027 ml 2274.27 ml Physical Exam General: mild distress, Other (Nonverbal) Heart: Other (AFIB, 2/6 systolic murmur to LLS border) Lungs: Wheezing, Crackles Abdomen: Normal bowel sounds Extremities: Other (Bilateral LE pitting edema 4+) Skin: Other (He has chronic venous stasis and thin skin) Labs Labs: Laboratory Tests Test 06/22/21 17:23 06/23/21 04:40 06/23/21 04:45 06/23/21 08:58 Glucose (Fingerstick) 336 mg/dL (70-99) 337 mg/dL (70-99) White Blood Count 10.1 x10^3/uL (4.0-11.0) Red Blood Count 3.96 x10^6/uL (4.30-5.70) Hemoglobin 12.8 g/dL (13.0-17.5) Hematocrit 38.7 % (39.0-53.0) Mean Corpuscular Volume 98 fL (79-100) Mean Corpuscular Hemoglobin 32 pg (25-35) Mean Corpuscular Hemoglobin Concent 33 g/dL (31-37) Red Cell Distribution Width 15.1 % (11.5-14.5) Platelet Count 48 x10^3/uL (140-400) Sodium Level 151 mmol/L (136-145) Potassium Level 2.9 mmol/L (3.5-5.1) Chloride Level 112 mmol/L (98-107) Carbon Dioxide Level 19 mmol/L (21-32) Anion Gap 20 (6-14) Blood Urea Nitrogen 85 mg/dL (8-26) Creatinine 1.9 mg/dL (0.7-1.3) Estimated GFR (Cockcroft-Gault) 34.0 Glucose Level 406 mg/dL (70-99) Calcium Level 8.0 mg/dL (8.5-10.1) Total Bilirubin 2.1 mg/dL (0.2-1.0) Direct Bilirubin 1.1 mg/dL (0.0-0.2) Aspartate Amino Transf (AST/SGOT) 499 U/L (15-37) Alanine Aminotransferase (ALT/SGPT) 1158 U/L (16-63) Alkaline Phosphatase 111 U/L (46-116) Total Protein 5.0 g/dL (6.4-8.2) Albumin 2.7 g/dL (3.4-5.0) Test 06/23/21 10:53 Magnesium Level 2.2 mg/dL (1.8-2.4) Assessment and Plan Assessmemt and Plan Problems Medical Problems: (1) Acute metabolic encephalopathy Status: Acute (2) Acute urinary retention Status: Acute (3) Atrial fibrillation with rapid ventricular response Status: Acute (4) Cholestasis Status: Acute (5) Lactic acidemia Status: Acute (6) Metabolic acidosis Status: Acute (7) NSTEMI (non-ST elevated myocardial infarction) Status: Acute (8) Shock Status: Acute (9) Transaminasemia Status: Acute (10) Volume overload Status: Acute Possible sepsis with multiorgan failure Hypokalemia Hyperglycemia Metabolic cephalopathy Atrial fibrillation with rapid ventricular response, renal failure, azotemia, hyperkalemia, transaminitis, elevated troponin, leukocytosis. History of the following; Hypertension, hyperlipidemia, chronic anticoagulation, possible CHF, AFib. Plan ICU monitoring Continue the IV Zosyn Mitts for patient safety Sliding-scale insulin Replace potassium Cardizem drip We have multiple consults following including cardiology pulmonary nephrology infectious disease and GI Trend labs Home meds when possible DVT prophylaxis Full code Appreciate subspecialist input Prognosis long-term extremely guarded Comment Review of Relevant I have reviewed the following items scot (where applicable) has been applied. Medications: Current Medications Medications (Trade) Dose Ordered Sig/Susy Route PRN Reason Start Time Stop Time Status Last Admin Dose Admin Linezolid/Dextrose 300 ml @ 300 mls/hr Q12HR IV 06/22/21 14:00 06/23/21 09:19 Daptomycin 410 mg/ Sodium Chloride 50 ml @ 100 mls/hr Q48H IV 06/22/21 16:00 06/22/21 15:34 Insulin Human Lispro (HumaLOG) 0-7 UNITS TIDWMEALS SQ 06/23/21 12:00 06/23/21 09:27 Potassium Chloride/Water 100 ml @ 100 mls/hr Q1H IV 06/23/21 10:00 06/23/21 17:59 06/23/21 11:58 Justifications for Admission Other Justification VANESSA HENAO III DO Jun 23, 2021 12:02
[2021-06-23 12:03] LABS: PROTHROMBIN TIME PATIENT 23.2 SEC (11.7-14.0)
--- NOTE | 2021-06-23 13:23 | PDOC2 ---
UROLOGY CONSULT DOS: DATE: 06/23/21 TIME: 13:16 Reason for Consult: hydronephrosis Chief Complaint SALOME HPI obtained from nursing and chart review as patient very confused. 85 year old male presented to the ER 06/21 with complaint of AMS and rapid heart rate. Noted to be in afib RVR. Patient also identified to be in multisystem organ failure. Creatinine at that time of 3 with a WBC count of 16. Started on cardizem. CT A/P on admission with no significant findings, no obstructive uropathy or hydronephrosis noted. Abd US done 06/22 for elevated LFTs, and severe right sided hydronephrosis noted. Per nursing, patient has baseline dementia and has had difficulty controlling blood sugars and electrolytes. ROS ROS: SALOME due to mental status Current Medications Current Medications Vancomycin HCl 1.5 gm/Sodium Chloride 500 ml @ 250 mls/hr 1X ONCE IV Last administered on 06/21/21at 20:32; Start 06/21/21 at 21:00; Stop 06/21/21 at 22:59; Status DC Piperacillin Sod/ Tazobactam Sod 4.5 gm/Sodium Chloride 100 ml @ 200 mls/hr 1X ONCE IV ; Start 06/21/21 at 20:00; Stop 06/21/21 at 19:55; Status DC Diltiazem HCl (Cardizem Iv Push) 15 mg 1X ONCE IVP Last administered on 06/21/21at 19:58; Start 06/21/21 at 19:30; Stop 06/21/21 at 19:53; Status DC Piperacillin Sod/ Tazobactam Sod 4.5 gm/Dextrose 100 ml @ 200 mls/hr 1X ONCE IV Last administered on 06/21/21at 20:23; Start 06/21/21 at 20:00; Stop 06/21/21 at 20:29; Status DC Insulin Human Lispro (HumaLOG) 10 units 1X ONCE SQ Last administered on 06/21/21 at 20:33; Start 06/21/21 at 20:30; Stop 06/21/21 at 20:31; Status DC Furosemide (Lasix) 40 mg 1X ONCE IVP Last administered on 06/21/21at 20:39; Start 06/21/21 at 20:30; Stop 06/21/21 at 20:31; Status DC Sodium Chloride 250 ml @ 500 mls/hr 1X ONCE IV Last administered on 06/21/21at 20:41; Start 06/21/21 at 20:30; Stop 06/21/21 at 20:59; Status DC Aspirin (Aspirin Chewable) 324 mg 1X ONCE PO Last administered on 06/21/21at 20:40; Start 06/21/21 at 20:30; Stop 06/21/21 at 20:31; Status DC Sodium Chloride 1,000 ml @ 1,000 mls/hr 1X ONCE IV Last administered on 06/21/21at 21:53; Start 06/21/21 at 21:30; Stop 06/21/21 at 22:29; Status DC Heparin Sodium (Porcine) (Heparin Sodium) 3,900 unit 1X ONCE IV Last administered on 06/21/21at 21:51; Start 06/21/21 at 21:00; Stop 06/21/21 at 21:02; Status DC Heparin Sodium/ Dextrose 250 ml @ 7.8 mls/hr CONT PRN IV PER PROTOCOL Last administered on 06/21/21at 21:52; Start 06/21/21 at 21:00; Stop 06/22/21 at 08:38; Status DC Heparin Sodium (Porcine) (Heparin Sodium) 1,650 unit PRN Q6HRS PRN IV FOR UFH LEVEL LESS THAN 0.2; Start 06/21/21 at 21:00; Stop 06/22/21 at 08:39; Status DC Info (Anti-Coagulation Monitoring By Pharmacy) 1 each PRN DAILY PRN MC PER PROTOCOL Last administered on 06/22/21at 08:42; Start 06/21/21 at 21:15 Sodium Chloride 500 ml @ 500 mls/hr 1X ONCE IV Last administered on 06/21/21at 22:00; Start 06/21/21 at 22:00; Stop 06/21/21 at 22:59; Status DC Diltiazem HCl 125 mg/Sodium Chloride 125 ml @ 5 mls/hr CONT PRN IV PER PROTOCOL; Start 06/21/21 at 22:15; Stop 06/21/21 at 22:10; Status DC Ondansetron HCl (Zofran) 4 mg PRN Q8HRS PRN IVP NAUSEA/VOMITING 1ST CHOICE; Start 06/21/21 at 22:15; Stop 06/22/21 at 22:14; Status DC Sodium Chloride 1,000 ml @ 85 mls/hr [id number] IV Last administered on 06/22/21at 20:36; Start 06/21/21 at 22:15; Stop 06/22/21 at 22:14; Status DC Acetaminophen (Tylenol) 650 mg PRN Q4HRS PRN PO FEVER > 100.3'F; Start 06/21/21 at 22:15; Stop 06/22/21 at 22:14; Status DC Diltiazem HCl 125 mg/Dextrose 125 ml @ 5 mls/hr CONT PRN PRN IV PER PROTOCOL Last administered on 06/21/21at 22:32; Start 06/21/21 at 22:15; Stop 06/22/21 at 10:10; Status DC Piperacillin Sod/ Tazobactam Sod (Zosyn Per Pharmacy) 1 each PRN DAILY PRN MC SEE COMMENTS; Start 06/21/21 at 22:45 Piperacillin Sod/ Tazobactam Sod 2.25 gm/Sodium Chloride 50 ml @ 100 mls/hr Q6HRS IV Last administered on 06/23/21at 12:30; Start 06/22/21 at 06:00 Heparin Sodium/ Dextrose 250 ml @ 8.16 mls/hr CONT PRN IV PER PROTOCOL; Start 06/22/21 at 08:45 Heparin Sodium (Porcine) (Heparin Sodium) 25 UNITS / KG PRN Q6HRS PRN IV FOR PTT < 40; Start 06/22/21 at 08:45 Metoprolol Tartrate (Lopressor Vial) 5 mg Q6HRS IVP Last administered on 06/23/21at 12:35; Start 06/22/21 at 12:00 Linezolid/Dextrose 300 ml @ 300 mls/hr Q12HR IV Last administered on 06/23/21at 09:19; Start 06/22/21 at 14:00 Daptomycin 410 mg/ Sodium Chloride 50 ml @ 100 mls/hr Q48H IV Last administered on 06/22/21at 15:34; Start 06/22/21 at 16:00 Fentanyl Citrate (Fentanyl 2ml Vial) 25 mcg PRN Q2HR PRN IVP PAIN; Start 06/22/21 at 18:30 Insulin Human Lispro (HumaLOG) 0-7 UNITS TIDWMEALS SQ Last administered on 06/23/21at 09:27; Start 06/23/21 at 12:00 Dextrose (Dextrose 50%-Water Syringe) 12.5 gm PRN Q15MIN PRN IV SEE COMMENTS; Start 06/23/21 at 09:15 Dextrose (Iv Dextrose 5%) 250 ml PRN Q15MIN PRN IV SEE COMMENTS; Start 06/23/21 at 09:15 Potassium Chloride/Water 100 ml @ 100 mls/hr Q1H IV Last administered on 06/23/21at 12:21; Start 06/23/21 at 10:00; Stop 06/23/21 at 17:59 Active Scripts Active Reported Magnesium Chloride 70 Mg Tablet.dr 70 Mg PO Hydrochlorothiazide Tablet (Hydrochlorothiazide) 25 Mg Tablet 25 Mg PO DAILY Lasix (Furosemide) 20 Mg Tablet 20 Mg PO BID Eliquis (Apixaban) 5 Mg Tablet 5 Mg PO Metformin Hcl 1,000 Mg Tablet 1,000 Mg PO BIDWMEALS Aspirin 81 Mg Tab.chew 1 Tab PO DAILY Cardizem Cd (Diltiazem Hcl) 180 Mg Cap.er.24h 1 Cap PO DAILY Cardizem Tablet (Diltiazem Hcl) 60 Mg Tablet 60 Mg PO QID Flomax (Tamsulosin Hcl) 0.4 Mg Cap.er.24h 1 Cap PO DAILY Simvastatin 80 Mg Tablet 1 Tab PO QHS 30 Days Timolol Maleate 5 Ml Drops 1 Drop OD BID Xalatan (Latanoprost) 2.5 Ml Drops 1 Drop OU QHS Allergies: Coded Allergies: No Known Drug Allergies (Unverified , 06/21/21) Physical Examination PHYSICAL EXAMINATION: GENERAL: Confused, in mitts HEENT: Head: Normocephalic, atraumatic. Airway Impairment: No. CHEST: Shape and expansion: Normal. Expansion: Normal. SKIN: General: Warm. Color: Good. GENITOURINARY:martin catheter with clear yellow urine NEUROLOGICAL: Mental status: Alert and oriented 3. Language: Normal. VITALS Vital Signs Date Time Temp Pulse Resp B/P (MAP) Pulse Ox O2 Delivery O2 Flow Rate FiO2 06/23/21 13:00 114 18 119/67 100 Room Air 06/23/21 12:00 98.1 98.1 06/22/21 11:00 2.0 Labs Laboratory Tests Test 06/21/21 19:11 06/21/21 19:20 06/21/21 19:44 06/21/21 20:28 White Blood Count 16.2 x10^3/uL (4.0-11.0) Red Blood Count 4.43 x10^6/uL (4.30-5.70) Hemoglobin 14.3 g/dL (13.0-17.5) Hematocrit 43.9 % (39.0-53.0) Mean Corpuscular Volume 99 fL (79-100) Mean Corpuscular Hemoglobin 32 pg (25-35) Mean Corpuscular Hemoglobin Concent 33 g/dL (31-37) Red Cell Distribution Width 15.1 % (11.5-14.5) Platelet Count 58 x10^3/uL (140-400) Neutrophils (%) (Auto) 93 % (31-73) Lymphocytes (%) (Auto) 2 % (24-48) Monocytes (%) (Auto) 5 % (0-9) Eosinophils (%) (Auto) 0 % (0-3) Basophils (%) (Auto) 0 % (0-3) Neutrophils # (Auto) 15.0 x10^3/uL (1.8-7.7) Lymphocytes # (Auto) 0.3 x10^3/uL (1.0-4.8) Monocytes # (Auto) 0.8 x10^3/uL (0.0-1.1) Eosinophils # (Auto) 0.0 x10^3/uL (0.0-0.7) Basophils # (Auto) 0.1 x10^3/uL (0.0-0.2) Segmented Neutrophils % 93 % (35-66) Band Neutrophils % 4 % (0-9) Lymphocytes % 2 % (24-48) Monocytes % 1 % (0-10) Platelet Estimate Decreased (ADEQUATE) Brianna Cells Present Prothrombin Time 33.4 SEC (11.7-14.0) Prothromb Time International Ratio 3.4 (0.8-1.1) Activated Partial Thromboplast Time 38 SEC (24-38) Sodium Level 143 mmol/L (136-145) Potassium Level 5.6 mmol/L (3.5-5.1) Chloride Level 103 mmol/L (98-107) Carbon Dioxide Level 13 mmol/L (21-32) Anion Gap 27 (6-14) Blood Urea Nitrogen 106 mg/dL (8-26) Creatinine 3.0 mg/dL (0.7-1.3) Estimated GFR (Cockcroft-Gault) 20.1 BUN/Creatinine Ratio 35 (6-20) Glucose Level 446 mg/dL (70-99) Lactic Acid Level 10.2 mmol/L (0.4-2.0) Calcium Level 10.0 mg/dL (8.5-10.1) Total Bilirubin 3.2 mg/dL (0.2-1.0) Aspartate Amino Transf (AST/SGOT) 2562 U/L (15-37) Alanine Aminotransferase (ALT/SGPT) 2035 U/L (16-63) Alkaline Phosphatase 161 U/L (46-116) Troponin I High Sensitivity 560 ng/L (4-75) [id number]-Type Natriuretic Peptide > 13312 pg/mL (0-449) Total Protein 7.2 g/dL (6.4-8.2) Albumin 4.3 g/dL (3.4-5.0) Albumin/Globulin Ratio 1.5 (1.0-1.7) Procalcitonin 0.45 ng/mL (0.00-0.10) Thyroid Stimulating Hormone (TSH) 2.367 uIU/mL (0.358-3.74) Acetone Level Neg (NEG) Urine Collection Type Unknown Urine Color (Auto) Yellow Urine Turbidity Clear Urine pH (Auto) 5.0 (<5.0-8.0) Urine Specific [place] 1.027 (1.000-1.030) Urine Protein (Auto) 30 mg/dL (Negative) Urine Glucose (Auto)(UA) >=1000 mg/dL (Negative) Urine Ketones (Auto) Negative mg/dL (Negative) Urine Blood (Auto) Negative (Negative) Urine Nitrite Negative (Negative) Urine Bilirubin (Auto) Negative (Negative) Urine Urobilinogen (Auto) Normal mg/dL (Normal) Urine Leukocyte Esterase (Auto) Negative (Negative) Urine RBC 0 /HPF (0-2) Urine WBC 5-10 /HPF (0-4) Urine Squamous Epithelial Cells Few /LPF Urine Bacteria 0 /HPF (0-FEW) Urine Hyaline Casts Moderate /HPF Urine Mucus Slight /LPF O2 Saturation 99 % (92-99) Arterial Blood pH 7.40 (7.35-7.45) Arterial Blood pCO2 at Patient Temp 18 mmHg (35-46) Arterial Blood pO2 at Patient Temp 182 mmHg (65-108) Arterial Blood HCO3 11 mmol/L (21-28) Arterial Blood Base Excess -11 mmol/L (-3-3) FiO2 32 Influenza Type A Antigen Negative (NEGATIVE) Influenza Type B Antigen Negative (NEGATIVE) SARS-CoV-2 Antigen (Rapid) Negative (NEGATIVE) Test 06/21/21 22:33 06/22/21 04:00 06/22/21 17:23 06/23/21 04:40 Lactic Acid Level 4.8 mmol/L (0.4-2.0) Troponin I High Sensitivity 644 ng/L (4-75) 1011 ng/L (4-75) White Blood Count 12.8 x10^3/uL (4.0-11.0) 10.1 x10^3/uL (4.0-11.0) Red Blood Count 3.89 x10^6/uL (4.30-5.70) 3.96 x10^6/uL (4.30-5.70) Hemoglobin 12.5 g/dL (13.0-17.5) 12.8 g/dL (13.0-17.5) Hematocrit 37.5 % (39.0-53.0) 38.7 % (39.0-53.0) Mean Corpuscular Volume 96 fL (79-100) 98 fL (79-100) Mean Corpuscular Hemoglobin 32 pg (25-35) 32 pg (25-35) Mean Corpuscular Hemoglobin Concent 33 g/dL (31-37) 33 g/dL (31-37) Red Cell Distribution Width 14.5 % (11.5-14.5) 15.1 % (11.5-14.5) Platelet Count 46 x10^3/uL (140-400) 48 x10^3/uL (140-400) Neutrophils (%) (Auto) 93 % (31-73) Lymphocytes (%) (Auto) 3 % (24-48) Monocytes (%) (Auto) 4 % (0-9) Eosinophils (%) (Auto) 0 % (0-3) Basophils (%) (Auto) 0 % (0-3) Neutrophils # (Auto) 11.9 x10^3/uL (1.8-7.7) Lymphocytes # (Auto) 0.4 x10^3/uL (1.0-4.8) Monocytes # (Auto) 0.6 x10^3/uL (0.0-1.1) Eosinophils # (Auto) 0.0 x10^3/uL (0.0-0.7) Basophils # (Auto) 0.0 x10^3/uL (0.0-0.2) Prothrombin Time 31.4 SEC (11.7-14.0) Prothromb Time International Ratio 3.1 (0.8-1.1) Heparin Anti-Xa Act, Unfractionated 0.21 IU/mL (0.30-0.70) Sodium Level 147 mmol/L (136-145) Potassium Level 4.1 mmol/L (3.5-5.1) Chloride Level 110 mmol/L (98-107) Carbon Dioxide Level 19 mmol/L (21-32) Anion Gap 18 (6-14) Blood Urea Nitrogen 105 mg/dL (8-26) Creatinine 2.7 mg/dL (0.7-1.3) Estimated GFR (Cockcroft-Gault) 22.7 BUN/Creatinine Ratio 39 (6-20) Glucose Level 308 mg/dL (70-99) Calcium Level 8.6 mg/dL (8.5-10.1) Total Bilirubin 2.2 mg/dL (0.2-1.0) Aspartate Amino Transf (AST/SGOT) 2166 U/L (15-37) Alanine Aminotransferase (ALT/SGPT) 1618 U/L (16-63) Alkaline Phosphatase 117 U/L (46-116) Creatine Kinase 323 U/L (39-308) Total Protein 5.4 g/dL (6.4-8.2) Albumin 3.3 g/dL (3.4-5.0) Albumin/Globulin Ratio 1.6 (1.0-1.7) Hepatitis A IgM Antibody Nonreactive (Nonreactive) Hepatitis B Surface Antigen Nonreactive (Nonreactive) Hepatitis B Core IgM Antibody Nonreactive (Nonreactive) Hepatitis C IgG Antibody Nonreactive (Nonreactive) Glucose (Fingerstick) 336 mg/dL (70-99) Test 06/23/21 04:45 06/23/21 08:58 06/23/21 10:53 Sodium Level 151 mmol/L (136-145) Potassium Level 2.9 mmol/L (3.5-5.1) Chloride Level 112 mmol/L (98-107) Carbon Dioxide Level 19 mmol/L (21-32) Anion Gap 20 (6-14) Blood Urea Nitrogen 85 mg/dL (8-26) Creatinine 1.9 mg/dL (0.7-1.3) Estimated GFR (Cockcroft-Gault) 34.0 Glucose Level 406 mg/dL (70-99) Calcium Level 8.0 mg/dL (8.5-10.1) Total Bilirubin 2.1 mg/dL (0.2-1.0) Direct Bilirubin 1.1 mg/dL (0.0-0.2) Aspartate Amino Transf (AST/SGOT) 499 U/L (15-37) Alanine Aminotransferase (ALT/SGPT) 1158 U/L (16-63) Alkaline Phosphatase 111 U/L (46-116) Total Protein 5.0 g/dL (6.4-8.2) Albumin 2.7 g/dL (3.4-5.0) Glucose (Fingerstick) 337 mg/dL (70-99) Prothrombin Time 23.2 SEC (11.7-14.0) Prothromb Time International Ratio 2.1 (0.8-1.1) Magnesium Level 2.2 mg/dL (1.8-2.4) Laboratory Tests Test 06/22/21 17:23 06/23/21 04:40 06/23/21 04:45 06/23/21 08:58 Glucose (Fingerstick) 336 mg/dL (70-99) 337 mg/dL (70-99) White Blood Count 10.1 x10^3/uL (4.0-11.0) Red Blood Count 3.96 x10^6/uL (4.30-5.70) Hemoglobin 12.8 g/dL (13.0-17.5) Hematocrit 38.7 % (39.0-53.0) Mean Corpuscular Volume 98 fL (79-100) Mean Corpuscular Hemoglobin 32 pg (25-35) Mean Corpuscular Hemoglobin Concent 33 g/dL (31-37) Red Cell Distribution Width 15.1 % (11.5-14.5) Platelet Count 48 x10^3/uL (140-400) Sodium Level 151 mmol/L (136-145) Potassium Level 2.9 mmol/L (3.5-5.1) Chloride Level 112 mmol/L (98-107) Carbon Dioxide Level 19 mmol/L (21-32) Anion Gap 20 (6-14) Blood Urea Nitrogen 85 mg/dL (8-26) Creatinine 1.9 mg/dL (0.7-1.3) Estimated GFR (Cockcroft-Gault) 34.0 Glucose Level 406 mg/dL (70-99) Calcium Level 8.0 mg/dL (8.5-10.1) Total Bilirubin 2.1 mg/dL (0.2-1.0) Direct Bilirubin 1.1 mg/dL (0.0-0.2) Aspartate Amino Transf (AST/SGOT) 499 U/L (15-37) Alanine Aminotransferase (ALT/SGPT) 1158 U/L (16-63) Alkaline Phosphatase 111 U/L (46-116) Total Protein 5.0 g/dL (6.4-8.2) Albumin 2.7 g/dL (3.4-5.0) Test 06/23/21 10:53 Prothrombin Time 23.2 SEC (11.7-14.0) Prothromb Time International Ratio 2.1 (0.8-1.1) Magnesium Level 2.2 mg/dL (1.8-2.4) Assessment/Plan ---Right hydronephrosis Difficult to verify as CT A/P did not show this, but abd US did. Cr has improved since admission. 1.9 from 3. Martin catheter in place. Nursing to bladder scan to ensure adequate drainage. Will order repeat CMP and renal ultrasound in the morning. If hydronephrosis present at that time, will consider ureteral stent placement. D/w Dr Nicholson. Urology will follow. ELISA CUNHA APRN Jun 23, 2021 13:23
--- NOTE | 2021-06-23 14:52 | PDOC ---
Infectious Disease Note Subjective Subjective Patient is awake. Crying and saying that please help me take the poison away from me takes the evil away from me ROS ROS No nausea vomiting diarrhea chest pain shortness of breath Vital Sign Vital Signs Vital Signs Date Time Temp Pulse Resp B/P (MAP) Pulse Ox O2 Delivery O2 Flow Rate FiO2 06/23/21 13:00 114 18 119/67 100 Room Air 06/23/21 12:00 98.1 98.1 06/22/21 11:00 2.0 Physical Exam PHYSICAL EXAM GENERAL: Chronically ill-appearing male, somewhat confused. Speech is garbled, wearing mittens on O2 by nasal cannula. HEENT: Normocephalic, atraumatic. Anicteric. Pupils equal, reactive. Oral mucosa moist, few teeth. NECK: Supple. LUNGS: Decreased breath sounds at the bases. No rhonchi. HEART: S1, S2, irregular, systolic murmur. ABDOMEN: Soft, mildly distended, mild discomfort on deep palpation. No rebound or guarding. EXTREMITIES: Bilateral lower extremity edema with warmth. Right third toe has hammertoe with small ulceration. DERMATOLOGIC: Warm, dry, no generalized rash. NEUROLOGIC: Confused, garbled speech. PSYCHIATRIC: Unable to assess, confused. MUSCULOSKELETAL: DJD. LABORATORY DATA: WBC 12.8-16.2, hemoglobin 12.5, hematocrit 37.5, platelets 46. Sodium 143, potassium 5.6, chloride 103, bicarbonate 13, BUN 106, creatinine 3.0, glucose 446. Lactate 4.8 from 10.2, total bilirubin 3.2, AST 2562, ALT 2035, alkaline phosphatase 161, albumin 4.3. UA, 5-10 wbc's, leukocyte esterase negative, acetone negative. Influenza screen negative. SARS-COVID negative. Hepatitis profile negative. DIAGNOSTIC: CT abdomen, chest and pelvis shows cardiomegaly, large amount of stool in the distal colon, correlate for constipation. Head CT as per above. Chest x-ray, no acute pulmonary process. MICRO: 1. Blood culture pending. 2. Urine culture pending. IMPRESSION: 1. Sepsis, likely cardiac with multiorgan failure. 2. Non-STEMI with an atrial fibrillation with rapid ventricular response. 3. Acute kidney injury. 4. Thrombocytopenia, coagulopathy, elevated liver functions, latter likely from sepsis. 5. History of nonischemic cardiomyopathy Takotsubo. 6. Acute hypoxic respiratory failure. 7. Leukocytosis and lactic acidosis. 8. Leg swelling with possible secondary cellulitis. 9. Encephalopathy, likely metabolic.CThead as above Labs Lab Laboratory Tests Test 06/22/21 17:23 06/23/21 04:40 06/23/21 04:45 06/23/21 08:58 Glucose (Fingerstick) 336 mg/dL (70-99) 337 mg/dL (70-99) White Blood Count 10.1 x10^3/uL (4.0-11.0) Red Blood Count 3.96 x10^6/uL (4.30-5.70) Hemoglobin 12.8 g/dL (13.0-17.5) Hematocrit 38.7 % (39.0-53.0) Mean Corpuscular Volume 98 fL (79-100) Mean Corpuscular Hemoglobin 32 pg (25-35) Mean Corpuscular Hemoglobin Concent 33 g/dL (31-37) Red Cell Distribution Width 15.1 % (11.5-14.5) Platelet Count 48 x10^3/uL (140-400) Sodium Level 151 mmol/L (136-145) Potassium Level 2.9 mmol/L (3.5-5.1) Chloride Level 112 mmol/L (98-107) Carbon Dioxide Level 19 mmol/L (21-32) Anion Gap 20 (6-14) Blood Urea Nitrogen 85 mg/dL (8-26) Creatinine 1.9 mg/dL (0.7-1.3) Estimated GFR (Cockcroft-Gault) 34.0 Glucose Level 406 mg/dL (70-99) Calcium Level 8.0 mg/dL (8.5-10.1) Total Bilirubin 2.1 mg/dL (0.2-1.0) Direct Bilirubin 1.1 mg/dL (0.0-0.2) Aspartate Amino Transf (AST/SGOT) 499 U/L (15-37) Alanine Aminotransferase (ALT/SGPT) 1158 U/L (16-63) Alkaline Phosphatase 111 U/L (46-116) Total Protein 5.0 g/dL (6.4-8.2) Albumin 2.7 g/dL (3.4-5.0) Test 4/8/22 10:53 Prothrombin Time 23.2 SEC (11.7-14.0) Prothromb Time International Ratio 2.1 (0.8-1.1) Magnesium Level 2.2 mg/dL (1.8-2.4) Micro Microbiology 06/21/21 Urine Culture - Final, Complete 06/21/21 Blood Culture - Preliminary, Resulted NO GROWTH AFTER 1 DAY Objective Assessment 1. Sepsis, likely cardiac with multiorgan failure. 2. Non-STEMI with an atrial fibrillation with rapid ventricular response. 3. Acute kidney injury. 4. Thrombocytopenia, coagulopathy, elevated liver functions, latter likely from sepsis. 5. History of nonischemic cardiomyopathy Takotsubo. 6. Acute hypoxic respiratory failure. 7. Leukocytosis and lactic acidosis. 8. Leg swelling with possible secondary cellulitis. 9. Encephalopathy, likely metabolic.CThead as above Plan Plan of Care Recommendations Continue Zosyn Status post 1 dose of vancomycin. We will give Zyvox for now. Would like to avoid IV vancomycin due to SUNNY and daptomycin due to elevated CK Elevated lower extremity Follow-up Doppler venous ultrasound Monitor labs and cultures Continue supportive care Discussed with LUIS ALBERTO RAYMOND MD Jun 23, 2021 14:52
[2021-06-23] MEDS: fentaNYL PF VIAL 100 MCG/2 ML VIAL IVP PRN (19:38)
[2021-06-24] VITALS: BP 89/77
[2021-06-24] MEDS: METOPROLOL IV PUSH 5 MG/5 ML VIAL. IVP SCH ×5 (00:03→23:25)
[2021-06-24] MEDS: fentaNYL PF VIAL 100 MCG/2 ML VIAL IVP PRN ×2 (01:50→14:08)
[2021-06-24 04:00] VITALS: BP 111/72
[2021-06-24 04:20] LABS: HEMATOCRIT 41.2 % (39.0-53.0); HEMOGLOBIN 13.9 g/dL (13.0-17.5); RED BLOOD COUNT 4.25 x10^6/uL (4.30-5.70); RED CELL DISTRIBUTION WIDTH 15.2 % (11.5-14.5); WHITE BLOOD COUNT 9.9 x10^3/uL (4.0-11.0)
[2021-06-24 04:35] LABS: ALBUMIN 2.6 g/dL (3.4-5.0); CALCIUM 7.9 mg/dL (8.5-10.1); CREATININE 1.5 mg/dL (0.7-1.3); GFR 44.7; POTASSIUM 3.1 mmol/L (3.5-5.1); TOTAL BILIRUBIN 2.3 mg/dL (0.2-1.0); TOTAL PROTEIN 5.1 g/dL (6.4-8.2)
[2021-06-24] MEDS: PIPERACILLIN/TAZOBACTAM 2.25 GM in IV NORMAL SALINE 50ML 50 ML IV SCH ×5 (05:55→23:25)
--- NOTE | 2021-06-24 07:16 | PDOC ---
PROGRESS NOTES Date of Service: DATE: 06/24/21 TIME: 07:16 Subjective Subjective Remains confused Objective Objective Vital Signs Date Time Temp Pulse Resp B/P (MAP) Pulse Ox O2 Delivery O2 Flow Rate FiO2 06/24/21 05:54 110 97/66 06/24/21 04:00 98.0 22 100 Room Air 98.0 06/24/21 02:20 2.0 Intake and Output 06/24/21 07:00 Intake Total 0 ml Output Total 1425 ml Balance -1425 ml Other 0 ml Output Urine Total 1425 ml Physical Exam Abdomen: Normal bowel sounds Heart: Other (AFIB, 2/6 systolic murmur to LLS border) Extremities: Other (Bilateral LE pitting edema 4+) General: mild distress, Other (Nonverbal) HEENT: Atraumatic Lungs: Other (diminished bases) MUSCULOSKELETAL: Osteoarthritic changes both hands Neuro: Normal speech, Sensation intact Psych/Mental Status: Other (confused) Skin: Other (He has chronic venous stasis and thin skin) Assessment Assessment 1. NSTEMI: suspect demand mediated with multiorgan failure and AFIB RVR 2. AFIB RVR: paroxysmal by hx 3. LBBB: no prior EKG for comparison 4. Severe SUNNY with hypernatremia: nephrology following 5. Coagulopathy 6. Thrombocytopenia 7. Severe transaminitis: improving 8. Fall a week ago: unclear details 9. 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 Acute hypoxic respiratory failure 11. Sepsis: per PCP 12. Leg swelling: due to CHF, No DVT per doppler 13. Metabolic encephalopathy 14. 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 15. Cardiohepatorenal syndrome 16. Acute on chronic systolic CHF: no SOA currently 17. cachexia 18. DM2?: uncontrolled BG Recommendations 1. Continue IV lopressor. May give PRN digoxin sparingly Ideally would need inotropic agent will consider once HR is better controlled. 2. Cardiac records at [facility] pending 3. Caution with QT prolonging agents: QTc 515 4. Poor senior care prognosis. Supportive care 5. Future ischemic workup as an outpt pending goals of care. Will start and optimize HF regimen once extracardiac issues are better and BP is consistently adequate. Lasix PRN for now Plan Plan of Care Problems Medical Problems: (1) Acute metabolic encephalopathy Status: Acute (2) Acute urinary retention Status: Acute (3) Atrial fibrillation with rapid ventricular response Status: Acute (4) Cholestasis Status: Acute (5) Lactic acidemia Status: Acute (6) Metabolic acidosis Status: Acute (7) NSTEMI (non-ST elevated myocardial infarction) Status: Acute (8) Shock Status: Acute (9) Transaminasemia Status: Acute (10) Volume overload Status: Acute Comment Review of Relevant I have reviewed the following items scot (where applicable) has been applied. Labs Laboratory Tests Test 06/23/21 08:58 06/23/21 10:53 06/23/21 18:13 06/23/21 21:11 Glucose (Fingerstick) 337 mg/dL (70-99) 358 mg/dL (70-99) 268 mg/dL (70-99) Prothrombin Time 23.2 SEC (11.7-14.0) Prothromb Time International Ratio 2.1 (0.8-1.1) Magnesium Level 2.2 mg/dL (1.8-2.4) Test 06/24/21 04:00 White Blood Count 9.9 x10^3/uL (4.0-11.0) Red Blood Count 4.25 x10^6/uL (4.30-5.70) Hemoglobin 13.9 g/dL (13.0-17.5) Hematocrit 41.2 % (39.0-53.0) Mean Corpuscular Volume 97 fL (79-100) Mean Corpuscular Hemoglobin 33 pg (25-35) Mean Corpuscular Hemoglobin Concent 34 g/dL (31-37) Red Cell Distribution Width 15.2 % (11.5-14.5) Platelet Count 43 x10^3/uL (140-400) Sodium Level 153 mmol/L (136-145) Potassium Level 3.1 mmol/L (3.5-5.1) Chloride Level 119 mmol/L (98-107) Carbon Dioxide Level 23 mmol/L (21-32) Anion Gap 11 (6-14) Blood Urea Nitrogen 65 mg/dL (8-26) Creatinine 1.5 mg/dL (0.7-1.3) Estimated GFR (Cockcroft-Gault) 44.7 BUN/Creatinine Ratio 43 (6-20) Glucose Level 301 mg/dL (70-99) Calcium Level 7.9 mg/dL (8.5-10.1) Total Bilirubin 2.3 mg/dL (0.2-1.0) Aspartate Amino Transf (AST/SGOT) 329 U/L (15-37) Alanine Aminotransferase (ALT/SGPT) 963 U/L (16-63) Alkaline Phosphatase 112 U/L (46-116) Total Protein 5.1 g/dL (6.4-8.2) Albumin 2.6 g/dL (3.4-5.0) Albumin/Globulin Ratio 1.0 (1.0-1.7) Microbiology 06/21/21 Urine Culture - Final, Complete 06/21/21 Blood Culture - Preliminary, Resulted NO GROWTH AFTER 2 DAYS Medications Current Medications Dextrose (Dextrose 50%-Water Syringe) 12.5 gm PRN Q15MIN PRN IV SEE COMMENTS; Start 06/23/21 at 09:15 Dextrose (Iv Dextrose 5%) 250 ml PRN Q15MIN PRN IV SEE COMMENTS; Start 06/23/21 at 09:15 Insulin Human Lispro (HumaLOG) 0-7 UNITS TIDWMEALS SQ Last administered on 06/23/21at 18:15; Start 06/23/21 at 12:00 Potassium Chloride/Water 100 ml @ 100 mls/hr Q1H IV Last administered on 06/23/21at 18:03; Start 06/23/21 at 10:00; Stop 06/23/21 at 17:59; Status DC Vitals/I & O Vital Sign - Last 24 Hours 06/23/21 06/23/21 06/23/21 06/23/21 08:00 08:00 09:00 10:00 Temp 98.0 98.0 Pulse 110 108 114 Resp 18 18 18 B/P (MAP) 95/63 108/71 117/77 Pulse Ox 98 88 99 O2 Delivery Room Air Room Air Room Air Room Air 06/23/21 06/23/21 06/23/21 06/23/21 11:00 12:00 12:00 12:35 Temp 98.1 98.1 Pulse 114 104 136 Resp 18 20 B/P (MAP) 95/81 104/64 104/68 Pulse Ox 100 100 O2 Delivery Room Air Room Air Room Air 4/806/23/21 06/23/21 06/23/21 13:00 14:00 15:00 16:00 Pulse 114 104 102 Resp 18 18 20 B/P (MAP) 119/67 94/64 115/60 Pulse Ox 100 99 98 O2 Delivery Room Air Room Air Room Air Room Air 06/23/21 06/23/21 06/23/21 06/23/21 16:00 17:00 18:00 18:18 Temp 98.2 98.2 Pulse 104 106 95 128 Resp 25 30 24 B/P (MAP) 95/73 108/63 103/74 103/74 Pulse Ox 98 100 100 O2 Delivery Room Air Room Air Room Air 06/23/21 06/23/21 06/23/21 06/23/21 19:38 20:00 20:00 20:08 Temp 97.2 97.2 Pulse 107 Resp 20 20 20 B/P (MAP) 87/62 Pulse Ox 100 100 100 O2 Delivery Room Air Room Air Room Air Room Air O2 Flow Rate 2.0 2.0 06/24/21 06/24/21 06/24/21 06/24/21 00:00 00:03 01:50 02:20 Temp 97.9 97.9 Pulse 95 107 Resp 22 24 20 B/P (MAP) 89/77 89/77 Pulse Ox 100 100 100 O2 Delivery Room Air Room Air Room Air O2 Flow Rate 2.0 2.0 06/24/21 06/24/21 04:00 05:54 Temp 98.0 98.0 Pulse 78 110 Resp 22 B/P (MAP) 111/72 97/66 Pulse Ox 100 O2 Delivery Room Air Intake and Output 06/23/21 06/23/21 06/24/21 15:00 23:00 07:00 Intake Total 0 ml Output Total 770 ml 380 ml 275 ml Balance -770 ml -380 ml -275 ml VALERIE COHEN MD Jun 24, 2021 07:16
[2021-06-24 08:00] VITALS: BP 113/68
[2021-06-24] MEDS: POTASSIUM CHLORIDE 10MEQ 100 ML IV SCH ×4 (08:12→11:49)
[2021-06-24] MEDS: INSULIN LISPRO 300 UNITS/3 ML VIAL. SQ SCH ×3 (08:13→17:00)
--- NOTE | 2021-06-24 08:37 | PDOC ---
PULMONARY PROGRESS NOTES DATE: 06/24/21 TIME: 08:36 Subjective No overnight events patient remains confused currently off of oxygen blood pressure is better, off of pressors Vitals Vital Signs Date Time Temp Pulse Resp B/P (MAP) Pulse Ox O2 Delivery O2 Flow Rate FiO2 06/24/21 05:54 110 97/66 06/24/21 04:00 98.0 22 100 Room Air 98.0 06/24/21 02:20 2.0 ROS: No Nausea, No Chest Pain, No Abdominal Pain, No Increase Cough General: Confused Lungs: Wheezing, Crackles Cardiovascular: S1, S2 Abdomen: Soft Neuro Exam: Alert Extremities: No Edema Skin: Warm Labs Laboratory Tests Test 06/22/21 17:23 06/23/21 04:40 06/23/21 04:45 06/23/21 08:58 Glucose (Fingerstick) 336 mg/dL (70-99) 337 mg/dL (70-99) White Blood Count 10.1 x10^3/uL (4.0-11.0) Red Blood Count 3.96 x10^6/uL (4.30-5.70) Hemoglobin 12.8 g/dL (13.0-17.5) Hematocrit 38.7 % (39.0-53.0) Mean Corpuscular Volume 98 fL (79-100) Mean Corpuscular Hemoglobin 32 pg (25-35) Mean Corpuscular Hemoglobin Concent 33 g/dL (31-37) Red Cell Distribution Width 15.1 % (11.5-14.5) Platelet Count 48 x10^3/uL (140-400) Sodium Level 151 mmol/L (136-145) Potassium Level 2.9 mmol/L (3.5-5.1) Chloride Level 112 mmol/L (98-107) Carbon Dioxide Level 19 mmol/L (21-32) Anion Gap 20 (6-14) Blood Urea Nitrogen 85 mg/dL (8-26) Creatinine 1.9 mg/dL (0.7-1.3) Estimated GFR (Cockcroft-Gault) 34.0 Glucose Level 406 mg/dL (70-99) Calcium Level 8.0 mg/dL (8.5-10.1) Total Bilirubin 2.1 mg/dL (0.2-1.0) Direct Bilirubin 1.1 mg/dL (0.0-0.2) Aspartate Amino Transf (AST/SGOT) 499 U/L (15-37) Alanine Aminotransferase (ALT/SGPT) 1158 U/L (16-63) Alkaline Phosphatase 111 U/L (46-116) Total Protein 5.0 g/dL (6.4-8.2) Albumin 2.7 g/dL (3.4-5.0) Test 06/23/21 10:53 06/23/21 18:13 06/23/21 21:11 06/24/21 04:00 Prothrombin Time 23.2 SEC (11.7-14.0) Prothromb Time International Ratio 2.1 (0.8-1.1) Magnesium Level 2.2 mg/dL (1.8-2.4) Glucose (Fingerstick) 358 mg/dL (70-99) 268 mg/dL (70-99) White Blood Count 9.9 x10^3/uL (4.0-11.0) Red Blood Count 4.25 x10^6/uL (4.30-5.70) Hemoglobin 13.9 g/dL (13.0-17.5) Hematocrit 41.2 % (39.0-53.0) Mean Corpuscular Volume 97 fL (79-100) Mean Corpuscular Hemoglobin 33 pg (25-35) Mean Corpuscular Hemoglobin Concent 34 g/dL (31-37) Red Cell Distribution Width 15.2 % (11.5-14.5) Platelet Count 43 x10^3/uL (140-400) Sodium Level 153 mmol/L (136-145) Potassium Level 3.1 mmol/L (3.5-5.1) Chloride Level 119 mmol/L (98-107) Carbon Dioxide Level 23 mmol/L (21-32) Anion Gap 11 (6-14) Blood Urea Nitrogen 65 mg/dL (8-26) Creatinine 1.5 mg/dL (0.7-1.3) Estimated GFR (Cockcroft-Gault) 44.7 BUN/Creatinine Ratio 43 (6-20) Glucose Level 301 mg/dL (70-99) Calcium Level 7.9 mg/dL (8.5-10.1) Total Bilirubin 2.3 mg/dL (0.2-1.0) Aspartate Amino Transf (AST/SGOT) 329 U/L (15-37) Alanine Aminotransferase (ALT/SGPT) 963 U/L (16-63) Alkaline Phosphatase 112 U/L (46-116) Total Protein 5.1 g/dL (6.4-8.2) Albumin 2.6 g/dL (3.4-5.0) Albumin/Globulin Ratio 1.0 (1.0-1.7) Laboratory Tests Test 06/23/21 08:58 06/23/21 10:53 06/23/21 18:13 06/23/21 21:11 Glucose (Fingerstick) 337 mg/dL (70-99) 358 mg/dL (70-99) 268 mg/dL (70-99) Prothrombin Time 23.2 SEC (11.7-14.0) Prothromb Time International Ratio 2.1 (0.8-1.1) Magnesium Level 2.2 mg/dL (1.8-2.4) Test 06/24/21 04:00 White Blood Count 9.9 x10^3/uL (4.0-11.0) Red Blood Count 4.25 x10^6/uL (4.30-5.70) Hemoglobin 13.9 g/dL (13.0-17.5) Hematocrit 41.2 % (39.0-53.0) Mean Corpuscular Volume 97 fL (79-100) Mean Corpuscular Hemoglobin 33 pg (25-35) Mean Corpuscular Hemoglobin Concent 34 g/dL (31-37) Red Cell Distribution Width 15.2 % (11.5-14.5) Platelet Count 43 x10^3/uL (140-400) Sodium Level 153 mmol/L (136-145) Potassium Level 3.1 mmol/L (3.5-5.1) Chloride Level 119 mmol/L (98-107) Carbon Dioxide Level 23 mmol/L (21-32) Anion Gap 11 (6-14) Blood Urea Nitrogen 65 mg/dL (8-26) Creatinine 1.5 mg/dL (0.7-1.3) Estimated GFR (Cockcroft-Gault) 44.7 BUN/Creatinine Ratio 43 (6-20) Glucose Level 301 mg/dL (70-99) Calcium Level 7.9 mg/dL (8.5-10.1) Total Bilirubin 2.3 mg/dL (0.2-1.0) Aspartate Amino Transf (AST/SGOT) 329 U/L (15-37) Alanine Aminotransferase (ALT/SGPT) 963 U/L (16-63) Alkaline Phosphatase 112 U/L (46-116) Total Protein 5.1 g/dL (6.4-8.2) Albumin 2.6 g/dL (3.4-5.0) Albumin/Globulin Ratio 1.0 (1.0-1.7) Medications Active Scripts Medications Dose Route/Sig Max Daily Dose Days Date Category Magnesium Chloride 70 Mg Tablet.dr 70 Mg PO 06/21/21 Reported Hydrochlorothiazide Tablet (Hydrochlorothiazide) 25 Mg Tablet 25 Mg PO DAILY 06/21/21 Reported Lasix (Furosemide) 20 Mg Tablet 20 Mg PO BID 06/21/21 Reported Eliquis (Apixaban) 5 Mg Tablet 5 Mg PO 06/21/21 Reported Metformin Hcl 1,000 Mg Tablet 1,000 Mg PO BIDWMEALS 06/21/21 Reported Aspirin 81 Mg Tab.chew 1 Tab PO DAILY 06/21/21 Reported Cardizem Cd (Diltiazem Hcl) 180 Mg Cap.er.24h 1 Cap PO DAILY 06/21/21 Reported Cardizem Tablet (Diltiazem Hcl) 60 Mg Tablet 60 Mg PO QID 06/21/21 Reported Flomax (Tamsulosin Hcl) 0.4 Mg Cap.er.24h 1 Cap PO DAILY 06/21/21 Reported Simvastatin 80 Mg Tablet 1 Tab PO QHS 30 06/21/21 Reported Timolol Maleate 5 Ml Drops 1 Drop OD BID 06/21/21 Reported Xalatan (Latanoprost) 2.5 Ml Drops 1 Drop OU QHS 06/21/21 Reported Impression . IMPRESSION: 1. Acute hypoxemic respiratory failure, multifactorial. 2. Multiorgan failure/sepsis. 3. Cardiomyopathy. 4. Non-ST segment elevation myocardial infarction. 5. Thrombocytopenia. 6. Lactic acidosis. 7. Acute on chronic renal failure. 8. Liver failure. 9. Metabolic and toxic encephalopathy. Plan . Updated 06/24 Very confused Continue current support Continue oxygen to maintain sats above 92% Antibiotics per ID Follow cardiology input Monitor BUN and creatinine NORMA HARRIS MD Jun 24, 2021 08:37
--- NOTE | 2021-06-24 10:44 | PDOC ---
PROGRESS NOTE DATE OF SERVICE: DATE: 06/24/21 TIME: 10:40 CHIEF COMPLAINT: SALOME SUBJECTIVE: ROS: ROS: SALOME due to mental status HPI: Patient confused. Yelling out. Matrin catheter with clear yellow urine. Problems: Problems Medical Problems: (1) Acute metabolic encephalopathy Status: Acute (2) Acute urinary retention Status: Acute (3) Atrial fibrillation with rapid ventricular response Status: Acute (4) Cholestasis Status: Acute (5) Lactic acidemia Status: Acute (6) Metabolic acidosis Status: Acute (7) NSTEMI (non-ST elevated myocardial infarction) Status: Acute (8) Shock Status: Acute (9) Transaminasemia Status: Acute (10) Volume overload Status: Acute OBJECTIVE: Vital Signs: Vital Signs Date Time Temp Pulse Resp B/P (MAP) Pulse Ox O2 Delivery O2 Flow Rate FiO2 06/24/21 08:00 97.9 91 18 113/68 100 Room Air 97.9 06/24/21 08:00 Room Air 06/24/21 05:54 110 97/66 06/24/21 04:00 98.0 78 22 111/72 100 Room Air 98.0 06/24/21 02:20 20 100 Room Air 2.0 06/24/21 01:50 24 100 Room Air 2.0 06/24/21 00:03 107 89/77 06/24/21 00:00 97.9 95 22 89/77 100 Room Air 97.9 06/23/21 20:08 20 100 Room Air 2.0 06/23/21 20:00 97.2 107 20 87/62 100 Room Air 97.2 06/23/21 20:00 Room Air 06/23/21 19:38 20 100 Room Air 2.0 06/23/21 18:18 128 103/74 06/23/21 18:00 95 24 103/74 100 Room Air 06/23/21 17:00 106 30 108/63 100 Room Air 06/23/21 16:00 98.2 104 25 95/73 98 Room Air 98.2 06/23/21 16:00 Room Air 06/23/21 15:00 102 20 115/60 98 Room Air 06/23/21 14:00 104 18 94/64 99 Room Air 06/23/21 13:00 114 18 119/67 100 Room Air 06/23/21 12:35 136 104/68 06/23/21 12:00 98.1 104 20 104/64 100 Room Air 98.1 06/23/21 12:00 Room Air 06/23/21 11:00 114 18 95/81 100 Room Air I & O Intake and Output 06/24/21 07:00 Intake Total 0 ml Output Total 1425 ml Balance -1425 ml Other 0 ml Output Urine Total 1425 ml PHYSICAL EXAM: Physical Exam: General: confused Eyes: conjunctiva anicteric, eyes full range of motion ENT: moist oral mucosa, normal dentition Neck: Trachea midline, no masses Respiratory: unlabored breathing, not using accessory muscles, no crackles or wheezes Abdomen: nontender, nondistended, no hepatosplenomegaly, no masses Skin: no rashes or skin lesions on visualized skin Psych: confused : martin catheter with clear yellow urine LABS: Laboratory Tests Test 06/21/21 19:11 06/21/21 19:20 06/21/21 19:44 06/21/21 20:28 White Blood Count 16.2 x10^3/uL (4.0-11.0) Red Blood Count 4.43 x10^6/uL (4.30-5.70) Hemoglobin 14.3 g/dL (13.0-17.5) Hematocrit 43.9 % (39.0-53.0) Mean Corpuscular Volume 99 fL (79-100) Mean Corpuscular Hemoglobin 32 pg (25-35) Mean Corpuscular Hemoglobin Concent 33 g/dL (31-37) Red Cell Distribution Width 15.1 % (11.5-14.5) Platelet Count 58 x10^3/uL (140-400) Neutrophils (%) (Auto) 93 % (31-73) Lymphocytes (%) (Auto) 2 % (24-48) Monocytes (%) (Auto) 5 % (0-9) Eosinophils (%) (Auto) 0 % (0-3) Basophils (%) (Auto) 0 % (0-3) Neutrophils # (Auto) 15.0 x10^3/uL (1.8-7.7) Lymphocytes # (Auto) 0.3 x10^3/uL (1.0-4.8) Monocytes # (Auto) 0.8 x10^3/uL (0.0-1.1) Eosinophils # (Auto) 0.0 x10^3/uL (0.0-0.7) Basophils # (Auto) 0.1 x10^3/uL (0.0-0.2) Segmented Neutrophils % 93 % (35-66) Band Neutrophils % 4 % (0-9) Lymphocytes % 2 % (24-48) Monocytes % 1 % (0-10) Platelet Estimate Decreased (ADEQUATE) Brianna Cells Present Prothrombin Time 33.4 SEC (11.7-14.0) Prothromb Time International Ratio 3.4 (0.8-1.1) Activated Partial Thromboplast Time 38 SEC (24-38) Sodium Level 143 mmol/L (136-145) Potassium Level 5.6 mmol/L (3.5-5.1) Chloride Level 103 mmol/L (98-107) Carbon Dioxide Level 13 mmol/L (21-32) Anion Gap 27 (6-14) Blood Urea Nitrogen 106 mg/dL (8-26) Creatinine 3.0 mg/dL (0.7-1.3) Estimated GFR (Cockcroft-Gault) 20.1 BUN/Creatinine Ratio 35 (6-20) Glucose Level 446 mg/dL (70-99) Lactic Acid Level 10.2 mmol/L (0.4-2.0) Calcium Level 10.0 mg/dL (8.5-10.1) Total Bilirubin 3.2 mg/dL (0.2-1.0) Aspartate Amino Transf (AST/SGOT) 2562 U/L (15-37) Alanine Aminotransferase (ALT/SGPT) 2035 U/L (16-63) Alkaline Phosphatase 161 U/L (46-116) Troponin I High Sensitivity 560 ng/L (4-75) AY-Kry-F-Type Natriuretic Peptide > 89507 pg/mL (0-449) Total Protein 7.2 g/dL (6.4-8.2) Albumin 4.3 g/dL (3.4-5.0) Albumin/Globulin Ratio 1.5 (1.0-1.7) Procalcitonin 0.45 ng/mL (0.00-0.10) Thyroid Stimulating Hormone (TSH) 2.367 uIU/mL (0.358-3.74) Acetone Level Neg (NEG) Urine Collection Type Unknown Urine Color (Auto) Yellow Urine Turbidity Clear Urine pH (Auto) 5.0 (<5.0-8.0) Urine Specific [place] 1.027 (1.000-1.030) Urine Protein (Auto) 30 mg/dL (Negative) Urine Glucose (Auto)(UA) >=1000 mg/dL (Negative) Urine Ketones (Auto) Negative mg/dL (Negative) Urine Blood (Auto) Negative (Negative) Urine Nitrite Negative (Negative) Urine Bilirubin (Auto) Negative (Negative) Urine Urobilinogen (Auto) Normal mg/dL (Normal) Urine Leukocyte Esterase (Auto) Negative (Negative) Urine RBC 0 /HPF (0-2) Urine WBC 5-10 /HPF (0-4) Urine Squamous Epithelial Cells Few /LPF Urine Bacteria 0 /HPF (0-FEW) Urine Hyaline Casts Moderate /HPF Urine Mucus Slight /LPF O2 Saturation 99 % (92-99) Arterial Blood pH 7.40 (7.35-7.45) Arterial Blood pCO2 at Patient Temp 18 mmHg (35-46) Arterial Blood pO2 at Patient Temp 182 mmHg (65-108) Arterial Blood HCO3 11 mmol/L (21-28) Arterial Blood Base Excess -11 mmol/L (-3-3) FiO2 32 Influenza Type A Antigen Negative (NEGATIVE) Influenza Type B Antigen Negative (NEGATIVE) SARS-CoV-2 Antigen (Rapid) Negative (NEGATIVE) Test 06/21/21 22:33 06/22/21 04:00 06/22/21 17:23 06/23/21 04:40 Lactic Acid Level 4.8 mmol/L (0.4-2.0) Troponin I High Sensitivity 644 ng/L (4-75) 1011 ng/L (4-75) White Blood Count 12.8 x10^3/uL (4.0-11.0) 10.1 x10^3/uL (4.0-11.0) Red Blood Count 3.89 x10^6/uL (4.30-5.70) 3.96 x10^6/uL (4.30-5.70) Hemoglobin 12.5 g/dL (13.0-17.5) 12.8 g/dL (13.0-17.5) Hematocrit 37.5 % (39.0-53.0) 38.7 % (39.0-53.0) Mean Corpuscular Volume 96 fL (79-100) 98 fL (79-100) Mean Corpuscular Hemoglobin 32 pg (25-35) 32 pg (25-35) Mean Corpuscular Hemoglobin Concent 33 g/dL (31-37) 33 g/dL (31-37) Red Cell Distribution Width 14.5 % (11.5-14.5) 15.1 % (11.5-14.5) Platelet Count 46 x10^3/uL (140-400) 48 x10^3/uL (140-400) Neutrophils (%) (Auto) 93 % (31-73) Lymphocytes (%) (Auto) 3 % (24-48) Monocytes (%) (Auto) 4 % (0-9) Eosinophils (%) (Auto) 0 % (0-3) Basophils (%) (Auto) 0 % (0-3) Neutrophils # (Auto) 11.9 x10^3/uL (1.8-7.7) Lymphocytes # (Auto) 0.4 x10^3/uL (1.0-4.8) Monocytes # (Auto) 0.6 x10^3/uL (0.0-1.1) Eosinophils # (Auto) 0.0 x10^3/uL (0.0-0.7) Basophils # (Auto) 0.0 x10^3/uL (0.0-0.2) Prothrombin Time 31.4 SEC (11.7-14.0) Prothromb Time International Ratio 3.1 (0.8-1.1) Heparin Anti-Xa Act, Unfractionated 0.21 IU/mL (0.30-0.70) Sodium Level 147 mmol/L (136-145) Potassium Level 4.1 mmol/L (3.5-5.1) Chloride Level 110 mmol/L (98-107) Carbon Dioxide Level 19 mmol/L (21-32) Anion Gap 18 (6-14) Blood Urea Nitrogen 105 mg/dL (8-26) Creatinine 2.7 mg/dL (0.7-1.3) Estimated GFR (Cockcroft-Gault) 22.7 BUN/Creatinine Ratio 39 (6-20) Glucose Level 308 mg/dL (70-99) Calcium Level 8.6 mg/dL (8.5-10.1) Total Bilirubin 2.2 mg/dL (0.2-1.0) Aspartate Amino Transf (AST/SGOT) 2166 U/L (15-37) Alanine Aminotransferase (ALT/SGPT) 1618 U/L (16-63) Alkaline Phosphatase 117 U/L (46-116) Creatine Kinase 323 U/L (39-308) Total Protein 5.4 g/dL (6.4-8.2) Albumin 3.3 g/dL (3.4-5.0) Albumin/Globulin Ratio 1.6 (1.0-1.7) Hepatitis A IgM Antibody Nonreactive (Nonreactive) Hepatitis B Surface Antigen Nonreactive (Nonreactive) Hepatitis B Core IgM Antibody Nonreactive (Nonreactive) Hepatitis C IgG Antibody Nonreactive (Nonreactive) Glucose (Fingerstick) 336 mg/dL (70-99) Test 06/23/21 04:45 06/23/21 08:58 06/23/21 10:53 06/23/21 18:13 Sodium Level 151 mmol/L (136-145) Potassium Level 2.9 mmol/L (3.5-5.1) Chloride Level 112 mmol/L (98-107) Carbon Dioxide Level 19 mmol/L (21-32) Anion Gap 20 (6-14) Blood Urea Nitrogen 85 mg/dL (8-26) Creatinine 1.9 mg/dL (0.7-1.3) Estimated GFR (Cockcroft-Gault) 34.0 Glucose Level 406 mg/dL (70-99) Calcium Level 8.0 mg/dL (8.5-10.1) Total Bilirubin 2.1 mg/dL (0.2-1.0) Direct Bilirubin 1.1 mg/dL (0.0-0.2) Aspartate Amino Transf (AST/SGOT) 499 U/L (15-37) Alanine Aminotransferase (ALT/SGPT) 1158 U/L (16-63) Alkaline Phosphatase 111 U/L (46-116) Total Protein 5.0 g/dL (6.4-8.2) Albumin 2.7 g/dL (3.4-5.0) Glucose (Fingerstick) 337 mg/dL (70-99) 358 mg/dL (70-99) Prothrombin Time 23.2 SEC (11.7-14.0) Prothromb Time International Ratio 2.1 (0.8-1.1) Magnesium Level 2.2 mg/dL (1.8-2.4) Test 06/23/21 21:11 06/24/21 04:00 Glucose (Fingerstick) 268 mg/dL (70-99) White Blood Count 9.9 x10^3/uL (4.0-11.0) Red Blood Count 4.25 x10^6/uL (4.30-5.70) Hemoglobin 13.9 g/dL (13.0-17.5) Hematocrit 41.2 % (39.0-53.0) Mean Corpuscular Volume 97 fL (79-100) Mean Corpuscular Hemoglobin 33 pg (25-35) Mean Corpuscular Hemoglobin Concent 34 g/dL (31-37) Red Cell Distribution Width 15.2 % (11.5-14.5) Platelet Count 43 x10^3/uL (140-400) Sodium Level 153 mmol/L (136-145) Potassium Level 3.1 mmol/L (3.5-5.1) Chloride Level 119 mmol/L (98-107) Carbon Dioxide Level 23 mmol/L (21-32) Anion Gap 11 (6-14) Blood Urea Nitrogen 65 mg/dL (8-26) Creatinine 1.5 mg/dL (0.7-1.3) Estimated GFR (Cockcroft-Gault) 44.7 BUN/Creatinine Ratio 43 (6-20) Glucose Level 301 mg/dL (70-99) Calcium Level 7.9 mg/dL (8.5-10.1) Total Bilirubin 2.3 mg/dL (0.2-1.0) Aspartate Amino Transf (AST/SGOT) 329 U/L (15-37) Alanine Aminotransferase (ALT/SGPT) 963 U/L (16-63) Alkaline Phosphatase 112 U/L (46-116) Total Protein 5.1 g/dL (6.4-8.2) Albumin 2.6 g/dL (3.4-5.0) Albumin/Globulin Ratio 1.0 (1.0-1.7) Microbiology 06/21/21 Urine Culture - Final, Complete 06/21/21 Blood Culture - Preliminary, Resulted NO GROWTH AFTER 2 DAYS MEDICATIONS: Current Medications Medications (Trade) Dose Ordered Sig/Susy Start Time Stop Time Status Last Admin Dose Admin Acetaminophen (Tylenol) 650 mg PRN Q4HRS PRN 06/21/21 22:15 06/22/21 22:14 DC Aspirin (Aspirin Chewable) 324 mg 1X ONCE 06/21/21 20:30 06/21/21 20:31 DC 06/21/21 20:40 324 MG Daptomycin 410 mg/ Sodium Chloride 50 ml @ 100 mls/hr Q48H 06/22/21 16:00 06/23/21 15:52 DC 06/22/21 15:34 100 MLS/HR Dextrose (Dextrose 50%-Water Syringe) 12.5 gm PRN Q15MIN PRN 06/23/21 09:15 Dextrose (Iv Dextrose 5%) 250 ml PRN Q15MIN PRN 06/23/21 09:15 Diltiazem HCl (Cardizem Iv Push) 15 mg 1X ONCE 06/21/21 19:30 06/21/21 19:53 DC 06/21/21 19:58 15 MG Diltiazem HCl 125 mg/Dextrose 125 ml @ 5 mls/hr CONT PRN PRN 06/21/21 22:15 06/22/21 10:10 DC 06/21/21 22:32 5 MLS/HR Diltiazem HCl 125 mg/Sodium Chloride 125 ml @ 5 mls/hr CONT PRN 06/21/21 22:15 06/21/21 22:10 DC Fentanyl Citrate (Fentanyl 2ml Vial) 25 mcg PRN Q2HR PRN 06/22/21 18:30 06/24/21 01:50 25 MCG Furosemide (Lasix) 40 mg 1X ONCE 06/21/21 20:30 06/21/21 20:31 DC 06/21/21 20:39 40 MG Heparin Sodium (Porcine) (Heparin Sodium) 25 UNITS / KG PRN Q6HRS PRN 06/22/21 08:45 06/23/21 16:11 DC Heparin Sodium/ Dextrose 250 ml @ 8.16 mls/hr CONT PRN 06/22/21 08:45 06/23/21 16:12 DC Info (Anti-Coagulation Monitoring By Pharmacy) 1 each PRN DAILY PRN 06/21/21 21:15 06/22/21 08:42 1 EACH Insulin Human Lispro (HumaLOG) 0-7 UNITS TIDWMEALS 06/23/21 12:00 06/24/21 08:13 4 UNITS Linezolid/Dextrose 300 ml @ 300 mls/hr Q12HR 06/22/21 14:00 06/24/21 08:12 300 MLS/HR Metoprolol Tartrate (Lopressor Vial) 5 mg Q6HRS 06/22/21 12:00 06/24/21 05:54 5 MG Ondansetron HCl (Zofran) 4 mg PRN Q8HRS PRN 06/21/21 22:15 06/22/21 22:14 DC Piperacillin Sod/ Tazobactam Sod (Zosyn Per Pharmacy) 1 each PRN DAILY PRN 06/21/21 22:45 Piperacillin Sod/ Tazobactam Sod 2.25 gm/Sodium Chloride 50 ml @ 100 mls/hr Q6HRS 06/22/21 06:00 06/24/21 05:55 100 MLS/HR Piperacillin Sod/ Tazobactam Sod 4.5 gm/Dextrose 100 ml @ 200 mls/hr 1X ONCE 06/21/21 20:00 06/21/21 20:29 DC 06/21/21 20:23 200 MLS/HR Piperacillin Sod/ Tazobactam Sod 4.5 gm/Sodium Chloride 100 ml @ 200 mls/hr 1X ONCE 06/21/21 20:00 06/21/21 19:55 DC Potassium Chloride/Water 100 ml @ 100 mls/hr Q1H 06/24/21 08:30 06/24/21 12:29 06/24/21 10:19 100 MLS/HR Sodium Chloride 1,000 ml @ 85 mls/hr [id number] 06/21/21 22:15 06/22/21 22:14 DC 06/22/21 20:36 85 MLS/HR Vancomycin HCl 1.5 gm/Sodium Chloride 500 ml @ 250 mls/hr 1X ONCE 06/21/21 21:00 06/21/21 22:59 DC 06/21/21 20:32 250 MLS/HR ASSESSMENT & PLAN ---Right hydronephrosis Difficult to verify as CT A/P did not show this, but abd US did. Cr has continued to improve since admission. Down to 1.5 from 3. Martin catheter in place. Nursing to bladder scan to ensure adequate drainage. As creatinine is improving concern for hydronephrosis is low, reinforced by the fact that it was not seen on CT. D/w Dr Nicholson. Please call with urology questions. Problem List: Problems Medical Problems: (1) Acute metabolic encephalopathy Status: Acute (2) Acute urinary retention Status: Acute (3) Atrial fibrillation with rapid ventricular response Status: Acute (4) Cholestasis Status: Acute (5) Lactic acidemia Status: Acute (6) Metabolic acidosis Status: Acute (7) NSTEMI (non-ST elevated myocardial infarction) Status: Acute (8) Shock Status: Acute (9) Transaminasemia Status: Acute (10) Volume overload Status: Acute ELISA CUNHA WIRE TESTER Jun 24, 2021 10:44
--- NOTE | 2021-06-24 11:26 | PDOC ---
[facility] PROGRESS NOTE Date of Service DOS: DATE: 06/24/21 TIME: 11:24 Chief Complaint Chief Complaint Possible sepsis with multiorgan failure Atrial fibrillation with rapid ventricular response, renal failure, azotemia, hyperkalemia, transaminitis, elevated troponin, leukocytosis. History of the following; Hypertension, hyperlipidemia, chronic anticoagulation, possible CHF, AFib. History of Present Illness History of Present Illness 06/24/2021 Patient seen and examined in the ICU Discussed with RN Chart reviewed He remains pleasantly confused 06/23/2021 Patient seen and examined in ICU Discussed with RN Chart reviewed He is in mitts and pleasantly confused Potassium low at 2.9 we ordered 80 Sugars running a little high we ordered a sliding scale insulin Discussed with RN Discussed with case management Chart reviewed 06/22/2021 Patient seen and examined in the ICU He is resting with no apparent distress He is on IV Zosyn and IV Cardizem drip Heparin is hanging but we just turned it off this morning Discussed with RN Discussed with case management Chart reviewed He remains critically ill Vitals/I&O Vitals/I&O: Vital Signs Date Time Temp Pulse Resp B/P (MAP) Pulse Ox O2 Delivery O2 Flow Rate FiO2 06/24/21 08:00 97.9 91 18 113/68 100 Room Air 97.9 06/24/21 02:20 2.0 I & O 06/23/21 06/23/21 06/24/21 15:00 23:00 07:00 Intake Total 0 ml Output Total 770 ml 380 ml 275 ml Balance -770 ml -380 ml -275 ml Physical Exam Physical Exam: GENERAL: Chronically ill-appearing male, somewhat confused. Speech is garbled, wearing mittens on O2 by nasal cannula. HEENT: Normocephalic, atraumatic. Anicteric. Pupils equal, reactive. Oral mucosa moist, few teeth. NECK: Supple. LUNGS: Decreased breath sounds at the bases. No rhonchi. HEART: S1, S2, irregular, systolic murmur. ABDOMEN: Soft, mildly distended, mild discomfort on deep palpation. No rebound or guarding. EXTREMITIES: Bilateral lower extremity edema with warmth. Right third toe has hammertoe with small ulceration. DERMATOLOGIC: Warm, dry, no generalized rash. NEUROLOGIC: Confused, garbled speech. PSYCHIATRIC: Unable to assess, confused. MUSCULOSKELETAL: DJD. LABORATORY DATA: WBC 12.8-16.2, hemoglobin 12.5, hematocrit 37.5, platelets 46. Sodium 143, potassium 5.6, chloride 103, bicarbonate 13, BUN 106, creatinine 3.0, glucose 446. Lactate 4.8 from 10.2, total bilirubin 3.2, AST 2562, ALT 2035, alkaline phosphatase 161, albumin 4.3. UA, 5-10 wbc's, leukocyte esterase negative, acetone negative. Influenza screen negative. SARS-COVID negative. Hepatitis profile negative. DIAGNOSTIC: CT abdomen, chest and pelvis shows cardiomegaly, large amount of stool in the distal colon, correlate for constipation. Head CT as per above. Chest x-ray, no acute pulmonary process. MICRO: 1. Blood culture pending. 2. Urine culture pending. IMPRESSION: 1. Sepsis, likely cardiac with multiorgan failure. 2. Non-STEMI with an atrial fibrillation with rapid ventricular response. 3. Acute kidney injury. 4. Thrombocytopenia, coagulopathy, elevated liver functions, latter likely from sepsis. 5. History of nonischemic cardiomyopathy Takotsubo. 6. Acute hypoxic respiratory failure. 7. Leukocytosis and lactic acidosis. 8. Leg swelling with possible secondary cellulitis. 9. Encephalopathy, likely metabolic.CThead as above General: mild distress, Other (Nonverbal) Heart: Other (AFIB, 2/6 systolic murmur to LLS border) Lungs: Wheezing, Crackles Abdomen: Normal bowel sounds Extremities: Other (Bilateral LE pitting edema 4+) Skin: Other (He has chronic venous stasis and thin skin) Labs Labs: Laboratory Tests Test 06/23/21 18:13 06/23/21 21:11 06/24/21 04:00 Glucose (Fingerstick) 358 mg/dL (70-99) 268 mg/dL (70-99) White Blood Count 9.9 x10^3/uL (4.0-11.0) Red Blood Count 4.25 x10^6/uL (4.30-5.70) Hemoglobin 13.9 g/dL (13.0-17.5) Hematocrit 41.2 % (39.0-53.0) Mean Corpuscular Volume 97 fL (79-100) Mean Corpuscular Hemoglobin 33 pg (25-35) Mean Corpuscular Hemoglobin Concent 34 g/dL (31-37) Red Cell Distribution Width 15.2 % (11.5-14.5) Platelet Count 43 x10^3/uL (140-400) Sodium Level 153 mmol/L (136-145) Potassium Level 3.1 mmol/L (3.5-5.1) Chloride Level 119 mmol/L (98-107) Carbon Dioxide Level 23 mmol/L (21-32) Anion Gap 11 (6-14) Blood Urea Nitrogen 65 mg/dL (8-26) Creatinine 1.5 mg/dL (0.7-1.3) Estimated GFR (Cockcroft-Gault) 44.7 BUN/Creatinine Ratio 43 (6-20) Glucose Level 301 mg/dL (70-99) Calcium Level 7.9 mg/dL (8.5-10.1) Total Bilirubin 2.3 mg/dL (0.2-1.0) Aspartate Amino Transf (AST/SGOT) 329 U/L (15-37) Alanine Aminotransferase (ALT/SGPT) 963 U/L (16-63) Alkaline Phosphatase 112 U/L (46-116) Total Protein 5.1 g/dL (6.4-8.2) Albumin 2.6 g/dL (3.4-5.0) Albumin/Globulin Ratio 1.0 (1.0-1.7) Assessment and Plan Assessmemt and Plan Problems Medical Problems: (1) Acute metabolic encephalopathy Status: Acute (2) Acute urinary retention Status: Acute (3) Atrial fibrillation with rapid ventricular response Status: Acute (4) Cholestasis Status: Acute (5) Lactic acidemia Status: Acute (6) Metabolic acidosis Status: Acute (7) NSTEMI (non-ST elevated myocardial infarction) Status: Acute (8) Shock Status: Acute (9) Transaminasemia Status: Acute (10) Volume overload Status: Acute Possible sepsis with multiorgan failure Hypokalemia Hyperglycemia Metabolic cephalopathy Atrial fibrillation with rapid ventricular response, renal failure, azotemia, hyperkalemia, transaminitis, elevated troponin, leukocytosis. History of the following; Hypertension, hyperlipidemia, chronic anticoagulation, possible CHF, AFib. Plan ICU monitoring Continue the IV Zosyn Mitts for patient safety Sliding-scale insulin Electrolyte protocol We have multiple consults following including cardiology pulmonary nephrology infectious disease and GI Trend labs Home meds when possible DVT prophylaxis Full code Appreciate subspecialist input Prognosis long-term extremely guarded Comment Review of Relevant I have reviewed the following items scot (where applicable) has been applied. Medications: Current Medications Medications (Trade) Dose Ordered Sig/Susy Route PRN Reason Start Time Stop Time Status Last Admin Dose Admin Insulin Human Lispro (HumaLOG) 0-7 UNITS TIDWMEALS SQ 06/23/21 12:00 06/24/21 08:13 Potassium Chloride/Water 100 ml @ 100 mls/hr Q1H IV 06/24/21 08:30 06/24/21 12:29 06/24/21 10:19 Justifications for Admission Other Justification VANESSA HENAO III DO Jun 24, 2021 11:26
[2021-06-24 12:00] VITALS: BP 86/61
--- NOTE | 2021-06-24 13:52 | PDOC ---
PROGRESS NOTES Date of Service DATE: 06/24/21 TIME: 13:49 Subjective Subjective SEEN IN FOLLOW UP OF ARF Objective Objective Vital Signs Date Time Temp Pulse Resp B/P (MAP) Pulse Ox O2 Delivery O2 Flow Rate FiO2 06/24/21 12:00 97.9 112 16 86/61 98 Room Air 97.9 06/24/21 02:20 2.0 Intake and Output 06/24/21 07:00 Intake Total 0 ml Output Total 1425 ml Balance -1425 ml Other 0 ml Output Urine Total 1425 ml Physical Exam Abdomen: Normal bowel sounds, Soft, No tenderness, No hepatosplenomegaly, No masses Heart: Regular rate, Normal S1, Normal S2, No murmurs, Gallops Extremities: Other (BLE EDEMA 1+) General: Other (CONFUSED AND DROWSEY) Lungs: Clear to auscultation, Normal air movement Psych/Mental Status: Other (CONFUSED) Diagnosis RENAL FAILURE: Acute, Other (DEHYDRATION AND HYPERNATREMIA) Assessment Assessment Problems Medical Problems: (1) Acute metabolic encephalopathy Status: Acute (2) Acute urinary retention Status: Acute (3) Atrial fibrillation with rapid ventricular response Status: Acute (4) Cholestasis Status: Acute (5) Lactic acidemia Status: Acute (6) Metabolic acidosis Status: Acute (7) NSTEMI (non-ST elevated myocardial infarction) Status: Acute (8) Shock Status: Acute (9) Transaminasemia Status: Acute (10) Volume overload Status: Acute Plan Plan of Care RENAL FUNCTION IS BETTER. WILL ADD 1/4 NS FOR HYPERNATREMIA. HE HAS LVEF , 30 %. PROGNOSIS IS POOR Comment Review of Relevant I have reviewed the following items scot (where applicable) has been applied. Labs Laboratory Tests Test 06/22/21 17:23 06/23/21 04:40 06/23/21 04:45 06/23/21 08:58 Glucose (Fingerstick) 336 mg/dL (70-99) 337 mg/dL (70-99) White Blood Count 10.1 x10^3/uL (4.0-11.0) Red Blood Count 3.96 x10^6/uL (4.30-5.70) Hemoglobin 12.8 g/dL (13.0-17.5) Hematocrit 38.7 % (39.0-53.0) Mean Corpuscular Volume 98 fL (79-100) Mean Corpuscular Hemoglobin 32 pg (25-35) Mean Corpuscular Hemoglobin Concent 33 g/dL (31-37) Red Cell Distribution Width 15.1 % (11.5-14.5) Platelet Count 48 x10^3/uL (140-400) Sodium Level 151 mmol/L (136-145) Potassium Level 2.9 mmol/L (3.5-5.1) Chloride Level 112 mmol/L (98-107) Carbon Dioxide Level 19 mmol/L (21-32) Anion Gap 20 (6-14) Blood Urea Nitrogen 85 mg/dL (8-26) Creatinine 1.9 mg/dL (0.7-1.3) Estimated GFR (Cockcroft-Gault) 34.0 Glucose Level 406 mg/dL (70-99) Calcium Level 8.0 mg/dL (8.5-10.1) Total Bilirubin 2.1 mg/dL (0.2-1.0) Direct Bilirubin 1.1 mg/dL (0.0-0.2) Aspartate Amino Transf (AST/SGOT) 499 U/L (15-37) Alanine Aminotransferase (ALT/SGPT) 1158 U/L (16-63) Alkaline Phosphatase 111 U/L (46-116) Total Protein 5.0 g/dL (6.4-8.2) Albumin 2.7 g/dL (3.4-5.0) Test 06/23/21 10:53 06/23/21 18:13 06/23/21 21:11 06/24/21 04:00 Prothrombin Time 23.2 SEC (11.7-14.0) Prothromb Time International Ratio 2.1 (0.8-1.1) Magnesium Level 2.2 mg/dL (1.8-2.4) Glucose (Fingerstick) 358 mg/dL (70-99) 268 mg/dL (70-99) White Blood Count 9.9 x10^3/uL (4.0-11.0) Red Blood Count 4.25 x10^6/uL (4.30-5.70) Hemoglobin 13.9 g/dL (13.0-17.5) Hematocrit 41.2 % (39.0-53.0) Mean Corpuscular Volume 97 fL (79-100) Mean Corpuscular Hemoglobin 33 pg (25-35) Mean Corpuscular Hemoglobin Concent 34 g/dL (31-37) Red Cell Distribution Width 15.2 % (11.5-14.5) Platelet Count 43 x10^3/uL (140-400) Sodium Level 153 mmol/L (136-145) Potassium Level 3.1 mmol/L (3.5-5.1) Chloride Level 119 mmol/L (98-107) Carbon Dioxide Level 23 mmol/L (21-32) Anion Gap 11 (6-14) Blood Urea Nitrogen 65 mg/dL (8-26) Creatinine 1.5 mg/dL (0.7-1.3) Estimated GFR (Cockcroft-Gault) 44.7 BUN/Creatinine Ratio 43 (6-20) Glucose Level 301 mg/dL (70-99) Calcium Level 7.9 mg/dL (8.5-10.1) Total Bilirubin 2.3 mg/dL (0.2-1.0) Aspartate Amino Transf (AST/SGOT) 329 U/L (15-37) Alanine Aminotransferase (ALT/SGPT) 963 U/L (16-63) Alkaline Phosphatase 112 U/L (46-116) Total Protein 5.1 g/dL (6.4-8.2) Albumin 2.6 g/dL (3.4-5.0) Albumin/Globulin Ratio 1.0 (1.0-1.7) Test 06/24/21 11:48 Glucose (Fingerstick) 210 mg/dL (70-99) Laboratory Tests Test 06/23/21 18:13 06/23/21 21:11 06/24/21 04:00 06/24/21 11:48 Glucose (Fingerstick) 358 mg/dL (70-99) 268 mg/dL (70-99) 210 mg/dL (70-99) White Blood Count 9.9 x10^3/uL (4.0-11.0) Red Blood Count 4.25 x10^6/uL (4.30-5.70) Hemoglobin 13.9 g/dL (13.0-17.5) Hematocrit 41.2 % (39.0-53.0) Mean Corpuscular Volume 97 fL (79-100) Mean Corpuscular Hemoglobin 33 pg (25-35) Mean Corpuscular Hemoglobin Concent 34 g/dL (31-37) Red Cell Distribution Width 15.2 % (11.5-14.5) Platelet Count 43 x10^3/uL (140-400) Sodium Level 153 mmol/L (136-145) Potassium Level 3.1 mmol/L (3.5-5.1) Chloride Level 119 mmol/L (98-107) Carbon Dioxide Level 23 mmol/L (21-32) Anion Gap 11 (6-14) Blood Urea Nitrogen 65 mg/dL (8-26) Creatinine 1.5 mg/dL (0.7-1.3) Estimated GFR (Cockcroft-Gault) 44.7 BUN/Creatinine Ratio 43 (6-20) Glucose Level 301 mg/dL (70-99) Calcium Level 7.9 mg/dL (8.5-10.1) Total Bilirubin 2.3 mg/dL (0.2-1.0) Aspartate Amino Transf (AST/SGOT) 329 U/L (15-37) Alanine Aminotransferase (ALT/SGPT) 963 U/L (16-63) Alkaline Phosphatase 112 U/L (46-116) Total Protein 5.1 g/dL (6.4-8.2) Albumin 2.6 g/dL (3.4-5.0) Albumin/Globulin Ratio 1.0 (1.0-1.7) Microbiology 06/21/21 Urine Culture - Final, Complete 06/21/21 Blood Culture - Preliminary, Resulted NO GROWTH AFTER 2 DAYS Medications Current Medications Vancomycin HCl 1.5 gm/Sodium Chloride 500 ml @ 250 mls/hr 1X ONCE IV Last administered on 06/21/21at 20:32; Start 06/21/21 at 21:00; Stop 06/21/21 at 22:59; Status DC Piperacillin Sod/ Tazobactam Sod 4.5 gm/Sodium Chloride 100 ml @ 200 mls/hr 1X ONCE IV ; Start 06/21/21 at 20:00; Stop 06/21/21 at 19:55; Status DC Diltiazem HCl (Cardizem Iv Push) 15 mg 1X ONCE IVP Last administered on 06/21/21at 19:58; Start 06/21/21 at 19:30; Stop 06/21/21 at 19:53; Status DC Piperacillin Sod/ Tazobactam Sod 4.5 gm/Dextrose 100 ml @ 200 mls/hr 1X ONCE IV Last administered on 06/21/21at 20:23; Start 06/21/21 at 20:00; Stop 06/21/21 at 20:29; Status DC Insulin Human Lispro (HumaLOG) 10 units 1X ONCE SQ Last administered on 06/21/21at 20:33; Start 06/21/21 at 20:30; Stop 06/21/21 at 20:31; Status DC Furosemide (Lasix) 40 mg 1X ONCE IVP Last administered on 06/21/21at 20:39; Start 06/21/21 at 20:30; Stop 06/21/21 at 20:31; Status DC Sodium Chloride 250 ml @ 500 mls/hr 1X ONCE IV Last administered on 06/21/21at 20:41; Start 06/21/21 at 20:30; Stop 06/21/21 at 20:59; Status DC Aspirin (Aspirin Chewable) 324 mg 1X ONCE PO Last administered on 06/21/21at 20:40; Start 06/21/21 at 20:30; Stop 06/21/21 at 20:31; Status DC Sodium Chloride 1,000 ml @ 1,000 mls/hr 1X ONCE IV Last administered on 06/21/21at 21:53; Start 06/21/21 at 21:30; Stop 06/21/21 at 22:29; Status DC Heparin Sodium (Porcine) (Heparin Sodium) 3,900 unit 1X ONCE IV Last administered on 06/21/21at 21:51; Start 06/21/21 at 21:00; Stop 06/21/21 at 21:02; Status DC Heparin Sodium/ Dextrose 250 ml @ 7.8 mls/hr CONT PRN IV PER PROTOCOL Last administered on 06/21/21at 21:52; Start 06/21/21 at 21:00; Stop 06/22/21 at 08:38; Status DC Heparin Sodium (Porcine) (Heparin Sodium) 1,650 unit PRN Q6HRS PRN IV FOR UFH LEVEL LESS THAN 0.2; Start 06/21/21 at 21:00; Stop 06/22/21 at 08:39; Status DC Info (Anti-Coagulation Monitoring By Pharmacy) 1 each PRN DAILY PRN MC PER PROTOCOL Last administered on 06/22/21at 08:42; Start 06/21/21 at 21:15 Sodium Chloride 500 ml @ 500 mls/hr 1X ONCE IV Last administered on 06/21/21at 22:00; Start 06/21/21 at 22:00; Stop 06/21/21 at 22:59; Status DC Diltiazem HCl 125 mg/Sodium Chloride 125 ml @ 5 mls/hr CONT PRN IV PER PROTOCOL; Start 06/21/21 at 22:15; Stop 06/21/21 at 22:10; Status DC Ondansetron HCl (Zofran) 4 mg PRN Q8HRS PRN IVP NAUSEA/VOMITING 1ST CHOICE; Start 06/21/21 at 22:15; Stop 06/22/21 at 22:14; Status DC Sodium Chloride 1,000 ml @ 85 mls/hr [id number] IV Last administered on 06/22/21at 20:36; Start 06/21/21 at 22:15; Stop 06/22/21 at 22:14; Status DC Acetaminophen (Tylenol) 650 mg PRN Q4HRS PRN PO FEVER > 100.3'F; Start 06/21/21 at 22:15; Stop 06/22/21 at 22:14; Status DC Diltiazem HCl 125 mg/Dextrose 125 ml @ 5 mls/hr CONT PRN PRN IV PER PROTOCOL Last administered on 06/21/21at 22:32; Start 06/21/21 at 22:15; Stop 06/22/21 at 10:10; Status DC Piperacillin Sod/ Tazobactam Sod (Zosyn Per Pharmacy) 1 each PRN DAILY PRN MC SEE COMMENTS; Start 06/21/21 at 22:45 Piperacillin Sod/ Tazobactam Sod 2.25 gm/Sodium Chloride 50 ml @ 100 mls/hr Q6HRS IV Last administered on 06/24/21at 11:55; Start 06/22/21 at 06:00 Heparin Sodium/ Dextrose 250 ml @ 8.16 mls/hr CONT PRN IV PER PROTOCOL; Start 06/22/21 at 08:45; Stop 06/23/21 at 16:12; Status DC Heparin Sodium (Porcine) (Heparin Sodium) 25 UNITS / KG PRN Q6HRS PRN IV FOR PTT < 40; Start 06/22/21 at 08:45; Stop 06/23/21 at 16:11; Status DC Metoprolol Tartrate (Lopressor Vial) 5 mg Q6HRS IVP Last administered on 06/24/21at 11:52; Start 06/22/21 at 12:00 Linezolid/Dextrose 300 ml @ 300 mls/hr Q12HR IV Last administered on 06/24/21at 08:12; Start 06/22/21 at 14:00 Daptomycin 410 mg/ Sodium Chloride 50 ml @ 100 mls/hr Q48H IV Last administered on 06/22/21at 15:34; Start 06/22/21 at 16:00; Stop 06/23/21 at 15:52; Status DC Fentanyl Citrate (Fentanyl 2ml Vial) 25 mcg PRN Q2HR PRN IVP PAIN Last administered on 06/24/21at 01:50; Start 06/22/21 at 18:30 Insulin Human Lispro (HumaLOG) 0-7 UNITS TIDWMEALS SQ Last administered on 06/24/21at 11:50; Start 06/23/21 at 12:00 Dextrose (Dextrose 50%-Water Syringe) 12.5 gm PRN Q15MIN PRN IV SEE COMMENTS; Start 06/23/21 at 09:15 Dextrose (Iv Dextrose 5%) 250 ml PRN Q15MIN PRN IV SEE COMMENTS; Start 06/23/21 at 09:15 Potassium Chloride/Water 100 ml @ 100 mls/hr Q1H IV Last administered on 06/23/21at 18:03; Start 06/23/21 at 10:00; Stop 06/23/21 at 17:59; Status DC Potassium Chloride/Water 100 ml @ 100 mls/hr Q1H IV Last administered on 06/24/21at 11:49; Start 06/24/21 at 08:30; Stop 06/24/21 at 12:29; Status DC Active Scripts Active Reported Magnesium Chloride 70 Mg Tablet.dr 70 Mg PO Hydrochlorothiazide Tablet (Hydrochlorothiazide) 25 Mg Tablet 25 Mg PO DAILY Lasix (Furosemide) 20 Mg Tablet 20 Mg PO BID Eliquis (Apixaban) 5 Mg Tablet 5 Mg PO Metformin Hcl 1,000 Mg Tablet 1,000 Mg PO BIDWMEALS Aspirin 81 Mg Tab.chew 1 Tab PO DAILY Cardizem Cd (Diltiazem Hcl) 180 Mg Cap.er.24h 1 Cap PO DAILY Cardizem Tablet (Diltiazem Hcl) 60 Mg Tablet 60 Mg PO QID Flomax (Tamsulosin Hcl) 0.4 Mg Cap.er.24h 1 Cap PO DAILY Simvastatin 80 Mg Tablet 1 Tab PO QHS 30 Days Timolol Maleate 5 Ml Drops 1 Drop OD BID Xalatan (Latanoprost) 2.5 Ml Drops 1 Drop OU QHS Vitals/I & O Vital Sign - Last 24 Hours 06/23/21 06/23/21 06/23/21 06/23/21 14:00 15:00 16:00 16:00 Temp 98.2 98.2 Pulse 104 102 104 Resp 18 20 25 B/P (MAP) 94/64 115/60 95/73 Pulse Ox 99 98 98 O2 Delivery Room Air Room Air Room Air Room Air 06/23/21 06/23/21 06/23/21 06/23/21 17:00 18:00 18:18 19:38 Pulse 106 95 128 Resp 30 24 20 B/P (MAP) 108/63 103/74 103/74 Pulse Ox 100 100 100 O2 Delivery Room Air Room Air Room Air O2 Flow Rate 2.0 06/23/21 06/23/21 06/23/21 06/24/21 20:00 20:00 20:08 00:00 Temp 97.2 97.9 97.2 97.9 Pulse 107 95 Resp 20 22 B/P (MAP) 87/62 89/77 Pulse Ox 100 100 100 O2 Delivery Room Air Room Air Room Air Room Air O2 Flow Rate 2.0 06/24/21 06/24/21 06/24/21 06/24/21 00:03 01:50 02:20 04:00 Temp 98.0 98.0 Pulse 107 78 Resp 22 B/P (MAP) 89/77 111/72 Pulse Ox 100 100 100 O2 Delivery Room Air Room Air Room Air O2 Flow Rate 2.0 2.0 06/24/21 06/24/21 06/24/21 06/24/21 05:54 08:00 08:00 11:52 Temp 97.9 97.9 Pulse 110 91 84 Resp 18 B/P (MAP) 97/66 113/68 86/61 Pulse Ox 100 O2 Delivery Room Air Room Air 06/24/21 12:00 Temp 97.9 97.9 Pulse 112 Resp 16 B/P (MAP) 86/61 Pulse Ox 98 O2 Delivery Room Air Intake and Output 06/23/21 06/23/21 06/24/21 15:00 23:00 07:00 Intake Total 0 ml Output Total 770 ml 380 ml 275 ml Balance -770 ml -380 ml -275 ml Justifications for Admission Other Justification Nutrition Consultation Dietary Evaluation: Recommendations by RD: Dietary education by RD, Increase Calorie Intake, Protein supplementation Comments: renal / ADA diet nepro tid if intake poor Expected Outcomes/Goals: to meet >75% est nutr needs Malnutrition Findings: Body Fat Depletion (Non Severe: Mod to Severe Weight Status: Underweight ANDREW KRUEGER MD Jun 24, 2021 13:52
[2021-06-24] MEDS: SODIUM CHLORIDE 23.4% 38.5 MEQ in IV STERILE WATER 1,000 ML IV SCH (14:16)
[2021-06-24 16:00] VITALS: BP 96/63
--- NOTE | 2021-06-24 16:25 | PDOC ---
Infectious Disease Note Subjective Subjective Pt is encephalopathic ROS ROS no n/v/d/sob Vital Sign Vital Signs Vital Signs Date Time Temp Pulse Resp B/P (MAP) Pulse Ox O2 Delivery O2 Flow Rate FiO2 06/24/21 16:00 98.0 120 18 96/63 96 Room Air 98.0 06/24/21 02:20 2.0 Physical Exam PHYSICAL EXAM GENERAL: Chronically ill-appearing male, somewhat confused. Speech is garbled, wearing mittens on O2 by nasal cannula. HEENT: Normocephalic, atraumatic. Anicteric. Pupils equal, reactive. Oral mucosa moist, few teeth. NECK: Supple. LUNGS: Decreased breath sounds at the bases. No rhonchi. HEART: S1, S2, irregular, systolic murmur. ABDOMEN: Soft, mildly distended, mild discomfort on deep palpation. No rebound or guarding. EXTREMITIES: Bilateral lower extremity edema with warmth. Right third toe has hammertoe with small ulceration. DERMATOLOGIC: Warm, dry, no generalized rash. NEUROLOGIC: Confused, garbled speech. PSYCHIATRIC: Unable to assess, confused. MUSCULOSKELETAL: DJD. LABORATORY DATA: WBC 12.8-16.2, hemoglobin 12.5, hematocrit 37.5, platelets 46. Sodium 143, potassium 5.6, chloride 103, bicarbonate 13, BUN 106, creatinine 3.0, glucose 446. Lactate 4.8 from 10.2, total bilirubin 3.2, AST 2562, ALT 2035, alkaline phosphatase 161, albumin 4.3. UA, 5-10 wbc's, leukocyte esterase negative, acetone negative. Influenza screen negative. SARS-COVID negative. Hepatitis profile negative. DIAGNOSTIC: CT abdomen, chest and pelvis shows cardiomegaly, large amount of stool in the distal colon, correlate for constipation. Head CT as per above. Chest x-ray, no acute pulmonary process. MICRO: 1. Blood culture pending. 2. Urine culture pending. IMPRESSION: 1. Sepsis, likely cardiac with multiorgan failure. 2. Non-STEMI with an atrial fibrillation with rapid ventricular response. 3. Acute kidney injury. 4. Thrombocytopenia, coagulopathy, elevated liver functions, latter likely from sepsis. 5. History of nonischemic cardiomyopathy Takotsubo. 6. Acute hypoxic respiratory failure. 7. Leukocytosis and lactic acidosis. 8. Leg swelling with possible secondary cellulitis. 9. Encephalopathy, likely metabolic.CThead as above Labs Lab Laboratory Tests Test 06/23/21 18:13 06/23/21 21:11 06/24/21 04:00 06/24/21 11:48 Glucose (Fingerstick) 358 mg/dL (70-99) 268 mg/dL (70-99) 210 mg/dL (70-99) White Blood Count 9.9 x10^3/uL (4.0-11.0) Red Blood Count 4.25 x10^6/uL (4.30-5.70) Hemoglobin 13.9 g/dL (13.0-17.5) Hematocrit 41.2 % (39.0-53.0) Mean Corpuscular Volume 97 fL (79-100) Mean Corpuscular Hemoglobin 33 pg (25-35) Mean Corpuscular Hemoglobin Concent 34 g/dL (31-37) Red Cell Distribution Width 15.2 % (11.5-14.5) Platelet Count 43 x10^3/uL (140-400) Sodium Level 153 mmol/L (136-145) Potassium Level 3.1 mmol/L (3.5-5.1) Chloride Level 119 mmol/L (98-107) Carbon Dioxide Level 23 mmol/L (21-32) Anion Gap 11 (6-14) Blood Urea Nitrogen 65 mg/dL (8-26) Creatinine 1.5 mg/dL (0.7-1.3) Estimated GFR (Cockcroft-Gault) 44.7 BUN/Creatinine Ratio 43 (6-20) Glucose Level 301 mg/dL (70-99) Calcium Level 7.9 mg/dL (8.5-10.1) Total Bilirubin 2.3 mg/dL (0.2-1.0) Aspartate Amino Transf (AST/SGOT) 329 U/L (15-37) Alanine Aminotransferase (ALT/SGPT) 963 U/L (16-63) Alkaline Phosphatase 112 U/L (46-116) Total Protein 5.1 g/dL (6.4-8.2) Albumin 2.6 g/dL (3.4-5.0) Albumin/Globulin Ratio 1.0 (1.0-1.7) Micro Microbiology 06/21/21 Urine Culture - Final, Complete 06/21/21 Blood Culture - Preliminary, Resulted NO GROWTH AFTER 1 DAY Objective Assessment 1. Sepsis, likely cardiac with multiorgan failure. 2. Non-STEMI with an atrial fibrillation with rapid ventricular response. 3. Acute kidney injury. 4. Thrombocytopenia, coagulopathy, elevated liver functions, latter likely from sepsis. 5. History of nonischemic cardiomyopathy Takotsubo. 6. Acute hypoxic respiratory failure. 7. Leukocytosis and lactic acidosis. 8. Leg swelling with possible secondary cellulitis. 9. Encephalopathy, likely metabolic.CThead as above Plan Plan of Care Recommendations Continue Zosyn Status post 1 dose of vancomycin. We will give Zyvox for now. Would like to avoid IV vancomycin due to SUNNY and daptomycin due to elevated CK Elevated lower extremity Follow-up Doppler venous ultrasound Monitor labs and cultures Continue supportive care Discussed with LATHA REYES,LUIS ALBERTO Parry MD Jun 24, 2021 16:25
[2021-06-24 20:00] VITALS: BP 107/63
[2021-06-25] VITALS: BP 104/57
[2021-06-25] MEDS: fentaNYL PF VIAL 100 MCG/2 ML VIAL IVP PRN ×2 (00:34→19:50)
[2021-06-25 04:00] VITALS: BP 97/57
[2021-06-25 04:15] LABS: CALCIUM 8.2 mg/dL (8.5-10.1); CREATININE 1.4 mg/dL (0.7-1.3); GFR 48.4; POTASSIUM 3.7 mmol/L (3.5-5.1)
[2021-06-25] MEDS: PIPERACILLIN/TAZOBACTAM 2.25 GM in IV NORMAL SALINE 50ML 50 ML IV SCH ×3 (05:11→17:38)
[2021-06-25] MEDS: METOPROLOL IV PUSH 5 MG/5 ML VIAL. IVP SCH ×3 (05:11→17:38)
[2021-06-25] MEDS: INSULIN LISPRO 300 UNITS/3 ML VIAL. SQ SCH ×3 (07:35→17:00)
[2021-06-25 08:00] VITALS: BP 101/66
[2021-06-25] MEDS ORDERED: DIGOXIN IV 500 MCG/2 ML AMPUL. IV ONE (09:15)
--- NOTE | 2021-06-25 09:22 | PDOC ---
PROGRESS NOTES Date of Service: DATE: 06/25/21 TIME: 09: Subjective Subjective Remains confused, no new complaints per nursing Objective Objective Vital Signs Date Time Temp Pulse Resp B/P (MAP) Pulse Ox O2 Delivery O2 Flow Rate FiO2 06/25/21 08:00 97.4 118 16 101/66 99 Room Air 97.4 06/25/21 01:04 2.0 Intake and Output 06/25/21 07:00 Intake Total 800 ml Output Total 1000 ml Balance -200 ml Intake Oral 0 ml IV Total 800 ml Output Urine Total 1000 ml # Bowel Movements 1 Physical Exam Abdomen: Normal bowel sounds, Soft, No tenderness, No hepatosplenomegaly, No masses Heart: Regular rate, Normal S1, Normal S2, No murmurs, Gallops Extremities: Other (BLE EDEMA 1+) General: Other (CONFUSED AND DROWSEY) HEENT: Atraumatic Lungs: Clear to auscultation, Normal air movement MUSCULOSKELETAL: Osteoarthritic changes both hands Neuro: Normal speech, Sensation intact Psych/Mental Status: Other (CONFUSED) Skin: Other (He has chronic venous stasis and thin skin) Diagnosis RENAL FAILURE: Acute, Other (DEHYDRATION AND HYPERNATREMIA) Assessment Assessment 1. NSTEMI: suspect demand mediated with multiorgan failure and AFIB RVR 2. AFIB RVR: paroxysmal by hx 3. LBBB: no prior EKG for comparison 4. Severe SUNNY with hypernatremia: nephrology following 5. Coagulopathy 6. Thrombocytopenia 7. Severe transaminitis: improving 8. Fall a week ago: unclear details 9. 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 Acute hypoxic respiratory failure 11. Sepsis: per PCP 12. Leg swelling: due to CHF, No DVT per doppler 13. Metabolic encephalopathy 14. 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 15. Cardiohepatorenal syndrome 16. Acute on chronic systolic CHF: no SOA currently 17. cachexia 18. DM2?: uncontrolled BG Recommendations 1. Continue IV lopressor. Digoxin 0.25 IV x1 today for RVR 2. Cardiac records at [facility] pending 3. Caution with QT prolonging agents: QTc 515 4. Poor long term care administrator prognosis. Supportive care 5. Future ischemic workup as an outpt pending goals of care. Will start and optimize HF regimen once extracardiac issues are better and BP is consistently adequate. Lasix PRN for now Plan Plan of Care Problems Medical Problems: (1) Acute metabolic encephalopathy Status: Acute (2) Acute urinary retention Status: Acute (3) Atrial fibrillation with rapid ventricular response Status: Acute (4) Cholestasis Status: Acute (5) Lactic acidemia Status: Acute (6) Metabolic acidosis Status: Acute (7) NSTEMI (non-ST elevated myocardial infarction) Status: Acute (8) Shock Status: Acute (9) Transaminasemia Status: Acute (10) Volume overload Status: Acute Comment Review of Relevant I have reviewed the following items scot (where applicable) has been applied. Labs Laboratory Tests Test 06/24/21 11:48 06/24/21 17:17 06/24/21 21:00 06/25/21 03:30 Glucose (Fingerstick) 210 mg/dL (70-99) 135 mg/dL (70-99) 170 mg/dL (70-99) Sodium Level 154 mmol/L (136-145) Potassium Level 3.7 mmol/L (3.5-5.1) Chloride Level 118 mmol/L (98-107) Carbon Dioxide Level 20 mmol/L (21-32) Anion Gap 16 (6-14) Blood Urea Nitrogen 59 mg/dL (8-26) Creatinine 1.4 mg/dL (0.7-1.3) Estimated GFR (Cockcroft-Gault) 48.4 Glucose Level 246 mg/dL (70-99) Calcium Level 8.2 mg/dL (8.5-10.1) Microbiology 06/21/21 Urine Culture - Final, Complete 06/21/21 Blood Culture - Preliminary, Resulted NO GROWTH AFTER 3 DAYS Medications Current Medications Digoxin (Lanoxin) 250 mcg 1X ONCE IV ; Start 06/25/21 at 09:15; Stop 06/25/21 at 09:16; Status DC Sodium Chloride 38.5 meq/Sterile Water 1,009.625 ml @ 30 mls/hr Q24H IV Last administered on 06/24/21at 14:16; Start 06/24/21 at 14:30 Vitals/I & O Vital Sign - Last 24 Hours 06/24/21 06/24/21 06/24/21 06/24/21 11:52 12:00 14:08 14:38 Temp 97.9 97.9 Pulse 84 112 Resp 16 16 16 B/P (MAP) 86/61 86/61 Pulse Ox 98 94 94 O2 Delivery Room Air Room Air Room Air 06/24/21 06/24/21 06/24/21 06/24/21 16:00 17:19 20:00 20:00 Temp 98.0 97.7 98.0 97.7 Pulse 120 108 136 Resp 22 B/P (MAP) 96/63 98/62 107/63 Pulse Ox 96 99 O2 Delivery Room Air Nasal Cannula Room Air O2 Flow Rate 2.0 06/24/21 06/25/21 06/25/21 06/25/21 23:25 00:00 00:34 01:04 Temp 97.0 97.0 Pulse 123 114 Resp 18 B/P (MAP) 96/66 104/57 Pulse Ox 100 100 100 O2 Delivery Room Air Nasal Cannula Nasal Cannula O2 Flow Rate 2.0 2.0 06/25/21 06/25/21 06/25/21 06/25/21 04:00 05:11 07:59 08:00 Temp 97.7 97.4 97.7 97.4 Pulse 132 117 118 Resp 16 B/P (MAP) 97/57 97/63 101/66 Pulse Ox 100 99 O2 Delivery Room Air Room Air Room Air Intake and Output 06/24/21 06/24/21 06/25/21 15:00 23:00 07:00 Intake Total 750 ml 50 ml 0 ml Output Total 300 ml 350 ml 350 ml Balance 450 ml -300 ml -350 ml VALERIE COHEN MD Jun 25, 2021 09:22
--- NOTE | 2021-06-25 11:32 | PDOC ---
PULMONARY PROGRESS NOTES DATE: 06/25/21 TIME: 11:31 Subjective Patient remains confused no overnight events Vitals Vital Signs Date Time Temp Pulse Resp B/P (MAP) Pulse Ox O2 Delivery O2 Flow Rate FiO2 06/25/21 09:43 122 101/66 06/25/21 08:00 97.4 16 99 Room Air 97.4 06/25/21 01:04 2.0 ROS: No Nausea, No Chest Pain, No Abdominal Pain, No Increase Cough General: Confused Lungs: Wheezing, Crackles Cardiovascular: S1, S2 Abdomen: Soft Neuro Exam: Alert Extremities: No Edema Skin: Warm Labs Laboratory Tests Test 06/23/21 18:13 06/23/21 21:11 06/24/21 04:00 06/24/21 11:48 Glucose (Fingerstick) 358 mg/dL (70-99) 268 mg/dL (70-99) 210 mg/dL (70-99) White Blood Count 9.9 x10^3/uL (4.0-11.0) Red Blood Count 4.25 x10^6/uL (4.30-5.70) Hemoglobin 13.9 g/dL (13.0-17.5) Hematocrit 41.2 % (39.0-53.0) Mean Corpuscular Volume 97 fL (79-100) Mean Corpuscular Hemoglobin 33 pg (25-35) Mean Corpuscular Hemoglobin Concent 34 g/dL (31-37) Red Cell Distribution Width 15.2 % (11.5-14.5) Platelet Count 43 x10^3/uL (140-400) Sodium Level 153 mmol/L (136-145) Potassium Level 3.1 mmol/L (3.5-5.1) Chloride Level 119 mmol/L (98-107) Carbon Dioxide Level 23 mmol/L (21-32) Anion Gap 11 (6-14) Blood Urea Nitrogen 65 mg/dL (8-26) Creatinine 1.5 mg/dL (0.7-1.3) Estimated GFR (Cockcroft-Gault) 44.7 BUN/Creatinine Ratio 43 (6-20) Glucose Level 301 mg/dL (70-99) Calcium Level 7.9 mg/dL (8.5-10.1) Total Bilirubin 2.3 mg/dL (0.2-1.0) Aspartate Amino Transf (AST/SGOT) 329 U/L (15-37) Alanine Aminotransferase (ALT/SGPT) 963 U/L (16-63) Alkaline Phosphatase 112 U/L (46-116) Total Protein 5.1 g/dL (6.4-8.2) Albumin 2.6 g/dL (3.4-5.0) Albumin/Globulin Ratio 1.0 (1.0-1.7) Test 06/24/21 17:17 06/24/21 21:00 06/25/21 03:30 Glucose (Fingerstick) 135 mg/dL (70-99) 170 mg/dL (70-99) Sodium Level 154 mmol/L (136-145) Potassium Level 3.7 mmol/L (3.5-5.1) Chloride Level 118 mmol/L (98-107) Carbon Dioxide Level 20 mmol/L (21-32) Anion Gap 16 (6-14) Blood Urea Nitrogen 59 mg/dL (8-26) Creatinine 1.4 mg/dL (0.7-1.3) Estimated GFR (Cockcroft-Gault) 48.4 Glucose Level 246 mg/dL (70-99) Calcium Level 8.2 mg/dL (8.5-10.1) Laboratory Tests Test 06/24/21 11:48 06/24/21 17:17 06/24/21 21:00 06/25/21 03:30 Glucose (Fingerstick) 210 mg/dL (70-99) 135 mg/dL (70-99) 170 mg/dL (70-99) Sodium Level 154 mmol/L (136-145) Potassium Level 3.7 mmol/L (3.5-5.1) Chloride Level 118 mmol/L (98-107) Carbon Dioxide Level 20 mmol/L (21-32) Anion Gap 16 (6-14) Blood Urea Nitrogen 59 mg/dL (8-26) Creatinine 1.4 mg/dL (0.7-1.3) Estimated GFR (Cockcroft-Gault) 48.4 Glucose Level 246 mg/dL (70-99) Calcium Level 8.2 mg/dL (8.5-10.1) Medications Active Scripts Medications Dose Route/Sig Max Daily Dose Days Date Category Magnesium Chloride 70 Mg Tablet.dr 70 Mg PO 06/21/21 Reported Hydrochlorothiazide Tablet (Hydrochlorothiazide) 25 Mg Tablet 25 Mg PO DAILY 06/21/21 Reported Lasix (Furosemide) 20 Mg Tablet 20 Mg PO BID 06/21/21 Reported Eliquis (Apixaban) 5 Mg Tablet 5 Mg PO 06/21/21 Reported Metformin Hcl 1,000 Mg Tablet 1,000 Mg PO BIDWMEALS 06/21/21 Reported Aspirin 81 Mg Tab.chew 1 Tab PO DAILY 06/21/21 Reported Cardizem Cd (Diltiazem Hcl) 180 Mg Cap.er.24h 1 Cap PO DAILY 06/21/21 Reported Cardizem Tablet (Diltiazem Hcl) 60 Mg Tablet 60 Mg PO QID 06/21/21 Reported Flomax (Tamsulosin Hcl) 0.4 Mg Cap.er.24h 1 Cap PO DAILY 06/21/21 Reported Simvastatin 80 Mg Tablet 1 Tab PO QHS 30 06/21/21 Reported Timolol Maleate 5 Ml Drops 1 Drop OD BID 06/21/21 Reported Xalatan (Latanoprost) 2.5 Ml Drops 1 Drop OU QHS 06/21/21 Reported Impression . IMPRESSION: 1. Acute hypoxemic respiratory failure, multifactorial. 2. Multiorgan failure/sepsis. 3. Cardiomyopathy. 4. Non-ST segment elevation myocardial infarction. 5. Thrombocytopenia. 6. Lactic acidosis. 7. Acute on chronic renal failure. 8. Liver failure. 9. Metabolic and toxic encephalopathy. Plan . Updated 06/25 Discussed with RN, up in the chair, exposed to sunlight Antibiotics per ID Cultures so far negative Follow cardiology input Monitor BUN and creatinine NORMA HARRIS MD Jun 25, 2021 11:32
[2021-06-25 12:00] VITALS: BP 86/61
--- NOTE | 2021-06-25 14:31 | PDOC ---
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 Prior history of the following; Hypertension, hyperlipidemia, chronic anticoagulation, possible CHF, AFib. History of Present Illness History of Present Illness 06/25/2021 Patient seen and examined in the ICU He was resting with no apparent distress then awoke and started yelling, I calmed him down he went back to sleep Discussed with RN Chart reviewed His labs are slowly improving 06/24/2021 Patient seen and examined in the ICU Discussed with RN Chart reviewed He remains pleasantly confused 06/23/2021 Patient seen and examined in ICU Discussed with RN Chart reviewed He is in mitts and pleasantly confused Potassium low at 2.9 we ordered 80 Sugars running a little high we ordered a sliding scale insulin Discussed with RN Discussed with case management Chart reviewed 06/22/2021 Patient seen and examined in the ICU He is resting with no apparent distress He is on IV Zosyn and IV Cardizem drip Heparin is hanging but we just turned it off this morning Discussed with RN Discussed with case management Chart reviewed He remains critically ill Vitals/I&O Vitals/I&O: Vital Signs Date Time Temp Pulse Resp B/P (MAP) Pulse Ox O2 Delivery O2 Flow Rate FiO2 06/25/21 12:00 97.8 102 22 86/61 98 Room Air 97.8 06/25/21 01:04 2.0 I & O 06/24/21 06/24/21 06/25/21 15:00 23:00 07:00 Intake Total 750 ml 50 ml 0 ml Output Total 300 ml 350 ml 350 ml Balance 450 ml -300 ml -350 ml Physical Exam Physical Exam: GENERAL: Chronically ill-appearing male, somewhat confused. Speech is garbled, wearing mittens on O2 by nasal cannula. HEENT: Normocephalic, atraumatic. Anicteric. Pupils equal, reactive. Oral mucosa moist, few teeth. NECK: Supple. LUNGS: Decreased breath sounds at the bases. No rhonchi. HEART: S1, S2, irregular, systolic murmur. ABDOMEN: Soft, mildly distended, mild discomfort on deep palpation. No rebound or guarding. EXTREMITIES: Bilateral lower extremity edema with warmth. Right third toe has hammertoe with small ulceration. DERMATOLOGIC: Warm, dry, no generalized rash. NEUROLOGIC: Confused, garbled speech. PSYCHIATRIC: Unable to assess, confused. MUSCULOSKELETAL: DJD. LABORATORY DATA: WBC 12.8-16.2, hemoglobin 12.5, hematocrit 37.5, platelets 46. Sodium 143, potassium 5.6, chloride 103, bicarbonate 13, BUN 106, creatinine 3.0, glucose 446. Lactate 4.8 from 10.2, total bilirubin 3.2, AST 2562, ALT 2035, alkaline phosphatase 161, albumin 4.3. UA, 5-10 wbc's, leukocyte esterase negative, acetone negative. Influenza screen negative. SARS-COVID negative. Hepatitis profile negative. DIAGNOSTIC: CT abdomen, chest and pelvis shows cardiomegaly, large amount of stool in the distal colon, correlate for constipation. Head CT as per above. Chest x-ray, no acute pulmonary process. MICRO: 1. Blood culture pending. 2. Urine culture pending. IMPRESSION: 1. Sepsis, likely cardiac with multiorgan failure. 2. Non-STEMI with an atrial fibrillation with rapid ventricular response. 3. Acute kidney injury. 4. Thrombocytopenia, coagulopathy, elevated liver functions, latter likely from sepsis. 5. History of nonischemic cardiomyopathy Takotsubo. 6. Acute hypoxic respiratory failure. 7. Leukocytosis and lactic acidosis. 8. Leg swelling with possible secondary cellulitis. 9. Encephalopathy, likely metabolic.CThead as above General: Other (CONFUSED AND DROWSEY) Heart: Regular rate, Normal S1, Normal S2, No murmurs, Gallops Lungs: Wheezing, Crackles Abdomen: Normal bowel sounds, Soft, No tenderness, No hepatosplenomegaly, No masses Extremities: Other (BLE EDEMA 1+) Skin: Other (He has chronic venous stasis and thin skin) Labs Labs: Laboratory Tests Test 06/24/21 17:17 06/24/21 21:00 06/25/21 03:30 06/25/21 11:37 Glucose (Fingerstick) 135 mg/dL (70-99) 170 mg/dL (70-99) 201 mg/dL (70-99) Sodium Level 154 mmol/L (136-145) Potassium Level 3.7 mmol/L (3.5-5.1) Chloride Level 118 mmol/L (98-107) Carbon Dioxide Level 20 mmol/L (21-32) Anion Gap 16 (6-14) Blood Urea Nitrogen 59 mg/dL (8-26) Creatinine 1.4 mg/dL (0.7-1.3) Estimated GFR (Cockcroft-Gault) 48.4 Glucose Level 246 mg/dL (70-99) Calcium Level 8.2 mg/dL (8.5-10.1) Assessment and Plan Assessmemt and Plan Problems Medical Problems: (1) Acute metabolic encephalopathy Status: Acute (2) Acute urinary retention Status: Acute (3) Atrial fibrillation with rapid ventricular response Status: Acute (4) Cholestasis Status: Acute (5) Lactic acidemia Status: Acute (6) Metabolic acidosis Status: Acute (7) NSTEMI (non-ST elevated myocardial infarction) Status: Acute (8) Shock Status: Acute (9) Transaminasemia Status: Acute (10) Volume overload Status: Acute Slowly resolving multiorgan failure Probable sepsis NSTEM (suspect demand ischemia) Possible sepsis with multiorgan failure Left bundle branch block Coagulopathy Thrombocytopenia Acute on chronic systolic diastolic heart failure Transaminase SUNNY with hypernatremia 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 Prior history of the following; Hypertension, hyperlipidemia, chronic anticoagulation, possible CHF, AFib. Plan Plan ICU monitoring Continue the IV Zosyn and IV Zyvox He is getting 1/4 normal saline per nephrology Mitts for patient safety Sliding-scale insulin Electrolyte replacement protocol We have multiple consults following including cardiology pulmonary nephrology infectious disease and GI Trend labs Home meds when possible DVT prophylaxis Full code Appreciate subspecialist input Prognosis long-term extremely guarded Per cardiology input please see the following recommendations and we certainly agree and appreciate their input; Assessment 1. NSTEMI: suspect demand mediated with multiorgan failure and AFIB RVR 2. AFIB RVR: paroxysmal by hx 3. LBBB: no prior EKG for comparison 4. Severe SUNNY with hypernatremia: nephrology following 5. Coagulopathy 6. Thrombocytopenia 7. Severe transaminitis: improving 8. Fall a week ago: unclear details 9. 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 Acute hypoxic respiratory failure 11. Sepsis: per PCP 12. Leg swelling: due to CHF, No DVT per doppler 13. Metabolic encephalopathy 14. 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 15. Cardiohepatorenal syndrome 16. Acute on chronic systolic CHF: no SOA currently 17. cachexia 18. DM2?: uncontrolled BG Recommendations 1. Continue IV lopressor. Digoxin 0.25 IV x1 today for RVR 2. Cardiac records at [facility] pending 3. Caution with QT prolonging agents: QTc 515 4. Poor skilled nursing prognosis. Supportive care 5. Future ischemic workup as an outpt pending goals of care. Will start and optimize HF regimen once extracardiac issues are better and BP is consistently adequate. Lasix PRN for now Comment Review of Relevant I have reviewed the following items scot (where applicable) has been applied. Medications: Current Medications Medications (Trade) Dose Ordered Sig/Susy Route PRN Reason Start Time Stop Time Status Last Admin Dose Admin Sodium Chloride 38.5 meq/Sterile Water 1,009.625 ml @ 30 mls/hr Q24H IV 06/24/21 14:30 06/24/21 14:16 Digoxin (Lanoxin) 250 mcg 1X ONCE IV 06/25/21 09:15 06/25/21 09:16 DC 06/25/21 09:43 Justifications for Admission Other Justification VANESSA HENAO III DO Jun 25, 2021 14:31
[2021-06-25] MEDS: SODIUM CHLORIDE 23.4% 38.5 MEQ in IV STERILE WATER 1,000 ML IV SCH (15:50)
[2021-06-25 16:00] VITALS: BP 124/70
--- NOTE | 2021-06-25 16:16 | PDOC ---
Infectious Disease Note Subjective: Subjective Pt is encephalopathic Vital Signs: Vital Signs Vital Signs Date Time Temp Pulse Resp B/P (MAP) Pulse Ox O2 Delivery O2 Flow Rate FiO2 06/25/21 16:00 97.7 116 16 124/70 95 Room Air 97.7 06/25/21 01:04 2.0 Physical Exam: PHYSICAL EXAM GENERAL: Chronically ill-appearing male, somewhat confused. Speech is garbled, wearing mittens on O2 by nasal cannula. HEENT: Normocephalic, atraumatic. Anicteric. Pupils equal, reactive. Oral mucosa moist, few teeth. NECK: Supple. LUNGS: Decreased breath sounds at the bases. No rhonchi. HEART: S1, S2, irregular, systolic murmur. ABDOMEN: Soft, mildly distended, mild discomfort on deep palpation. No rebound or guarding. EXTREMITIES: Bilateral lower extremity edema with warmth. Right third toe has hammertoe with small ulceration. DERMATOLOGIC: Warm, dry, no generalized rash. NEUROLOGIC: Confused, garbled speech. PSYCHIATRIC: Unable to assess, confused. MUSCULOSKELETAL: DJD. LABORATORY DATA: WBC 12.8-16.2, hemoglobin 12.5, hematocrit 37.5, platelets 46. Sodium 143, potassium 5.6, chloride 103, bicarbonate 13, BUN 106, creatinine 3.0, glucose 446. Lactate 4.8 from 10.2, total bilirubin 3.2, AST 2562, ALT 2035, alkaline phosphatase 161, albumin 4.3. UA, 5-10 wbc's, leukocyte esterase negative, acetone negative. Influenza screen negative. SARS-COVID negative. Hepatitis profile negative. DIAGNOSTIC: CT abdomen, chest and pelvis shows cardiomegaly, large amount of stool in the distal colon, correlate for constipation. Head CT as per above. Chest x-ray, no acute pulmonary process. MICRO: 1. Blood culture pending. 2. Urine culture pending. IMPRESSION: 1. Sepsis, likely cardiac with multiorgan failure. 2. Non-STEMI with an atrial fibrillation with rapid ventricular response. 3. Acute kidney injury. 4. Thrombocytopenia, coagulopathy, elevated liver functions, latter likely from sepsis. 5. History of nonischemic cardiomyopathy Takotsubo. 6. Acute hypoxic respiratory failure. 7. Leukocytosis and lactic acidosis. 8. Leg swelling with possible secondary cellulitis. 9. Encephalopathy, likely metabolic.CThead as above Medications: Inpatient Meds: Medications reviewed. Labs: Lab Laboratory Tests Test 06/24/21 17:17 06/24/21 21:00 06/25/21 03:30 06/25/21 11:37 Glucose (Fingerstick) 135 mg/dL (70-99) 170 mg/dL (70-99) 201 mg/dL (70-99) Sodium Level 154 mmol/L (136-145) Potassium Level 3.7 mmol/L (3.5-5.1) Chloride Level 118 mmol/L (98-107) Carbon Dioxide Level 20 mmol/L (21-32) Anion Gap 16 (6-14) Blood Urea Nitrogen 59 mg/dL (8-26) Creatinine 1.4 mg/dL (0.7-1.3) Estimated GFR (Cockcroft-Gault) 48.4 Glucose Level 246 mg/dL (70-99) Calcium Level 8.2 mg/dL (8.5-10.1) Objective: Assessment: Patient seen and examined ID consult dictated Thank you Impression Sepsis with multiorgan failure Leukocytosis could have reactive component Lower extremity edema with possible secondary superimposed cellulitis A. fib with RVR, non-STEMI SUNNY Abnormal LFTs Thrombocytopenia Plan: Plan of Care Continue Zosyn Status post 1 dose of vancomycin. Continue Zyvox for now. Elevated lower extremity Monitor labs and cultures Continue supportive care Prognosis poor Discussed with VIOLETTA RAYMOND MD Jun 25, 2021 16:16
[2021-06-25 20:00] VITALS: BP 100/66
[2021-06-26] VITALS: BP 91/73
[2021-06-26] MEDS: PIPERACILLIN/TAZOBACTAM 2.25 GM in IV NORMAL SALINE 50ML 50 ML IV SCH ×5 (00:02→23:42)
[2021-06-26] MEDS: METOPROLOL IV PUSH 5 MG/5 ML VIAL. IVP SCH ×4 (00:03→17:13)
[2021-06-26 04:00] VITALS: BP 85/60
[2021-06-26 05:35] LABS: HEMATOCRIT 48.8 % (39.0-53.0); HEMOGLOBIN 16.3 g/dL (13.0-17.5); RED BLOOD COUNT 4.98 x10^6/uL (4.30-5.70); RED CELL DISTRIBUTION WIDTH 15.7 % (11.5-14.5); WHITE BLOOD COUNT 11.7 x10^3/uL (4.0-11.0)
[2021-06-26 06:04] LABS: ALBUMIN 2.6 g/dL (3.4-5.0); ALBUMIN/GLOBULIN RATIO 0.9 (1.0-1.7); CALCIUM 8.2 mg/dL (8.5-10.1); CREATININE 1.6 mg/dL (0.7-1.3); GFR 41.5; POTASSIUM 3.5 mmol/L (3.5-5.1); TOTAL BILIRUBIN 3.8 mg/dL (0.2-1.0); TOTAL PROTEIN 5.4 g/dL (6.4-8.2)
[2021-06-26 08:00] VITALS: BP 99/90
[2021-06-26] MEDS: INSULIN LISPRO 300 UNITS/3 ML VIAL. SQ SCH ×3 (08:40→17:10)
--- NOTE | 2021-06-26 09:47 | PDOC ---
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 Supposed to have swallow eval today. Reviewed urology note - As creatinine is improving concern for hydronephrosis is low, reinforced by the fact that it was not seen on CT. Vital Signs: Vital Signs Date Time Temp Pulse Resp B/P (MAP) Pulse Ox O2 Delivery O2 Flow Rate FiO2 06/26/21 05:55 119 85/71 06/26/21 04:00 98.4 22 100 Room Air 98.4 06/25/21 19:50 2.0 Labs: Laboratory Tests Test 06/25/21 11:37 06/25/21 17:34 06/26/21 05:15 06/26/21 08:39 Glucose (Fingerstick) 201 mg/dL 145 mg/dL 242 mg/dL White Blood Count 11.7 x10^3/uL Red Blood Count 4.98 x10^6/uL Hemoglobin 16.3 g/dL Hematocrit 48.8 % Mean Corpuscular Volume 98 fL Mean Corpuscular Hemoglobin 33 pg Mean Corpuscular Hemoglobin Concent 33 g/dL Red Cell Distribution Width 15.7 % Platelet Count 42 x10^3/uL Sodium Level 154 mmol/L Potassium Level 3.5 mmol/L Chloride Level 118 mmol/L Carbon Dioxide Level 22 mmol/L Anion Gap 14 Blood Urea Nitrogen 59 mg/dL Creatinine 1.6 mg/dL Estimated GFR (Cockcroft-Gault) 41.5 BUN/Creatinine Ratio 37 Glucose Level 231 mg/dL Calcium Level 8.2 mg/dL Total Bilirubin 3.8 mg/dL Aspartate Amino Transf (AST/SGOT) 173 U/L Alanine Aminotransferase (ALT/SGPT) 738 U/L Alkaline Phosphatase 127 U/L Total Protein 5.4 g/dL Albumin 2.6 g/dL Albumin/Globulin Ratio 0.9 PE: GEN: appears chronically ill LUNGS: difficult exam w/ moaning/crying out HEART: tachycardic ABD: soft, non-tender NEURO/PSYCH: moaning, has mittens, confused A/P: Sepsis, encephalopathy/dementia NSTEMI, A Fib, SUNNY, hypernatremia Thrombocytopenia (some drift since admission), coagulopathy (better) Elevated LFTs - AST and ALT much better overall, bili and Alk Phos fluctuating - normal liver, GB on US Hydronephrosis - per urology as above -- Doubtful will be able to participate in swallow eval considering mental status. Would not be a good PEG candidate - plt low, plus risk pt would dislodge w/ confusion, etc. Observe from GI standpoint. Justicifation of Admission Dx: Justifications for Admission: Justification of Admission Dx: Yes Acute Renal Failure: 3-Fold Rise in Serum Crea EMMA BOLTON Jun 26, 2021 09:47
--- NOTE | 2021-06-26 10:15 | PDOC ---
Renal-Progress Notes Subjective Notes Notes NONE History of Present Illness Hx of present illness CONFUSED Vitals Vitals Vital Signs Date Time Temp Pulse Resp B/P (MAP) Pulse Ox O2 Delivery O2 Flow Rate FiO2 06/26/21 08:00 Room Air 06/26/21 05:55 119 85/71 06/26/21 04:00 98.4 22 100 98.4 06/25/21 19:50 2.0 Weight Weight [ ] I.O. Intake and Output Intake and Output 06/26/21 07:00 Intake Total 1070 ml Output Total 545 ml Balance 525 ml IV Total 1070 ml Output Urine Total 545 ml # Bowel Movements 1 Labs Labs Laboratory Tests Test 06/25/21 11:37 06/25/21 17:34 06/26/21 05:15 06/26/21 08:39 Glucose (Fingerstick) 201 mg/dL (70-99) 145 mg/dL (70-99) 242 mg/dL (70-99) White Blood Count 11.7 x10^3/uL (4.0-11.0) Red Blood Count 4.98 x10^6/uL (4.30-5.70) Hemoglobin 16.3 g/dL (13.0-17.5) Hematocrit 48.8 % (39.0-53.0) Mean Corpuscular Volume 98 fL (79-100) Mean Corpuscular Hemoglobin 33 pg (25-35) Mean Corpuscular Hemoglobin Concent 33 g/dL (31-37) Red Cell Distribution Width 15.7 % (11.5-14.5) Platelet Count 42 x10^3/uL (140-400) Sodium Level 154 mmol/L (136-145) Potassium Level 3.5 mmol/L (3.5-5.1) Chloride Level 118 mmol/L (98-107) Carbon Dioxide Level 22 mmol/L (21-32) Anion Gap 14 (6-14) Blood Urea Nitrogen 59 mg/dL (8-26) Creatinine 1.6 mg/dL (0.7-1.3) Estimated GFR (Cockcroft-Gault) 41.5 BUN/Creatinine Ratio 37 (6-20) Glucose Level 231 mg/dL (70-99) Calcium Level 8.2 mg/dL (8.5-10.1) Total Bilirubin 3.8 mg/dL (0.2-1.0) Aspartate Amino Transf (AST/SGOT) 173 U/L (15-37) Alanine Aminotransferase (ALT/SGPT) 738 U/L (16-63) Alkaline Phosphatase 127 U/L (46-116) Total Protein 5.4 g/dL (6.4-8.2) Albumin 2.6 g/dL (3.4-5.0) Albumin/Globulin Ratio 0.9 (1.0-1.7) Micro Micro Microbiology 06/21/21 Urine Culture - Final, Complete 06/21/21 Blood Culture - Preliminary, Resulted NO GROWTH AFTER 4 DAYS Review of Systems Constitutional: yes: other (CONFUSED) Physical Exam General Appearance: no apparent distress Skin: warm, dry Respiratory: decreased breath sounds Heart: S1S2 Abdomen: soft Genitourinary: bladder flat Extremities: pulses present Neurology: alert, confused (agitated) Musculoskeletal: Osteoarthritis Assessment Assessment IMP SUNNY-IMPROVED CR OF 1.6 FROM 3.0 HYPERNATREMIA NSTEMI WITH AFIB AND RVT SEPSIS LEUCOCYTOSIS ? LE CELLULITIS CM WITH EF OF 30% ENCEPHALOPATHY PLAN ANTIBIOTICS START PPN LABS IN AM LASIX WHEN MORE STABLE WILL FOLLOW LINDA CARROLL MD Jun 26, 2021 10:15
--- NOTE | 2021-06-26 10:19 | PDOC ---
PULMONARY PROGRESS NOTES DATE: 06/26/21 TIME: 10:19 Subjective Patient remains confused, pulling on tubes and wires, requires mittens to prevent self-harm Vitals Vital Signs Date Time Temp Pulse Resp B/P (MAP) Pulse Ox O2 Delivery O2 Flow Rate FiO2 06/26/21 08:00 Room Air 06/26/21 05:55 119 85/71 06/26/21 04:00 98.4 22 100 98.4 06/25/21 19:50 2.0 Comments Unable to review systems, secondary to encephalopathy General: Confused Lungs: Wheezing, Crackles Cardiovascular: S1, S2 Abdomen: Soft Neuro Exam: Alert Extremities: No Edema Skin: Warm Labs Laboratory Tests Test 06/24/21 11:48 06/24/21 17:17 06/24/21 21:00 06/25/21 03:30 Glucose (Fingerstick) 210 mg/dL (70-99) 135 mg/dL (70-99) 170 mg/dL (70-99) Sodium Level 154 mmol/L (136-145) Potassium Level 3.7 mmol/L (3.5-5.1) Chloride Level 118 mmol/L (98-107) Carbon Dioxide Level 20 mmol/L (21-32) Anion Gap 16 (6-14) Blood Urea Nitrogen 59 mg/dL (8-26) Creatinine 1.4 mg/dL (0.7-1.3) Estimated GFR (Cockcroft-Gault) 48.4 Glucose Level 246 mg/dL (70-99) Calcium Level 8.2 mg/dL (8.5-10.1) Test 06/25/21 11:37 06/25/21 17:34 06/26/21 05:15 06/26/21 08:39 Glucose (Fingerstick) 201 mg/dL (70-99) 145 mg/dL (70-99) 242 mg/dL (70-99) White Blood Count 11.7 x10^3/uL (4.0-11.0) Red Blood Count 4.98 x10^6/uL (4.30-5.70) Hemoglobin 16.3 g/dL (13.0-17.5) Hematocrit 48.8 % (39.0-53.0) Mean Corpuscular Volume 98 fL (79-100) Mean Corpuscular Hemoglobin 33 pg (25-35) Mean Corpuscular Hemoglobin Concent 33 g/dL (31-37) Red Cell Distribution Width 15.7 % (11.5-14.5) Platelet Count 42 x10^3/uL (140-400) Sodium Level 154 mmol/L (136-145) Potassium Level 3.5 mmol/L (3.5-5.1) Chloride Level 118 mmol/L (98-107) Carbon Dioxide Level 22 mmol/L (21-32) Anion Gap 14 (6-14) Blood Urea Nitrogen 59 mg/dL (8-26) Creatinine 1.6 mg/dL (0.7-1.3) Estimated GFR (Cockcroft-Gault) 41.5 BUN/Creatinine Ratio 37 (6-20) Glucose Level 231 mg/dL (70-99) Calcium Level 8.2 mg/dL (8.5-10.1) Total Bilirubin 3.8 mg/dL (0.2-1.0) Aspartate Amino Transf (AST/SGOT) 173 U/L (15-37) Alanine Aminotransferase (ALT/SGPT) 738 U/L (16-63) Alkaline Phosphatase 127 U/L (46-116) Total Protein 5.4 g/dL (6.4-8.2) Albumin 2.6 g/dL (3.4-5.0) Albumin/Globulin Ratio 0.9 (1.0-1.7) Laboratory Tests Test 06/25/21 11:37 06/25/21 17:34 06/26/21 05:15 06/26/21 08:39 Glucose (Fingerstick) 201 mg/dL (70-99) 145 mg/dL (70-99) 242 mg/dL (70-99) White Blood Count 11.7 x10^3/uL (4.0-11.0) Red Blood Count 4.98 x10^6/uL (4.30-5.70) Hemoglobin 16.3 g/dL (13.0-17.5) Hematocrit 48.8 % (39.0-53.0) Mean Corpuscular Volume 98 fL (79-100) Mean Corpuscular Hemoglobin 33 pg (25-35) Mean Corpuscular Hemoglobin Concent 33 g/dL (31-37) Red Cell Distribution Width 15.7 % (11.5-14.5) Platelet Count 42 x10^3/uL (140-400) Sodium Level 154 mmol/L (136-145) Potassium Level 3.5 mmol/L (3.5-5.1) Chloride Level 118 mmol/L (98-107) Carbon Dioxide Level 22 mmol/L (21-32) Anion Gap 14 (6-14) Blood Urea Nitrogen 59 mg/dL (8-26) Creatinine 1.6 mg/dL (0.7-1.3) Estimated GFR (Cockcroft-Gault) 41.5 BUN/Creatinine Ratio 37 (6-20) Glucose Level 231 mg/dL (70-99) Calcium Level 8.2 mg/dL (8.5-10.1) Total Bilirubin 3.8 mg/dL (0.2-1.0) Aspartate Amino Transf (AST/SGOT) 173 U/L (15-37) Alanine Aminotransferase (ALT/SGPT) 738 U/L (16-63) Alkaline Phosphatase 127 U/L (46-116) Total Protein 5.4 g/dL (6.4-8.2) Albumin 2.6 g/dL (3.4-5.0) Albumin/Globulin Ratio 0.9 (1.0-1.7) Medications Active Scripts Medications Dose Route/Sig Max Daily Dose Days Date Category Magnesium Chloride 70 Mg Tablet.dr 70 Mg PO 06/21/21 Reported Hydrochlorothiazide Tablet (Hydrochlorothiazide) 25 Mg Tablet 25 Mg PO DAILY 06/21/21 Reported Lasix (Furosemide) 20 Mg Tablet 20 Mg PO BID 06/21/21 Reported Eliquis (Apixaban) 5 Mg Tablet 5 Mg PO 06/21/21 Reported Metformin Hcl 1,000 Mg Tablet 1,000 Mg PO BIDWMEALS 06/21/21 Reported Aspirin 81 Mg Tab.chew 1 Tab PO DAILY 06/21/21 Reported Cardizem Cd (Diltiazem Hcl) 180 Mg Cap.er.24h 1 Cap PO DAILY 06/21/21 Reported Cardizem Tablet (Diltiazem Hcl) 60 Mg Tablet 60 Mg PO QID 06/21/21 Reported Flomax (Tamsulosin Hcl) 0.4 Mg Cap.er.24h 1 Cap PO DAILY 06/21/21 Reported Simvastatin 80 Mg Tablet 1 Tab PO QHS 30 06/21/21 Reported Timolol Maleate 5 Ml Drops 1 Drop OD BID 06/21/21 Reported Xalatan (Latanoprost) 2.5 Ml Drops 1 Drop OU QHS 06/21/21 Reported Impression . IMPRESSION: 1. Acute hypoxemic respiratory failure, multifactorial. 2. Multiorgan failure/sepsis. 3. Cardiomyopathy. 4. Non-ST segment elevation myocardial infarction. 5. Thrombocytopenia. 6. Lactic acidosis. 7. Acute on chronic renal failure. 8. Liver failure. 9. Metabolic and toxic encephalopathy. Plan . Updated 06/[address] Hoffman Antibiotics per ID Cultures so far negative Follow cardiology input Monitor BUN and creatinine NORMA HARRIS MD Jun 26, 2021 10:19
--- NOTE | 2021-06-26 11:32 | PDOC ---
YASMANY SOTO PROCESS ASSISTANT 06/26/21 1132: CARDIO Progress Notes Date and Time Date of Service 06/26/21 Time of Evaluation 1130 Subjective Subjective: Other (agitated) Vitals Vitals Vital Signs Date Time Temp Pulse Resp B/P (MAP) Pulse Ox O2 Delivery O2 Flow Rate FiO2 06/26/21 08:00 Room Air 06/26/21 05:55 119 85/71 06/26/21 04:00 98.4 22 100 98.4 06/25/21 19:50 2.0 Weight Weight [ ] Input and Output Intake and Output Intake and Output 06/26/21 07:00 Intake Total 1070 ml Output Total 545 ml Balance 525 ml IV Total 1070 ml Output Urine Total 545 ml # Bowel Movements 1 Laboratory Labs Laboratory Tests Test 06/25/21 11:37 06/25/21 17:34 06/26/21 05:15 06/26/21 08:39 Glucose (Fingerstick) 201 mg/dL (70-99) 145 mg/dL (70-99) 242 mg/dL (70-99) White Blood Count 11.7 x10^3/uL (4.0-11.0) Red Blood Count 4.98 x10^6/uL (4.30-5.70) Hemoglobin 16.3 g/dL (13.0-17.5) Hematocrit 48.8 % (39.0-53.0) Mean Corpuscular Volume 98 fL (79-100) Mean Corpuscular Hemoglobin 33 pg (25-35) Mean Corpuscular Hemoglobin Concent 33 g/dL (31-37) Red Cell Distribution Width 15.7 % (11.5-14.5) Platelet Count 42 x10^3/uL (140-400) Sodium Level 154 mmol/L (136-145) Potassium Level 3.5 mmol/L (3.5-5.1) Chloride Level 118 mmol/L (98-107) Carbon Dioxide Level 22 mmol/L (21-32) Anion Gap 14 (6-14) Blood Urea Nitrogen 59 mg/dL (8-26) Creatinine 1.6 mg/dL (0.7-1.3) Estimated GFR (Cockcroft-Gault) 41.5 BUN/Creatinine Ratio 37 (6-20) Glucose Level 231 mg/dL (70-99) Calcium Level 8.2 mg/dL (8.5-10.1) Total Bilirubin 3.8 mg/dL (0.2-1.0) Aspartate Amino Transf (AST/SGOT) 173 U/L (15-37) Alanine Aminotransferase (ALT/SGPT) 738 U/L (16-63) Alkaline Phosphatase 127 U/L (46-116) Total Protein 5.4 g/dL (6.4-8.2) Albumin 2.6 g/dL (3.4-5.0) Albumin/Globulin Ratio 0.9 (1.0-1.7) Microbiology Micro Microbiology 06/21/21 Urine Culture - Final, Complete 06/21/21 Blood Culture - Preliminary, Resulted NO GROWTH AFTER 4 DAYS Review of Systems Constitutional: yes: other (CONFUSED) Physical Exam HEENT: Neck Supple W Full Motion Chest: Symmetric LUNGS: Other (diminished bases) Heart: irregularly irregular (AFIB ) Abdomen: Soft N/T Extremities: Other (1+ bilateral LE pitting edema) Neurology: alert, confused (agitated) Assessment Assessment 1. NSTEMI: suspect demand mediated 2. AFIB RVR: paroxysmal by hx. presently AFIB, rate mildly elevated. Metoprolol held due to hypotension 3. LBBB: no prior EKG for comparison 4. Severe SUNNY with hypernatremia: improved 5. Thrombocytopenia, coagulopathy 6. Severe transaminitis: improving 7. Severe NICM with prior hx of Takotsubo: EF at 20-25% 8. Acute hypoxic respiratory failure 9. Sepsis: per PCP 10. Metabolic encephalopathy 11. 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 12. Cardiohepatorenal syndrome 13. Acute on chronic systolic CHF 14. DM2: uncontrolled BG; as per IM Recommendation IV Dig x1 now Continue metoprolol for rate control as BP allows Supportive care Family considering Hospice Justicifation of Admission Dx: Justifications for Admission: Justification of Admission Dx: Yes Acute Renal Failure: 3-Fold Rise in Serum MARQUEZ Mcrae MD 06/27/21 1255: CARDIO Progress Notes Plan Plan Late entry for 06/26/2021 Patient seen and examined. Agree with above nurse practitioner note. YASMANY SOTO APRN Jun 26, 2021 11:32 MARQUEZ LIM MD Jun 27, 2021 12:55
[2021-06-26] MEDS: AA 4.25 %/CALCIUM/LYTES/D5W 1,000 ML IV SCH ×2 (11:48→23:43)
[2021-06-26 12:00] VITALS: BP 106/61
--- NOTE | 2021-06-26 12:10 | PDOC ---
[facility] PROGRESS NOTE Date of Service DOS: DATE: 06/26/21 TIME: 12:08 Chief Complaint Chief Complaint Slowly resolving multiorgan failure Probable sepsis NSTEM (suspect demand ischemia) Possible sepsis with multiorgan failure Left bundle branch block Coagulopathy Thrombocytopenia Acute on chronic systolic diastolic heart failure Transaminase SUNNY with hypernatremia 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 Prior history of the following; Hypertension, hyperlipidemia, chronic anticoagulation, possible CHF, AFib. History of Present Illness History of Present Illness 06/26/2021: Patient seen and evaluated in ICU. Resting in bed, pleasantly demented. I discussion with director of social services Dr. Darby. Currently the plan is to proceed with hospice evaluation. Critical care time 30 minutes spent reviewing charts, reviewing labs, reviewing imaging, discussion with RN and Dr. Darby. 06/25/2021 Patient seen and examined in the ICU He was resting with no apparent distress then awoke and started yelling, I calmed him down he went back to sleep Discussed with RN Chart reviewed His labs are slowly improving 06/24/2021 Patient seen and examined in the ICU Discussed with RN Chart reviewed He remains pleasantly confused 06/23/2021 Patient seen and examined in ICU Discussed with RN Chart reviewed He is in mitts and pleasantly confused Potassium low at 2.9 we ordered 80 Sugars running a little high we ordered a sliding scale insulin Discussed with RN Discussed with case management Chart reviewed 06/22/2021 Patient seen and examined in the ICU He is resting with no apparent distress He is on IV Zosyn and IV Cardizem drip Heparin is hanging but we just turned it off this morning Discussed with RN Discussed with case management Chart reviewed He remains critically ill Vitals/I&O Vitals/I&O: Vital Signs Date Time Temp Pulse Resp B/P (MAP) Pulse Ox O2 Delivery O2 Flow Rate FiO2 06/26/21 08:00 Room Air 06/26/21 05:55 119 85/71 06/26/21 04:00 98.4 22 100 98.4 06/25/21 19:50 2.0 I & O 06/25/21 06/25/21 06/26/21 15:00 23:00 07:00 Intake Total 350 ml 720 ml Output Total 120 ml 250 ml 175 ml Balance 230 ml 470 ml -175 ml Physical Exam Physical Exam: GENERAL: Chronically ill-appearing male, somewhat confused. Speech is garbled, wearing mittens on O2 by nasal cannula. HEENT: Normocephalic, atraumatic. Anicteric. Pupils equal, reactive. Oral mucosa moist, few teeth. NECK: Supple. LUNGS: Decreased breath sounds at the bases. No rhonchi. HEART: S1, S2, irregular, systolic murmur. ABDOMEN: Soft, mildly distended, mild discomfort on deep palpation. No rebound or guarding. EXTREMITIES: Bilateral lower extremity edema with warmth. Right third toe has hammertoe with small ulceration. DERMATOLOGIC: Warm, dry, no generalized rash. NEUROLOGIC: Confused, garbled speech. PSYCHIATRIC: Unable to assess, confused. MUSCULOSKELETAL: DJD. LABORATORY DATA: WBC 12.8-16.2, hemoglobin 12.5, hematocrit 37.5, platelets 46. Sodium 143, potassium 5.6, chloride 103, bicarbonate 13, BUN 106, creatinine 3.0, glucose 446. Lactate 4.8 from 10.2, total bilirubin 3.2, AST 2562, ALT 2035, alkaline phosphatase 161, albumin 4.3. UA, 5-10 wbc's, leukocyte esterase negative, acetone negative. Influenza screen negative. SARS-COVID negative. Hepatitis profile negative. DIAGNOSTIC: CT abdomen, chest and pelvis shows cardiomegaly, large amount of stool in the distal colon, correlate for constipation. Head CT as per above. Chest x-ray, no acute pulmonary process. MICRO: 1. Blood culture pending. 2. Urine culture pending. IMPRESSION: 1. Sepsis, likely cardiac with multiorgan failure. 2. Non-STEMI with an atrial fibrillation with rapid ventricular response. 3. Acute kidney injury. 4. Thrombocytopenia, coagulopathy, elevated liver functions, latter likely from sepsis. 5. History of nonischemic cardiomyopathy Takotsubo. 6. Acute hypoxic respiratory failure. 7. Leukocytosis and lactic acidosis. 8. Leg swelling with possible secondary cellulitis. 9. Encephalopathy, likely metabolic.CThead as above General: Other (CONFUSED AND DROWSEY) Heart: Regular rate, Normal S1, Normal S2, No murmurs, Gallops Lungs: Wheezing, Crackles Abdomen: Normal bowel sounds, Soft, No tenderness, No hepatosplenomegaly, No masses Extremities: Other (BLE EDEMA 1+) Skin: Other (He has chronic venous stasis and thin skin) Labs Labs: Laboratory Tests Test 06/25/21 17:34 06/26/21 05:15 06/26/21 08:39 Glucose (Fingerstick) 145 mg/dL (70-99) 242 mg/dL (70-99) White Blood Count 11.7 x10^3/uL (4.0-11.0) Red Blood Count 4.98 x10^6/uL (4.30-5.70) Hemoglobin 16.3 g/dL (13.0-17.5) Hematocrit 48.8 % (39.0-53.0) Mean Corpuscular Volume 98 fL (79-100) Mean Corpuscular Hemoglobin 33 pg (25-35) Mean Corpuscular Hemoglobin Concent 33 g/dL (31-37) Red Cell Distribution Width 15.7 % (11.5-14.5) Platelet Count 42 x10^3/uL (140-400) Sodium Level 154 mmol/L (136-145) Potassium Level 3.5 mmol/L (3.5-5.1) Chloride Level 118 mmol/L (98-107) Carbon Dioxide Level 22 mmol/L (21-32) Anion Gap 14 (6-14) Blood Urea Nitrogen 59 mg/dL (8-26) Creatinine 1.6 mg/dL (0.7-1.3) Estimated GFR (Cockcroft-Gault) 41.5 BUN/Creatinine Ratio 37 (6-20) Glucose Level 231 mg/dL (70-99) Calcium Level 8.2 mg/dL (8.5-10.1) Total Bilirubin 3.8 mg/dL (0.2-1.0) Aspartate Amino Transf (AST/SGOT) 173 U/L (15-37) Alanine Aminotransferase (ALT/SGPT) 738 U/L (16-63) Alkaline Phosphatase 127 U/L (46-116) Total Protein 5.4 g/dL (6.4-8.2) Albumin 2.6 g/dL (3.4-5.0) Albumin/Globulin Ratio 0.9 (1.0-1.7) Assessment and Plan Assessmemt and Plan Problems Medical Problems: (1) Acute metabolic encephalopathy Status: Acute (2) Acute urinary retention Status: Acute (3) Atrial fibrillation with rapid ventricular response Status: Acute (4) Cholestasis Status: Acute (5) Lactic acidemia Status: Acute (6) Metabolic acidosis Status: Acute (7) NSTEMI (non-ST elevated myocardial infarction) Status: Acute (8) Shock Status: Acute (9) Transaminasemia Status: Acute (10) Volume overload Status: Acute Comment Review of Relevant I have reviewed the following items scot (where applicable) has been applied. Medications: Current Medications Medications (Trade) Dose Ordered Sig/Susy Route PRN Reason Start Time Stop Time Status Last Admin Dose Admin Amino Acids/ Electrolytes/ Dextrose 1,000 ml @ 80 mls/hr [id number] IV 06/26/21 11:00 06/26/21 11:48 Justifications for Admission Other Justification RAMA LEVY MD Jun 26, 2021 12:10
[2021-06-26] MEDS ORDERED: DIGOXIN IV 500 MCG/2 ML AMPUL. IV ONE (12:15)
[2021-06-26] MEDS: fentaNYL PF VIAL 100 MCG/2 ML VIAL IVP PRN ×2 (13:05→16:43)
--- NOTE | 2021-06-26 14:36 | PDOC ---
Infectious Disease Note Subjective Subjective Pt is awake, shouting and crying off and on ROS ROS no n/v/d/sob Vital Sign Vital Signs Vital Signs Date Time Temp Pulse Resp B/P (MAP) Pulse Ox O2 Delivery O2 Flow Rate FiO2 06/26/21 13:35 100 Room Air 06/26/21 13:05 2.0 06/26/21 12:36 119 106/61 06/26/21 12:00 98.8 22 98.8 Physical Exam PHYSICAL EXAM GENERAL: Chronically ill-appearing male, somewhat confused. Speech is garbled, wearing mittens on O2 by nasal cannula. HEENT: Normocephalic, atraumatic. Anicteric. Pupils equal, reactive. Oral mucosa moist, few teeth. NECK: Supple. LUNGS: Decreased breath sounds at the bases. No rhonchi. HEART: S1, S2, irregular, systolic murmur. ABDOMEN: Soft, mildly distended, mild discomfort on deep palpation. No rebound or guarding. EXTREMITIES: Bilateral lower extremity edema with warmth. Right third toe has hammertoe with small ulceration. DERMATOLOGIC: Warm, dry, no generalized rash. NEUROLOGIC: Confused, garbled speech. PSYCHIATRIC: Unable to assess, confused. MUSCULOSKELETAL: DJD. LABORATORY DATA: WBC 12.8-16.2, hemoglobin 12.5, hematocrit 37.5, platelets 46. Sodium 143, potassium 5.6, chloride 103, bicarbonate 13, BUN 106, creatinine 3.0, glucose 446. Lactate 4.8 from 10.2, total bilirubin 3.2, AST 2562, ALT 2035, alkaline phosphatase 161, albumin 4.3. UA, 5-10 wbc's, leukocyte esterase negative, acetone negative. Influenza screen negative. SARS-COVID negative. Hepatitis profile negative. DIAGNOSTIC: CT abdomen, chest and pelvis shows cardiomegaly, large amount of stool in the distal colon, correlate for constipation. Head CT as per above. Chest x-ray, no acute pulmonary process. MICRO: 1. Blood culture pending. 2. Urine culture pending. IMPRESSION: 1. Sepsis, likely cardiac with multiorgan failure. 2. Non-STEMI with an atrial fibrillation with rapid ventricular response. 3. Acute kidney injury. 4. Thrombocytopenia, coagulopathy, elevated liver functions, latter likely from sepsis. 5. History of nonischemic cardiomyopathy Takotsubo. 6. Acute hypoxic respiratory failure. 7. Leukocytosis and lactic acidosis. 8. Leg swelling with possible secondary cellulitis. 9. Encephalopathy, likely metabolic.CThead as above Labs Lab Laboratory Tests Test 06/25/21 17:34 06/26/21 05:15 06/26/21 08:39 06/26/21 12:22 Glucose (Fingerstick) 145 mg/dL (70-99) 242 mg/dL (70-99) 238 mg/dL (70-99) White Blood Count 11.7 x10^3/uL (4.0-11.0) Red Blood Count 4.98 x10^6/uL (4.30-5.70) Hemoglobin 16.3 g/dL (13.0-17.5) Hematocrit 48.8 % (39.0-53.0) Mean Corpuscular Volume 98 fL (79-100) Mean Corpuscular Hemoglobin 33 pg (25-35) Mean Corpuscular Hemoglobin Concent 33 g/dL (31-37) Red Cell Distribution Width 15.7 % (11.5-14.5) Platelet Count 42 x10^3/uL (140-400) Sodium Level 154 mmol/L (136-145) Potassium Level 3.5 mmol/L (3.5-5.1) Chloride Level 118 mmol/L (98-107) Carbon Dioxide Level 22 mmol/L (21-32) Anion Gap 14 (6-14) Blood Urea Nitrogen 59 mg/dL (8-26) Creatinine 1.6 mg/dL (0.7-1.3) Estimated GFR (Cockcroft-Gault) 41.5 BUN/Creatinine Ratio 37 (6-20) Glucose Level 231 mg/dL (70-99) Calcium Level 8.2 mg/dL (8.5-10.1) Total Bilirubin 3.8 mg/dL (0.2-1.0) Aspartate Amino Transf (AST/SGOT) 173 U/L (15-37) Alanine Aminotransferase (ALT/SGPT) 738 U/L (16-63) Alkaline Phosphatase 127 U/L (46-116) Total Protein 5.4 g/dL (6.4-8.2) Albumin 2.6 g/dL (3.4-5.0) Albumin/Globulin Ratio 0.9 (1.0-1.7) Micro Microbiology 4/6/22 Urine Culture - Final, Complete 06/21/21 Blood Culture - Preliminary, Resulted NO GROWTH AFTER 1 DAY Objective Assessment 1. Sepsis, likely cardiac with multiorgan failure. 2. Non-STEMI with an atrial fibrillation with rapid ventricular response. 3. Acute kidney injury. 4. Thrombocytopenia, coagulopathy, elevated liver functions, latter likely from sepsis. 5. History of nonischemic cardiomyopathy Takotsubo. 6. Acute hypoxic respiratory failure. 7. Leukocytosis and lactic acidosis. 8. Leg swelling with possible secondary cellulitis. 9. Encephalopathy, likely metabolic.CThead as above Plan Plan of Care Continue Zosyn Status post 1 dose of vancomycin. Continue Zyvox for now. Elevated lower extremity Monitor labs and cultures Continue supportive care Prognosis poor Discussed with LATHA REYES,LUIS ALBERTO Parry MD Jun 26, 2021 14:36
[2021-06-26 16:00] VITALS: BP 137/76
[2021-06-26 20:00] VITALS: BP 110/66
[2021-06-27] VITALS: BP 110/62
[2021-06-27] MEDS: METOPROLOL IV PUSH 5 MG/5 ML VIAL. IVP SCH ×5 (02:21→18:00)
[2021-06-27 04:00] VITALS: BP 120/81
[2021-06-27] MEDS: PIPERACILLIN/TAZOBACTAM 2.25 GM in IV NORMAL SALINE 50ML 50 ML IV SCH ×3 (06:26→18:49)
[2021-06-27 06:32] LABS: CALCIUM 8.1 mg/dL (8.5-10.1); CREATININE 1.5 mg/dL (0.7-1.3); GFR 44.7; POTASSIUM 3.5 mmol/L (3.5-5.1)
[2021-06-27 08:00] VITALS: BP 132/62
--- NOTE | 2021-06-27 09:51 | PDOC ---
PULMONARY PROGRESS NOTES DATE: 06/27/21 TIME: 09:49 Subjective Patient remains confused, pulling on tubes and wires, requires mittens to prevent self-harm Vitals Vital Signs Date Time Temp Pulse Resp B/P (MAP) Pulse Ox O2 Delivery O2 Flow Rate FiO2 06/27/21 06:26 99 120/81 06/27/21 04:00 98.1 12 99 Room Air 98.1 06/26/21 16:43 2.0 Comments Unable to review systems, secondary to encephalopathy General: Confused Lungs: Wheezing, Crackles Cardiovascular: S1, S2 Abdomen: Soft Extremities: No Edema Skin: Warm Labs Laboratory Tests Test 06/25/21 11:37 06/25/21 17:34 06/26/21 05:15 06/26/21 08:30 Glucose (Fingerstick) 201 mg/dL (70-99) 145 mg/dL (70-99) White Blood Count 11.7 x10^3/uL (4.0-11.0) Red Blood Count 4.98 x10^6/uL (4.30-5.70) Hemoglobin 16.3 g/dL (13.0-17.5) Hematocrit 48.8 % (39.0-53.0) Mean Corpuscular Volume 98 fL (79-100) Mean Corpuscular Hemoglobin 33 pg (25-35) Mean Corpuscular Hemoglobin Concent 33 g/dL (31-37) Red Cell Distribution Width 15.7 % (11.5-14.5) Platelet Count 42 x10^3/uL (140-400) Sodium Level 154 mmol/L (136-145) Potassium Level 3.5 mmol/L (3.5-5.1) Chloride Level 118 mmol/L (98-107) Carbon Dioxide Level 22 mmol/L (21-32) Anion Gap 14 (6-14) Blood Urea Nitrogen 59 mg/dL (8-26) Creatinine 1.6 mg/dL (0.7-1.3) Estimated GFR (Cockcroft-Gault) 41.5 BUN/Creatinine Ratio 37 (6-20) Glucose Level 231 mg/dL (70-99) Calcium Level 8.2 mg/dL (8.5-10.1) Total Bilirubin 3.8 mg/dL (0.2-1.0) Aspartate Amino Transf (AST/SGOT) 173 U/L (15-37) Alanine Aminotransferase (ALT/SGPT) 738 U/L (16-63) Alkaline Phosphatase 127 U/L (46-116) Total Protein 5.4 g/dL (6.4-8.2) Albumin 2.6 g/dL (3.4-5.0) Albumin/Globulin Ratio 0.9 (1.0-1.7) Coronavirus (COVID-19)(PCR) Not detected (NOT DETECTD) Test 06/26/21 08:39 06/26/21 12:22 06/26/21 17:08 06/27/21 04:10 Glucose (Fingerstick) 242 mg/dL (70-99) 238 mg/dL (70-99) 273 mg/dL (70-99) Sodium Level 153 mmol/L (136-145) Potassium Level 3.5 mmol/L (3.5-5.1) Chloride Level 117 mmol/L (98-107) Carbon Dioxide Level 22 mmol/L (21-32) Anion Gap 14 (6-14) Blood Urea Nitrogen 63 mg/dL (8-26) Creatinine 1.5 mg/dL (0.7-1.3) Estimated GFR (Cockcroft-Gault) 44.7 Glucose Level 356 mg/dL (70-99) Calcium Level 8.1 mg/dL (8.5-10.1) Laboratory Tests Test 06/26/21 12:22 06/26/21 17:08 06/27/21 04:10 Glucose (Fingerstick) 238 mg/dL (70-99) 273 mg/dL (70-99) Sodium Level 153 mmol/L (136-145) Potassium Level 3.5 mmol/L (3.5-5.1) Chloride Level 117 mmol/L (98-107) Carbon Dioxide Level 22 mmol/L (21-32) Anion Gap 14 (6-14) Blood Urea Nitrogen 63 mg/dL (8-26) Creatinine 1.5 mg/dL (0.7-1.3) Estimated GFR (Cockcroft-Gault) 44.7 Glucose Level 356 mg/dL (70-99) Calcium Level 8.1 mg/dL (8.5-10.1) Medications Active Scripts Medications Dose Route/Sig Max Daily Dose Days Date Category Magnesium Chloride 70 Mg Tablet.dr 70 Mg PO 06/21/21 Reported Hydrochlorothiazide Tablet (Hydrochlorothiazide) 25 Mg Tablet 25 Mg PO DAILY 06/21/21 Reported Lasix (Furosemide) 20 Mg Tablet 20 Mg PO BID 06/21/21 Reported Eliquis (Apixaban) 5 Mg Tablet 5 Mg PO 06/21/21 Reported Metformin Hcl 1,000 Mg Tablet 1,000 Mg PO BIDWMEALS 06/21/21 Reported Aspirin 81 Mg Tab.chew 1 Tab PO DAILY 06/21/21 Reported Cardizem Cd (Diltiazem Hcl) 180 Mg Cap.er.24h 1 Cap PO DAILY 06/21/21 Reported Cardizem Tablet (Diltiazem Hcl) 60 Mg Tablet 60 Mg PO QID 06/21/21 Reported Flomax (Tamsulosin Hcl) 0.4 Mg Cap.er.24h 1 Cap PO DAILY 06/21/21 Reported Simvastatin 80 Mg Tablet 1 Tab PO QHS 30 06/21/21 Reported Timolol Maleate 5 Ml Drops 1 Drop OD BID 06/21/21 Reported Xalatan (Latanoprost) 2.5 Ml Drops 1 Drop OU QHS 06/21/21 Reported Impression . IMPRESSION: 1. Acute hypoxemic respiratory failure, multifactorial. Resolved. Currently on room air. 2. Multiorgan failure/sepsis. 3. Cardiomyopathy. 4. Non-ST segment elevation myocardial infarction. 5. Thrombocytopenia. 6. Lactic acidosis. 7. Acute on chronic renal failure. 8. Liver failure. 9. Metabolic and toxic encephalopathy. Plan . Updated 06/27 Pulmonary status is stable. Antibiotics per ID Cultures so far negative Follow cardiology input Monitor BUN and creatinine Discussed with RN. Updated 06/[address] Hoffman Antibiotics per ID Cultures so far negative Follow cardiology input Monitor BUN and creatinine JOSE PERSAUD MD Jun 27, 2021 09:51
--- NOTE | 2021-06-27 10:15 | PDOC ---
Renal-Progress Notes Subjective Notes Notes CONFUSED History of Present Illness Hx of present illness NO ACUTE CHANGES Vitals Vitals Vital Signs Date Time Temp Pulse Resp B/P (MAP) Pulse Ox O2 Delivery O2 Flow Rate FiO2 06/27/21 06:26 99 120/81 06/27/21 04:00 98.1 12 99 Room Air 98.1 06/26/21 16:43 2.0 Weight Weight [ ] I.O. Intake and Output Intake and Output 06/27/21 07:00 Intake Total 1348 ml Output Total 1125 ml Balance 223 ml IV Total 1348 ml Output Urine Total 1125 ml # Bowel Movements 1 Labs Labs Laboratory Tests Test 06/26/21 12:22 06/26/21 17:08 06/27/21 04:10 Glucose (Fingerstick) 238 mg/dL (70-99) 273 mg/dL (70-99) Sodium Level 153 mmol/L (136-145) Potassium Level 3.5 mmol/L (3.5-5.1) Chloride Level 117 mmol/L (98-107) Carbon Dioxide Level 22 mmol/L (21-32) Anion Gap 14 (6-14) Blood Urea Nitrogen 63 mg/dL (8-26) Creatinine 1.5 mg/dL (0.7-1.3) Estimated GFR (Cockcroft-Gault) 44.7 Glucose Level 356 mg/dL (70-99) Calcium Level 8.1 mg/dL (8.5-10.1) Micro Micro Microbiology 06/21/21 Urine Culture - Final, Complete 06/21/21 Blood Culture - Final, Complete NO GROWTH AFTER 5 DAYS Review of Systems Constitutional: yes: other (CONFUSED) Physical Exam General Appearance: no apparent distress Skin: warm, dry Respiratory: decreased breath sounds Heart: S1S2 Abdomen: soft Genitourinary: bladder flat Extremities: pulses present Neurology: alert, confused (agitated) Musculoskeletal: Osteoarthritis Assessment Assessment IMP SUNNY-IMPROVED CR OF 1.5 FROM 3.0 HYPERNATREMIA-STABLE NSTEMI WITH AFIB AND RVT SEPSIS LEUCOCYTOSIS ? LE CELLULITIS CM WITH EF OF 30% ENCEPHALOPATHY PLAN ANTIBIOTICS CONT PPN LABS IN AM LASIX WHEN MORE STABLE [facility] WILL FOLLOW LINDA CARROLL MD Jun 27, 2021 10:15
[2021-06-27 12:00] VITALS: BP 111/73
--- NOTE | 2021-06-27 12:09 | PDOC ---
Date of Service: DATE: 06/27/21 TIME: 12:05 Objective: Objective: D/w nurse - Hospice eval planned. Vital Signs: Vital Signs Date Time Temp Pulse Resp B/P (MAP) Pulse Ox O2 Delivery O2 Flow Rate FiO2 06/27/21 08:00 99.0 94 13 132/62 (85) Room Air 99.0 06/27/21 04:00 99 06/26/21 16:43 2.0 Labs: Laboratory Tests Test 06/26/21 12:22 06/26/21 17:08 06/27/21 04:10 Glucose (Fingerstick) 238 mg/dL 273 mg/dL Sodium Level 153 mmol/L Potassium Level 3.5 mmol/L Chloride Level 117 mmol/L Carbon Dioxide Level 22 mmol/L Anion Gap 14 Blood Urea Nitrogen 63 mg/dL Creatinine 1.5 mg/dL Estimated GFR (Cockcroft-Gault) 44.7 Glucose Level 356 mg/dL Calcium Level 8.1 mg/dL BLOOD CULTURE Final NO GROWTH AFTER 5 DAYS Imaging: EARLY CHILDHOOD Bedside Swallow Eval Bedside swallow eval completed. See full rpt in interventions. IMPRESSIONS: Altered mental status, impaired alertness, weak swallow and high RR contribute to high risk of aspiration. Instances of ABSENT swallow observed. Limited trials provided d/t same. Guarded to poor prognosis for improvement in swallow function given current med status. RECOMMEDNATIONS: NPO meds and nutrition. Oral care w/oral care kit. Notified by RN that hospice consult is pending. Pt not requesting po; if comfort measures instituted and pt transitioned to hospice, could attempt to provide 1-2 ice chips at a time and con't oral care w/oral gel for comfort. JACK Yu. PE: GEN: chronically ill LUNGS: room air HEART: RR ABD: non-distended NEURO/PSYCH: occasionally moans, mittens A/P: Sepsis, encephalopathy/dementia, MOSF Elevated LFTs - better/fluctuating (not checked today) -- Hospice eval planned, await outcome. Not a PEG candidate. Justicifation of Admission Dx: Justifications for Admission: Justification of Admission Dx: Yes Acute Renal Failure: 3-Fold Rise in Serum Crea EMMA BOLTON Jun 27, 2021 12:09
--- NOTE | 2021-06-27 13:42 | PDOC ---
Infectious Disease Note Subjective: Subjective Pt is awake, shouting and crying off and on Vital Signs: Vital Signs Vital Signs Date Time Temp Pulse Resp B/P (MAP) Pulse Ox O2 Delivery O2 Flow Rate FiO2 06/27/21 08:00 99.0 94 13 132/62 (85) Room Air 99.0 06/27/21 04:00 99 06/26/21 16:43 2.0 Physical Exam: PHYSICAL EXAM GENERAL: Chronically ill-appearing male, somewhat confused. Speech is garbled, wearing mittens on O2 by nasal cannula. HEENT: Normocephalic, atraumatic. Anicteric. Pupils equal, reactive. Oral mucosa moist, few teeth. NECK: Supple. LUNGS: Decreased breath sounds at the bases. No rhonchi. HEART: S1, S2, irregular, systolic murmur. ABDOMEN: Soft, mildly distended, mild discomfort on deep palpation. No rebound or guarding. EXTREMITIES: Bilateral lower extremity edema with warmth. Right third toe has hammertoe with small ulceration. DERMATOLOGIC: Warm, dry, no generalized rash. NEUROLOGIC: Confused, garbled speech. PSYCHIATRIC: Unable to assess, confused. MUSCULOSKELETAL: DJD. LABORATORY DATA: WBC 12.8-16.2, hemoglobin 12.5, hematocrit 37.5, platelets 46. Sodium 143, potassium 5.6, chloride 103, bicarbonate 13, BUN 106, creatinine 3.0, glucose 446. Lactate 4.8 from 10.2, total bilirubin 3.2, AST 2562, ALT 2035, alkaline phosphatase 161, albumin 4.3. UA, 5-10 wbc's, leukocyte esterase negative, acetone negative. Influenza screen negative. SARS-COVID negative. Hepatitis profile negative. DIAGNOSTIC: CT abdomen, chest and pelvis shows cardiomegaly, large amount of stool in the distal colon, correlate for constipation. Head CT as per above. Chest x-ray, no acute pulmonary process. MICRO: 1. Blood culture pending. 2. Urine culture pending. IMPRESSION: 1. Sepsis, likely cardiac with multiorgan failure. 2. Non-STEMI with an atrial fibrillation with rapid ventricular response. 3. Acute kidney injury. 4. Thrombocytopenia, coagulopathy, elevated liver functions, latter likely from sepsis. 5. History of nonischemic cardiomyopathy Takotsubo. 6. Acute hypoxic respiratory failure. 7. Leukocytosis and lactic acidosis. 8. Leg swelling with possible secondary cellulitis. 9. Encephalopathy, likely metabolic.CThead as above Medications: Inpatient Meds: Medications reviewed. Labs: Lab Laboratory Tests Test 06/26/21 17:08 06/27/21 04:10 Glucose (Fingerstick) 273 mg/dL (70-99) Sodium Level 153 mmol/L (136-145) Potassium Level 3.5 mmol/L (3.5-5.1) Chloride Level 117 mmol/L (98-107) Carbon Dioxide Level 22 mmol/L (21-32) Anion Gap 14 (6-14) Blood Urea Nitrogen 63 mg/dL (8-26) Creatinine 1.5 mg/dL (0.7-1.3) Estimated GFR (Cockcroft-Gault) 44.7 Glucose Level 356 mg/dL (70-99) Calcium Level 8.1 mg/dL (8.5-10.1) Objective: Assessment: 1. Sepsis, likely cardiac with multiorgan failure. 2. Non-STEMI with an atrial fibrillation with rapid ventricular response. 3. Acute kidney injury.Hydronephrosis 4. Thrombocytopenia, coagulopathy, elevated liver functions, latter likely from sepsis. 5. History of nonischemic cardiomyopathy Takotsubo. 6. Acute hypoxic respiratory failure. 7. Leukocytosis and lactic acidosis. Leucocytosis could have reactive component 8. Leg swelling with possible secondary cellulitis. 9. Encephalopathy, likely metabolic.CThead as above Plan: Plan of Care Continue Zosyn Status post 1 dose of vancomycin. Continue Zyvox D6 Elevated lower extremity Monitor labs and cultures Continue supportive care Prognosis poor Son is deciding to transition to hospice Discussed with VIOLETTA RAYMOND MD Jun 27, 2021 13:42
[2021-06-27] MEDS: AA 4.25 %/CALCIUM/LYTES/D5W 1,000 ML IV SCH (14:39)
[2021-06-27] MEDS ORDERED: INSULIN GLARGINE SYRINGE. SQ ONE (14:45)
[2021-06-27] MEDS ORDERED: INSULIN LISPRO 300 UNITS/3 ML VIAL. SQ ONE (14:45)
[2021-06-27] MEDS: HALOPERIDOL LACTATE 5 MG/ML VIAL. IVP PRN (14:55)
[2021-06-27 16:00] VITALS: BP 103/64
--- NOTE | 2021-06-27 16:03 | PDOC ---
[facility] PROGRESS NOTE Date of Service DOS: DATE: 06/27/21 TIME: 15:55 Chief Complaint Chief Complaint Slowly resolving multiorgan failure Probable sepsis NSTEM (suspect demand ischemia) Possible sepsis with multiorgan failure Left bundle branch block Coagulopathy Thrombocytopenia Acute on chronic systolic diastolic heart failure Transaminase SUNNY with hypernatremia 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 Prior history of the following; Hypertension, hyperlipidemia, chronic anticoagulation, possible CHF, AFib. History of Present Illness History of Present Illness 06/27: Patient seen and evaluated in ICU. He still appears very confused. N.p.o. due to failed swallow eval. Blood sugar 424; suspect secondary to TPN; will adjust insulin. I discussion with the son by phone, he is still wanting hospice house to evaluate. Son states that he is unable to care for patient at home. Prior to admission tells me they were in the process of illegally evicted him from his home. Due to some concerns for aspiration pneumonia on admission given his failed swallow study, will repeat CXR. 30 minutes critical care time spent reviewing labs, reviewing imaging, reviewing charts, discussion with RN. 06/26/2021: Patient seen and evaluated in ICU. Resting in bed, pleasantly demented. I discussion with manager social media Dr. Darby. Currently the plan is to proceed with hospice evaluation. Critical care time 30 minutes spent reviewing charts, reviewing labs, reviewing imaging, discussion with RN and Dr. Darby. 06/25/2021 Patient seen and examined in the ICU He was resting with no apparent distress then awoke and started yelling, I calmed him down he went back to sleep Discussed with RN Chart reviewed His labs are slowly improving 06/24/2021 Patient seen and examined in the ICU Discussed with RN Chart reviewed He remains pleasantly confused 06/23/2021 Patient seen and examined in ICU Discussed with RN Chart reviewed He is in mitts and pleasantly confused Potassium low at 2.9 we ordered 80 Sugars running a little high we ordered a sliding scale insulin Discussed with RN Discussed with case management Chart reviewed 06/22/2021 Patient seen and examined in the ICU He is resting with no apparent distress He is on IV Zosyn and IV Cardizem drip Heparin is hanging but we just turned it off this morning Discussed with RN Discussed with case management Chart reviewed He remains critically ill Vitals/I&O Vitals/I&O: Vital Signs Date Time Temp Pulse Resp B/P (MAP) Pulse Ox O2 Delivery O2 Flow Rate FiO2 06/27/21 14:34 104 103/64 06/27/21 08:00 99.0 13 Room Air 99.0 06/27/21 04:00 99 06/26/21 16:43 2.0 I & O 06/26/21 06/26/21 06/27/21 15:00 23:00 07:00 Intake Total 300 ml 1048 ml Output Total 350 ml 300 ml 475 ml Balance -50 ml 748 ml -475 ml Physical Exam Physical Exam: GENERAL: Chronically ill-appearing male, somewhat confused. Speech is garbled, wearing mittens on O2 by nasal cannula. HEENT: Normocephalic, atraumatic. Anicteric. Pupils equal, reactive. Oral mucosa moist, few teeth. NECK: Supple. LUNGS: Decreased breath sounds at the bases. No rhonchi. HEART: S1, S2, irregular, systolic murmur. ABDOMEN: Soft, mildly distended, mild discomfort on deep palpation. No rebound or guarding. EXTREMITIES: Bilateral lower extremity edema with warmth. Right third toe has hammertoe with small ulceration. DERMATOLOGIC: Warm, dry, no generalized rash. NEUROLOGIC: Confused, garbled speech. PSYCHIATRIC: Unable to assess, confused. MUSCULOSKELETAL: DJD. LABORATORY DATA: WBC 12.8-16.2, hemoglobin 12.5, hematocrit 37.5, platelets 46. Sodium 143, potassium 5.6, chloride 103, bicarbonate 13, BUN 106, creatinine 3.0, glucose 446. Lactate 4.8 from 10.2, total bilirubin 3.2, AST 2562, ALT 2035, alkaline phosphatase 161, albumin 4.3. UA, 5-10 wbc's, leukocyte esterase negative, acetone negative. Influenza screen negative. SARS-COVID negative. Hepatitis profile negative. DIAGNOSTIC: CT abdomen, chest and pelvis shows cardiomegaly, large amount of stool in the distal colon, correlate for constipation. Head CT as per above. Chest x-ray, no acute pulmonary process. MICRO: 1. Blood culture pending. 2. Urine culture pending. IMPRESSION: 1. Sepsis, likely cardiac with multiorgan failure. 2. Non-STEMI with an atrial fibrillation with rapid ventricular response. 3. Acute kidney injury. 4. Thrombocytopenia, coagulopathy, elevated liver functions, latter likely from sepsis. 5. History of nonischemic cardiomyopathy Takotsubo. 6. Acute hypoxic respiratory failure. 7. Leukocytosis and lactic acidosis. 8. Leg swelling with possible secondary cellulitis. 9. Encephalopathy, likely metabolic.CThead as above General: Other (CONFUSED AND DROWSEY) Heart: Regular rate, Normal S1, Normal S2, No murmurs, Gallops Lungs: Wheezing, Crackles Abdomen: Normal bowel sounds, Soft, No tenderness, No hepatosplenomegaly, No masses Extremities: Other (BLE EDEMA 1+) Skin: Other (He has chronic venous stasis and thin skin) Labs Labs: Laboratory Tests Test 06/26/21 17:08 06/27/21 04:10 06/27/21 14:34 Glucose (Fingerstick) 273 mg/dL (70-99) 424 mg/dL (70-99) Sodium Level 153 mmol/L (136-145) Potassium Level 3.5 mmol/L (3.5-5.1) Chloride Level 117 mmol/L (98-107) Carbon Dioxide Level 22 mmol/L (21-32) Anion Gap 14 (6-14) Blood Urea Nitrogen 63 mg/dL (8-26) Creatinine 1.5 mg/dL (0.7-1.3) Estimated GFR (Cockcroft-Gault) 44.7 Glucose Level 356 mg/dL (70-99) Calcium Level 8.1 mg/dL (8.5-10.1) Assessment and Plan Assessmemt and Plan Problems Medical Problems: (1) Acute metabolic encephalopathy Status: Acute (2) Acute urinary retention Status: Acute (3) Atrial fibrillation with rapid ventricular response Status: Acute (4) Cholestasis Status: Acute (5) Lactic acidemia Status: Acute (6) Metabolic acidosis Status: Acute (7) NSTEMI (non-ST elevated myocardial infarction) Status: Acute (8) Shock Status: Acute (9) Transaminasemia Status: Acute (10) Volume overload Status: Acute Comment Review of Relevant I have reviewed the following items scot (where applicable) has been applied. Medications: Current Medications Medications (Trade) Dose Ordered Sig/Susy Route PRN Reason Start Time Stop Time Status Last Admin Dose Admin Insulin Human Lispro (HumaLOG) 20 units 1X ONCE SQ 06/27/21 14:45 06/27/21 14:51 DC 06/27/21 14:54 Insulin Glargine (Lantus Syringe) 10 unit 1X ONCE SQ 06/27/21 14:45 06/27/21 14:51 DC 06/27/21 15:06 Haloperidol Lactate (Haldol Inj) 10 mg PRN Q6HRS PRN IVP AGITATION 06/27/21 14:45 06/27/21 14:55 Justifications for Admission Other Justification RAMA LEVY MD Jun 27, 2021 16:03
--- NOTE | 2021-06-27 16:51 | RAD ---
XR CHEST 1V History: Concern for aspiration pneumonia. Comparison: 06/21/2021 Technique: Portable AP radiograph of the chest. Findings: The lungs are adequately inflated. There are bilateral basilar consolidations and tapering bilateral effusions. No pneumothorax. Enlarged cardiac silhouette is stable. Pulmonary vasculature is within no rmal limits. Degenerative changes of the spine and shoulders. Soft tissues are unremarkable. Impression: 1. Bilateral lower lobe predominant consolidations may represent infection or aspiration and likely superimposed bilateral pleural effusions. 2. Stable cardiomegaly. Electronically signed by: Shayne Page MD (06/27/2021 4:49 PM) [id number]
[2021-06-27] MEDS: INSULIN LISPRO 300 UNITS/3 ML VIAL. SQ SCH (18:52)
[2021-06-27 20:00] VITALS: BP 90/59
[2021-06-28] VITALS: BP 102/59
[2021-06-28] MEDS: AA 4.25 %/CALCIUM/LYTES/D5W 1,000 ML IV SCH ×2 (00:01→13:00)
[2021-06-28] MEDS: PIPERACILLIN/TAZOBACTAM 2.25 GM in IV NORMAL SALINE 50ML 50 ML IV SCH ×4 (00:01→18:00)
[2021-06-28] MEDS: INSULIN LISPRO 300 UNITS/3 ML VIAL. SQ SCH ×4 (00:04→18:00)
[2021-06-28] MEDS: HALOPERIDOL LACTATE 5 MG/ML VIAL. IVP PRN ×2 (00:07→08:33)
[2021-06-28] MEDS: METOPROLOL IV PUSH 5 MG/5 ML VIAL. IVP SCH ×4 (00:07→18:00)
[2021-06-28 04:00] VITALS: BP 96/54
[2021-06-28 05:02] LABS: CALCIUM 7.8 mg/dL (8.5-10.1); CREATININE 1.2 mg/dL (0.7-1.3); GFR 57.8; POTASSIUM 3.5 mmol/L (3.5-5.1)
[2021-06-28 08:00] VITALS: BP 99/57
[2021-06-28] MEDS ORDERED: INSULIN GLARGINE SYRINGE. SQ SCH (09:00)
--- NOTE | 2021-06-28 09:44 | PDOC ---
Date of Service: DATE: 06/28/21 TIME: 09:43 Objective: Objective: NPO on PPN. Vital Signs: Vital Signs Date Time Temp Pulse Resp B/P (MAP) Pulse Ox O2 Delivery O2 Flow Rate FiO2 06/28/21 08:00 Room Air 06/28/21 06:07 76 111/65 06/28/21 04:00 99.0 17 100 99.0 Labs: Laboratory Tests Test 06/27/21 14:34 06/27/21 18:48 06/27/21 23:52 06/28/21 04:15 Glucose (Fingerstick) 424 mg/dL 256 mg/dL 218 mg/dL Sodium Level 155 mmol/L Potassium Level 3.5 mmol/L Chloride Level 122 mmol/L Carbon Dioxide Level 25 mmol/L Anion Gap 8 Blood Urea Nitrogen 57 mg/dL Creatinine 1.2 mg/dL Estimated GFR (Cockcroft-Gault) 57.8 Glucose Level 203 mg/dL Calcium Level 7.8 mg/dL Test 06/28/21 06:00 Glucose (Fingerstick) 202 mg/dL PE: GEN: resting - not disturbed A/P: Sepsis, encephalopathy/dementia, MOSF, dysphagia Hypernatremia, elevated LFTs -- Awaiting Hospice discussion. Justicifation of Admission Dx: Justifications for Admission: Justification of Admission Dx: Yes Acute Renal Failure: 3-Fold Rise in Serum Crea EMMA BOLTON Jun 28, 2021 09:44
--- NOTE | 2021-06-28 10:17 | PDOC ---
Renal-Progress Notes Subjective Notes Notes CONFUSED History of Present Illness Hx of present illness NO ACUTE CHANGES Vitals Vitals Vital Signs Date Time Temp Pulse Resp B/P (MAP) Pulse Ox O2 Delivery O2 Flow Rate FiO2 06/28/21 08:00 Room Air 06/28/21 06:07 76 111/65 06/28/21 04:00 99.0 17 100 99.0 Weight Weight [ ] I.O. Intake and Output Intake and Output 06/28/21 07:00 Intake Total 0 ml Output Total 1195 ml Balance -1195 ml Intake Oral 0 ml Output Urine Total 1195 ml # Bowel Movements 1 Labs Labs Laboratory Tests Test 06/27/21 14:34 06/27/21 18:48 06/27/21 23:52 06/28/21 04:15 Glucose (Fingerstick) 424 mg/dL (70-99) 256 mg/dL (70-99) 218 mg/dL (70-99) Sodium Level 155 mmol/L (136-145) Potassium Level 3.5 mmol/L (3.5-5.1) Chloride Level 122 mmol/L (98-107) Carbon Dioxide Level 25 mmol/L (21-32) Anion Gap 8 (6-14) Blood Urea Nitrogen 57 mg/dL (8-26) Creatinine 1.2 mg/dL (0.7-1.3) Estimated GFR (Cockcroft-Gault) 57.8 Glucose Level 203 mg/dL (70-99) Calcium Level 7.8 mg/dL (8.5-10.1) Test 06/28/21 06:00 Glucose (Fingerstick) 202 mg/dL (70-99) Micro Micro Microbiology 06/21/21 Urine Culture - Final, Complete 06/21/21 Blood Culture - Final, Complete NO GROWTH AFTER 5 DAYS Review of Systems Constitutional: yes: other (CONFUSED) Physical Exam General Appearance: no apparent distress Skin: warm, dry Respiratory: decreased breath sounds Heart: S1S2 Abdomen: soft Genitourinary: bladder flat Extremities: pulses present Neurology: alert, confused (agitated) Musculoskeletal: Osteoarthritis Assessment Assessment IMP SUNNY-IMPROVED CR OF 1.2 FROM 3.0 HYPERNATREMIA-STABLE NSTEMI WITH AFIB AND RVT SEPSIS LEUCOCYTOSIS ? LE CELLULITIS CM WITH EF OF 30% ENCEPHALOPATHY PLAN ANTIBIOTICS CONT PPN LABS IN AM LASIX WHEN MORE STABLE HOSPICE DISCUSSION WILL FOLLOW LINDA CARROLL MD Jun 28, 2021 10:17
--- NOTE | 2021-06-28 11:19 | PDOC ---
PULMONARY PROGRESS NOTES DATE: 06/28/21 TIME: 11:18 Subjective Patient remains confused, No shortness of breath Vitals Vital Signs Date Time Temp Pulse Resp B/P (MAP) Pulse Ox O2 Delivery O2 Flow Rate FiO2 06/28/21 08:00 Room Air 06/28/21 06:07 76 111/65 06/28/21 04:00 99.0 17 100 99.0 Comments Unable to review systems, secondary to encephalopathy General: Confused Lungs: Clear Cardiovascular: S1, S2 Abdomen: Soft Extremities: No Edema Skin: Warm Labs Laboratory Tests Test 06/26/21 12:22 06/26/21 17:08 06/27/21 04:10 06/27/21 14:34 Glucose (Fingerstick) 238 mg/dL (70-99) 273 mg/dL (70-99) 424 mg/dL (70-99) Sodium Level 153 mmol/L (136-145) Potassium Level 3.5 mmol/L (3.5-5.1) Chloride Level 117 mmol/L (98-107) Carbon Dioxide Level 22 mmol/L (21-32) Anion Gap 14 (6-14) Blood Urea Nitrogen 63 mg/dL (8-26) Creatinine 1.5 mg/dL (0.7-1.3) Estimated GFR (Cockcroft-Gault) 44.7 Glucose Level 356 mg/dL (70-99) Calcium Level 8.1 mg/dL (8.5-10.1) Test 06/27/21 18:48 06/27/21 23:52 06/28/21 04:15 06/28/21 06:00 Glucose (Fingerstick) 256 mg/dL (70-99) 218 mg/dL (70-99) 202 mg/dL (70-99) Sodium Level 155 mmol/L (136-145) Potassium Level 3.5 mmol/L (3.5-5.1) Chloride Level 122 mmol/L (98-107) Carbon Dioxide Level 25 mmol/L (21-32) Anion Gap 8 (6-14) Blood Urea Nitrogen 57 mg/dL (8-26) Creatinine 1.2 mg/dL (0.7-1.3) Estimated GFR (Cockcroft-Gault) 57.8 Glucose Level 203 mg/dL (70-99) Calcium Level 7.8 mg/dL (8.5-10.1) Laboratory Tests Test 06/27/21 14:34 06/27/21 18:48 06/27/21 23:52 06/28/21 04:15 Glucose (Fingerstick) 424 mg/dL (70-99) 256 mg/dL (70-99) 218 mg/dL (70-99) Sodium Level 155 mmol/L (136-145) Potassium Level 3.5 mmol/L (3.5-5.1) Chloride Level 122 mmol/L (98-107) Carbon Dioxide Level 25 mmol/L (21-32) Anion Gap 8 (6-14) Blood Urea Nitrogen 57 mg/dL (8-26) Creatinine 1.2 mg/dL (0.7-1.3) Estimated GFR (Cockcroft-Gault) 57.8 Glucose Level 203 mg/dL (70-99) Calcium Level 7.8 mg/dL (8.5-10.1) Test 06/28/21 06:00 Glucose (Fingerstick) 202 mg/dL (70-99) Medications Active Scripts Medications Dose Route/Sig Max Daily Dose Days Date Category Magnesium Chloride 70 Mg Tablet.dr 70 Mg PO 06/21/21 Reported Hydrochlorothiazide Tablet (Hydrochlorothiazide) 25 Mg Tablet 25 Mg PO DAILY 06/21/21 Reported Lasix (Furosemide) 20 Mg Tablet 20 Mg PO BID 06/21/21 Reported Eliquis (Apixaban) 5 Mg Tablet 5 Mg PO 06/21/21 Reported Metformin Hcl 1,000 Mg Tablet 1,000 Mg PO BIDWMEALS 06/21/21 Reported Aspirin 81 Mg Tab.chew 1 Tab PO DAILY 06/21/21 Reported Cardizem Cd (Diltiazem Hcl) 180 Mg Cap.er.24h 1 Cap PO DAILY 06/21/21 Reported Cardizem Tablet (Diltiazem Hcl) 60 Mg Tablet 60 Mg PO QID 06/21/21 Reported Flomax (Tamsulosin Hcl) 0.4 Mg Cap.er.24h 1 Cap PO DAILY 06/21/21 Reported Simvastatin 80 Mg Tablet 1 Tab PO QHS 30 06/21/21 Reported Timolol Maleate 5 Ml Drops 1 Drop OD BID 06/21/21 Reported Xalatan (Latanoprost) 2.5 Ml Drops 1 Drop OU QHS 06/21/21 Reported Impression . IMPRESSION: 1. Acute hypoxemic respiratory failure, multifactorial. Resolved. Currently on room air. 2. Multiorgan failure/sepsis. 3. Cardiomyopathy. 4. Non-ST segment elevation myocardial infarction. 5. Thrombocytopenia. 6. Lactic acidosis. 7. Acute on chronic renal failure. 8. Liver failure. 9. Metabolic and toxic encephalopathy. Plan . Updated 06/28 Pulmonary status is stable. Antibiotics per ID Cultures so far negative Follow cardiology input Monitor BUN and creatinine Discussed with RN. Updated 06/27 Pulmonary status is stable. Antibiotics per ID Cultures so far negative Follow cardiology input Monitor BUN and creatinine Discussed with RN. Updated 06/[address] Hoffman Antibiotics per ID Cultures so far negative Follow cardiology input Monitor BUN and creatinine JOSE PERSAUD MD Jun 28, 2021 11:19
[2021-06-28 12:00] VITALS: BP 96/58
--- NOTE | 2021-06-28 12:00 | PDOC ---
[employer] PROGRESS NOTE Date of Service DOS: DATE: 06/28/21 TIME: 11:58 Chief Complaint Chief Complaint Slowly resolving multiorgan failure Probable sepsis NSTEM (suspect demand ischemia) Possible sepsis with multiorgan failure Left bundle branch block Coagulopathy Thrombocytopenia Acute on chronic systolic diastolic heart failure Transaminase SUNNY with hypernatremia 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 Prior history of the following; Hypertension, hyperlipidemia, chronic anticoagulation, possible CHF, AFib. History of Present Illness History of Present Illness 06/28: Patient seen and evaluated in ICU. Remains n.p.o. due to failed swallow evaluation. Blood sugar improved, 202 today. Patient is accepted to to [facility] house and move recontacted when a bed and location is available. Discussed with RN and social media strategist. 06/27: Patient seen and evaluated in ICU. He still appears very confused. N.p.o. due to failed swallow eval. Blood sugar 424; suspect secondary to TPN; will adjust insulin. I discussion with the son by phone, [facility]. Son states that he is unable to care for patient at home. Prior to admission tells me they were in the process of illegally evicted him from his home. Due to some concerns for aspiration pneumonia on admission given his failed swallow study, will repeat CXR. 30 minutes critical care time spent reviewing labs, reviewing imaging, reviewing charts, discussion with RN. 06/26/2021: Patient seen and evaluated in ICU. Resting in bed, pleasantly demented. I discussion with social media strategist Dr. Darby. Currently the plan is to proceed with hospice evaluation. Critical care time 30 minutes spent reviewing charts, reviewing labs, reviewing imaging, discussion with RN and Dr. Darby. 06/25/2021 Patient seen and examined in the ICU He was resting with no apparent distress then awoke and started yelling, I calmed him down he went back to sleep Discussed with RN Chart reviewed His labs are slowly improving 06/24/2021 Patient seen and examined in the ICU Discussed with RN Chart reviewed He remains pleasantly confused 06/23/2021 Patient seen and examined in ICU Discussed with RN Chart reviewed He is in mitts and pleasantly confused Potassium low at 2.9 we ordered 80 Sugars running a little high we ordered a sliding scale insulin Discussed with RN Discussed with case management Chart reviewed 06/22/2021 Patient seen and examined in the ICU He is resting with no apparent distress He is on IV Zosyn and IV Cardizem drip Heparin is hanging but we just turned it off this morning Discussed with RN Discussed with case management Chart reviewed He remains critically ill Vitals/I&O Vitals/I&O: Vital Signs Date Time Temp Pulse Resp B/P (MAP) Pulse Ox O2 Delivery O2 Flow Rate FiO2 06/28/21 08:00 Room Air 06/28/21 06:07 76 111/65 06/28/21 04:00 99.0 17 100 99.0 I & O 06/27/21 06/27/21 06/28/21 15:00 23:00 07:00 Intake Total 0 ml 0 ml Output Total 350 ml 600 ml 245 ml Balance -350 ml -600 ml -245 ml Physical Exam Physical Exam: GENERAL: Chronically ill-appearing male, somewhat confused. Speech is garbled, wearing mittens on O2 by nasal cannula. HEENT: Normocephalic, atraumatic. Anicteric. Pupils equal, reactive. Oral mucosa moist, few teeth. NECK: Supple. LUNGS: Decreased breath sounds at the bases. No rhonchi. HEART: S1, S2, irregular, systolic murmur. ABDOMEN: Soft, mildly distended, mild discomfort on deep palpation. No rebound or guarding. EXTREMITIES: Bilateral lower extremity edema with warmth. Right third toe has hammertoe with small ulceration. DERMATOLOGIC: Warm, dry, no generalized rash. NEUROLOGIC: Confused, garbled speech. PSYCHIATRIC: Unable to assess, confused. MUSCULOSKELETAL: DJD. LABORATORY DATA: WBC 12.8-16.2, hemoglobin 12.5, hematocrit 37.5, platelets 46. Sodium 143, potassium 5.6, chloride 103, bicarbonate 13, BUN 106, creatinine 3.0, glucose 446. Lactate 4.8 from 10.2, total bilirubin 3.2, AST 2562, ALT 2035, alkaline phosphatase 161, albumin 4.3. UA, 5-10 wbc's, leukocyte esterase negative, acetone negative. Influenza screen negative. SARS-COVID negative. Hepatitis profile negative. DIAGNOSTIC: CT abdomen, chest and pelvis shows cardiomegaly, large amount of stool in the distal colon, correlate for constipation. Head CT as per above. Chest x-ray, no acute pulmonary process. MICRO: 1. Blood culture pending. 2. Urine culture pending. IMPRESSION: 1. Sepsis, likely cardiac with multiorgan failure. 2. Non-STEMI with an atrial fibrillation with rapid ventricular response. 3. Acute kidney injury. 4. Thrombocytopenia, coagulopathy, elevated liver functions, latter likely from sepsis. 5. History of nonischemic cardiomyopathy Takotsubo. 6. Acute hypoxic respiratory failure. 7. Leukocytosis and lactic acidosis. 8. Leg swelling with possible secondary cellulitis. 9. Encephalopathy, likely metabolic.CThead as above General: Other (CONFUSED AND DROWSEY) Heart: Regular rate, Normal S1, Normal S2, No murmurs, Gallops Lungs: Clear Abdomen: Normal bowel sounds, Soft, No tenderness, No hepatosplenomegaly, No masses Extremities: Other (BLE EDEMA 1+) Skin: Other (He has chronic venous stasis and thin skin) Labs Labs: Laboratory Tests Test 06/27/21 14:34 06/27/21 18:48 06/27/21 23:52 06/28/21 04:15 Glucose (Fingerstick) 424 mg/dL (70-99) 256 mg/dL (70-99) 218 mg/dL (70-99) Sodium Level 155 mmol/L (136-145) Potassium Level 3.5 mmol/L (3.5-5.1) Chloride Level 122 mmol/L (98-107) Carbon Dioxide Level 25 mmol/L (21-32) Anion Gap 8 (6-14) Blood Urea Nitrogen 57 mg/dL (8-26) Creatinine 1.2 mg/dL (0.7-1.3) Estimated GFR (Cockcroft-Gault) 57.8 Glucose Level 203 mg/dL (70-99) Calcium Level 7.8 mg/dL (8.5-10.1) Test 06/28/21 06:00 Glucose (Fingerstick) 202 mg/dL (70-99) Assessment and Plan Assessmemt and Plan Problems Medical Problems: (1) Acute metabolic encephalopathy Status: Acute (2) Acute urinary retention Status: Acute (3) Atrial fibrillation with rapid ventricular response Status: Acute (4) Cholestasis Status: Acute (5) Lactic acidemia Status: Acute (6) Metabolic acidosis Status: Acute (7) NSTEMI (non-ST elevated myocardial infarction) Status: Acute (8) Shock Status: Acute (9) Transaminasemia Status: Acute (10) Volume overload Status: Acute Comment Review of Relevant I have reviewed the following items scot (where applicable) has been applied. Medications: Current Medications Medications (Trade) Dose Ordered Sig/Susy Route PRN Reason Start Time Stop Time Status Last Admin Dose Admin Insulin Human Lispro (HumaLOG) 0-7 UNITS Q6HRS SQ 06/27/21 18:00 06/28/21 06:06 Insulin Human Lispro (HumaLOG) 20 units 1X ONCE SQ 06/27/21 14:45 06/27/21 14:51 DC 06/27/21 14:54 Insulin Glargine (Lantus Syringe) 10 unit 1X ONCE SQ 06/27/21 14:45 06/27/21 14:51 DC 06/27/21 15:06 Insulin Glargine (Lantus Syringe) 20 unit BID SQ 06/28/21 09:00 06/28/21 09:36 Haloperidol Lactate (Haldol Inj) 10 mg PRN Q6HRS PRN IVP AGITATION 06/27/21 14:45 06/28/21 08:33 Justifications for Admission Other Justification RAMA LEVY MD Jun 28, 2021 12:00
--- NOTE | 2021-06-28 13:28 | PDOC ---
Infectious Disease Note Subjective: Subjective Pt remains confused, encephalopathic mumbles words no fevers Awaiting transition to hospice per discussion with RN Vital Signs: Vital Signs Vital Signs Date Time Temp Pulse Resp B/P (MAP) Pulse Ox O2 Delivery O2 Flow Rate FiO2 06/28/21 12:00 103 96/58 06/28/21 08:00 Room Air 06/28/21 04:00 99.0 17 100 99.0 Physical Exam: PHYSICAL EXAM GENERAL: Chronically ill-appearing male, somewhat confused. Speech is garbled, wearing mittens on O2 by nasal cannula. HEENT: Normocephalic, atraumatic. Anicteric. Pupils equal, reactive. Oral mucosa moist, few teeth. NECK: Supple. LUNGS: Decreased breath sounds at the bases. No rhonchi. HEART: S1, S2, irregular, systolic murmur. ABDOMEN: Soft, mildly distended, mild discomfort on deep palpation. No rebound or guarding. EXTREMITIES: Bilateral lower extremity edema with warmth. Right third toe has hammertoe with small ulceration. DERMATOLOGIC: Warm, dry, no generalized rash. NEUROLOGIC: Confused, garbled speech. PSYCHIATRIC: Unable to assess, confused. MUSCULOSKELETAL: DJD. LABORATORY DATA: WBC 12.8-16.2, hemoglobin 12.5, hematocrit 37.5, platelets 46. Sodium 143, potassium 5.6, chloride 103, bicarbonate 13, BUN 106, creatinine 3.0, glucose 446. Lactate 4.8 from 10.2, total bilirubin 3.2, AST 2562, ALT 2035, alkaline phosphatase 161, albumin 4.3. UA, 5-10 wbc's, leukocyte esterase negative, acetone negative. Influenza screen negative. SARS-COVID negative. Hepatitis profile negative. DIAGNOSTIC: CT abdomen, chest and pelvis shows cardiomegaly, large amount of stool in the distal colon, correlate for constipation. Head CT as per above. Chest x-ray, no acute pulmonary process. MICRO: 1. Blood culture pending. 2. Urine culture pending. IMPRESSION: 1. Sepsis, likely cardiac with multiorgan failure. 2. Non-STEMI with an atrial fibrillation with rapid ventricular response. 3. Acute kidney injury. 4. Thrombocytopenia, coagulopathy, elevated liver functions, latter likely from sepsis. 5. History of nonischemic cardiomyopathy Takotsubo. 6. Acute hypoxic respiratory failure. 7. Leukocytosis and lactic acidosis. 8. Leg swelling with possible secondary cellulitis. 9. Encephalopathy, likely metabolic.CThead as above Medications: Inpatient Meds: Medications reviewed. Labs: Lab Laboratory Tests Test 06/27/21 14:34 06/27/21 18:48 06/27/21 23:52 06/28/21 04:15 Glucose (Fingerstick) 424 mg/dL (70-99) 256 mg/dL (70-99) 218 mg/dL (70-99) Sodium Level 155 mmol/L (136-145) Potassium Level 3.5 mmol/L (3.5-5.1) Chloride Level 122 mmol/L (98-107) Carbon Dioxide Level 25 mmol/L (21-32) Anion Gap 8 (6-14) Blood Urea Nitrogen 57 mg/dL (8-26) Creatinine 1.2 mg/dL (0.7-1.3) Estimated GFR (Cockcroft-Gault) 57.8 Glucose Level 203 mg/dL (70-99) Calcium Level 7.8 mg/dL (8.5-10.1) Test 06/28/21 06:00 Glucose (Fingerstick) 202 mg/dL (70-99) Objective: Assessment: 1. Sepsis, likely cardiac with multiorgan failure. 2. Non-STEMI with an atrial fibrillation with rapid ventricular response. 3. Acute kidney injury.Hydronephrosis 4. Thrombocytopenia, coagulopathy, elevated liver functions, latter likely from sepsis. 5. History of nonischemic cardiomyopathy Takotsubo. 6. Acute hypoxic respiratory failure. 7. Leukocytosis and lactic acidosis. Leucocytosis could have reactive component 8. Leg swelling with possible secondary cellulitis. 9. Encephalopathy, likely metabolic.CThead as above Plan: Plan of Care Continue Zosyn Status post 1 dose of vancomycin. DC Zyvox Elevated lower extremity Monitor labs and cultures Continue supportive care Prognosis poor Patient is awaiting transition to hospice Discussed with VIOLETTA RAYMOND MD Jun 28, 2021 13:28
[2021-06-28 16:00] VITALS: BP 104/41
--- NOTE | 2021-06-28 17:03 | PDOC3 ---
Discharge Summary Visit Information Date of Admission: Jun 21, 2021 Date of Discharge: Jun 28, 2021 Final Diagnosis Problems Medical Problems: (1) Acute metabolic encephalopathy Status: Acute (2) Acute urinary retention Status: Acute (3) Atrial fibrillation with rapid ventricular response Status: Acute (4) Cholestasis Status: Acute (5) Lactic acidemia Status: Acute (6) Metabolic acidosis Status: Acute (7) NSTEMI (non-ST elevated myocardial infarction) Status: Acute (8) Shock Status: Acute (9) Transaminasemia Status: Acute (10) Volume overload Status: Acute Brief Hospital Course Allergies Allergies Coded Allergies Type Severity Reaction Last Updated Verified No Known Drug Allergies 06/21/21 No Vital Signs Vital Signs Date Time Temp Pulse Resp B/P (MAP) Pulse Ox O2 Delivery O2 Flow Rate FiO2 06/28/21 12:00 103 96/58 06/28/21 08:00 Room Air 06/28/21 04:00 99.0 17 100 99.0 Lab Results Laboratory Tests Test 06/26/21 17:08 06/27/21 04:10 06/27/21 14:34 06/27/21 18:48 Glucose (Fingerstick) 273 mg/dL (70-99) 424 mg/dL (70-99) 256 mg/dL (70-99) Sodium Level 153 mmol/L (136-145) Potassium Level 3.5 mmol/L (3.5-5.1) Chloride Level 117 mmol/L (98-107) Carbon Dioxide Level 22 mmol/L (21-32) Anion Gap 14 (6-14) Blood Urea Nitrogen 63 mg/dL (8-26) Creatinine 1.5 mg/dL (0.7-1.3) Estimated GFR (Cockcroft-Gault) 44.7 Glucose Level 356 mg/dL (70-99) Calcium Level 8.1 mg/dL (8.5-10.1) Test 06/27/21 23:52 06/28/21 04:15 06/28/21 06:00 Glucose (Fingerstick) 218 mg/dL (70-99) 202 mg/dL (70-99) Sodium Level 155 mmol/L (136-145) Potassium Level 3.5 mmol/L (3.5-5.1) Chloride Level 122 mmol/L (98-107) Carbon Dioxide Level 25 mmol/L (21-32) Anion Gap 8 (6-14) Blood Urea Nitrogen 57 mg/dL (8-26) Creatinine 1.2 mg/dL (0.7-1.3) Estimated GFR (Cockcroft-Gault) 57.8 Glucose Level 203 mg/dL (70-99) Calcium Level 7.8 mg/dL (8.5-10.1) Laboratory Tests Test 06/27/21 18:48 06/27/21 23:52 06/28/21 04:15 06/28/21 06:00 Glucose (Fingerstick) 256 mg/dL (70-99) 218 mg/dL (70-99) 202 mg/dL (70-99) Sodium Level 155 mmol/L (136-145) Potassium Level 3.5 mmol/L (3.5-5.1) Chloride Level 122 mmol/L (98-107) Carbon Dioxide Level 25 mmol/L (21-32) Anion Gap 8 (6-14) Blood Urea Nitrogen 57 mg/dL (8-26) Creatinine 1.2 mg/dL (0.7-1.3) Estimated GFR (Cockcroft-Gault) 57.8 Glucose Level 203 mg/dL (70-99) Calcium Level 7.8 mg/dL (8.5-10.1) Brief Hospital Course Mr. Cao is a 85 old man who presented with sepsis due to likely aspiration pneumonia. He is at baseline dementia that has been progressively worsening over a period of months. Consultation was placed to pulmonology for respiratory distress. Consultation was placed to ID, and patient was treated with broad- spectrum antibiotics. For his SUNNY/cardiorenal ATN, consultation placed to nephrology. Patient was maintained on IV fluids with some improvement in his renal function. Chest x-ray on admission and CT chest noted cardiomegaly. Consultation was placed to cardiology for his NSTEMI, and it was deemed to demand ischemia with no need for cardiac intervention. He had transaminitis on admission and consultation was placed to GI. This improved with some fluids and monitoring, but was deemed likely multifactorial. A bladder ultrasound was also obtained that showed hydronephrosis. Consultation placed to urology and consideration was made for ureteral stents if there was no improvement in hydronephrosis. Repeat chest x-ray on 06/27 showed likely aspiration superimposed on bilateral pleural effusions. Patient was monitored in the ICU throughout his hospital course. His confusion seemed to wax and wane. Due to a failed swallow study he remained on n.p.o. status with PPN. I discussed with son by phone who states he is unable to care for his father at home and prior to admission they were in the process of legally affecting him from his home. Son/DPOA was wanting to pursue hospice care. Patient was accepted to [facility] and discharged on 06/28/2021 to hospice once a bed opened up. Discharge Information Condition at Discharge: Stable Disposition/Orders: D/C to Another Facility ([facility]) Scheduled Aspirin (Aspirin) 81 Mg Tab.chew, 1 TAB PO DAILY, #30 Ref 3 (Reported) Entered as Reported by: JOEY WAY RN on 06/21/212105 Last Action: New Order on 06/21/212105 by JOEY WAY RN Diltiazem Hcl (Cardizem Tablet) 60 Mg Tablet, 60 MG PO QID for FOR HYPERTENSION, #30 Ref 0 (Reported) Entered as Reported by: JOEY WAY RN on 06/21/212105 Last Action: New Order on 06/21/212[address] RN Diltiazem Hcl (Cardizem Cd) 180 Mg Cap.er.24h, 1 CAP PO DAILY, #90 Ref 1 (Reported) Entered as Reported by: JOEY WAY RN on 06/21/212105 Last Action: New Order on 06/21/212[address] RN Furosemide (Lasix) 20 Mg Tablet, 20 MG PO BID, (Reported) Entered as Reported by: JOEY WAY RN on 06/21/212105 Last Action: New Order on 06/21/212[address] RN Hydrochlorothiazide (Hydrochlorothiazide Tablet ) 25 Mg Tablet, 25 MG PO DAILY for DIURETIC, Ref 0 (Reported) Entered as Reported by: JOEY WAY RN on 06/21/212105 Last Action: New Order on 06/21/212[address] RN Latanoprost (Xalatan) 2.5 Ml Drops, 1 DROP OU QHS for GLAUCOMA, (Reported) Entered as Reported by: JOEY WAY RN on 06/21/212105 Last Action: New Order on 06/21/212[address] RN Metformin Hcl (Metformin Hcl) 1,000 Mg Tablet, 1,000 MG PO BIDWMEALS, (Reported) Entered as Reported by: JOEY WAY RN on 06/21/212105 Last Action: New Order on 06/21/[address] RN Simvastatin (Simvastatin) 80 Mg Tablet, 1 TAB PO QHS for hld for 30 Days, #30 Ref 0 (Reported) Entered as Reported by: JOEY WAY RN on 06/21/212105 Last Action: New Order on 06/21/[address] RN Tamsulosin Hcl (Flomax) 0.4 Mg Cap.er.24h, 1 CAP PO DAILY, #30 Ref 11 (Reported) Entered as Reported by: JOEY WAY RN on 06/21/212105 Last Action: New Order on 06/21/212[address] RN Timolol Maleate (Timolol Maleate) 5 Ml Drops, 1 DROP OD BID, #10 Ref 0 (Reported ) Entered as Reported by: JOEY WAY RN on 06/21/212105 Last Action: New Order on 06/21/212[address] RN Miscellaneous Medications Apixaban (Eliquis) 5 Mg Tablet, 5 MG PO, (Reported) Entered as Reported by: JOEY WAY RN on 06/21/212105 Last Action: New Order on 06/21/[address] RN Magnesium Chloride (Magnesium Chloride) 70 Mg Tablet.dr, 70 MG PO, (Reported) Entered as Reported by: JOEY WAY RN on 06/21/212105 Last Action: New Order on 06/21/212[address] by [address] RN Justicifation of Admission Dx: Justifications for Admission: Justification of Admission Dx: Yes Acute Renal Failure: 3-Fold Rise in Serum Crea RAMA LEVY MD Jun 28, 2021 17:03
--- NOTE | 2021-06-28 19:58 | SNU/HH DC ---
DISCHARGE ORDERS DISCHARGE INFORMATION: DISCHARGE DATE: Jun 28, 2021 FINAL DIAGNOSIS Problems Medical Problems: (1) Acute metabolic encephalopathy Status: Acute (2) Acute urinary retention Status: Acute (3) Atrial fibrillation with rapid ventricular response Status: Acute (4) Cholestasis Status: Acute (5) Lactic acidemia Status: Acute (6) Metabolic acidosis Status: Acute (7) NSTEMI (non-ST elevated myocardial infarction) Status: Acute (8) Shock Status: Acute (9) Transaminasemia Status: Acute (10) Volume overload Status: Acute CONDITION ON DISCHARGE: Guarded CODE STATUS: Code Status: DNR/DNI HOSPICE: HOSPICE: Yes HOSPICE EVAL & TREAT: Yes POST DISCHARGE ORDERS: DIET AFTER DISCHARGE: NPO TREATMENT/EQUIPMENT ORDERS: Speech Language Pathology For: Evaluation/Treatment DISCHARGE MEDICATIONS: Home Meds Reported Medications Magnesium Chloride (Magnesium Chloride) 70 Mg Tablet.dr, 70 MG PO, TAB.SR 06/21/21 Hydrochlorothiazide (HYDROCHLOROTHIAZIDE TABLET ) 25 Mg Tablet, 25 MG PO DAILY for DIURETIC, TAB 0 Refills 06/21/21 Furosemide (LASIX) 20 Mg Tablet, 20 MG PO BID, TAB 06/21/21 Apixaban (ELIQUIS) 5 Mg Tablet, 5 MG PO, TAB 06/21/21 Metformin Hcl (METFORMIN HCL) 1,000 Mg Tablet, 1000 MG PO BIDWMEALS, TAB 06/21/21 Aspirin (ASPIRIN) 81 Mg Tab.chew, 1 TAB PO DAILY, #30 TAB 3 Refills 06/21/21 Diltiazem Hcl (CARDIZEM CD) 180 Mg Cap.er.24h, 1 CAP PO DAILY, #90 CAP 1 Refill 06/21/21 Diltiazem Hcl (CARDIZEM TABLET) 60 Mg Tablet, 60 MG PO QID for FOR HYPERTENSION, #30 TAB 0 Refills 06/21/21 Tamsulosin Hcl (FLOMAX) 0.4 Mg Cap.er.24h, 1 CAP PO DAILY, #30 CAP 11 Refills 06/21/21 Simvastatin (SIMVASTATIN) 80 Mg Tablet, 1 TAB PO QHS for hld for 30 Days, #30 TAB 0 Refills 06/21/21 Timolol Maleate (Timolol Maleate) 5 Ml Drops, 1 DROP OD BID, #10 ML 0 Refills 06/21/21 Latanoprost (XALATAN) 2.5 Ml Drops, 1 DROP OU QHS for GLAUCOMA, ML 06/21/21 RAMA LEVY MD Jun 28, 2021 19:57
== END 2021-06-28 20:20 | disposition hospice, inpatient (51) | DRG 871 ==
LOC: ER 19:00 → 1 WEST ICU 21:22
PROVIDERS: ADMIT Internal Medicine; ATTEND Internal Medicine
DX: A41.9 Sepsis, unspecified organism (principal); I21.4 Non-ST elevation (NSTEMI) myocardial infarction; J96.01 Acute respiratory failure with hypoxia; G92.9 Unspecified toxic encephalopathy; I50.43 Acute on chronic combined systolic (congestive) and diastolic (congestive) heart failure; J69.0 Pneumonitis due to inhalation of food and vomit; K76.7 Hepatorenal syndrome; K83.1 Obstruction of bile duct; N17.0 Acute kidney failure with tubular necrosis; D68.9 Coagulation defect, unspecified; E87.0 Hyperosmolality and hypernatremia; I13.0 Hypertensive heart and chronic kidney disease with heart failure and stage 1 through stage 4 chronic kidney disease, or unspecified chronic kidney disease; I42.8 Other cardiomyopathies; N13.30 Unspecified hydronephrosis; R57.9 Shock, unspecified; D69.6 Thrombocytopenia, unspecified; E11.22 Type 2 diabetes mellitus with diabetic chronic kidney disease; E11.65 Type 2 diabetes mellitus with hyperglycemia; E78.5 Hyperlipidemia, unspecified; E87.5 Hyperkalemia; E87.6 Hypokalemia; F03.90 Unspecified dementia, unspecified severity, without behavioral disturbance, psychotic disturbance, mood disturbance, and anxiety; H40.9 Unspecified glaucoma; I08.3 Combined rheumatic disorders of mitral, aortic and tricuspid valves; I25.10 Atherosclerotic heart disease of native coronary artery without angina pectoris; I25.2 Old myocardial infarction; I44.7 Left bundle-branch block, unspecified; I48.0 Paroxysmal atrial fibrillation; I71.4 Abdominal aortic aneurysm, without rupture; K59.00 Constipation, unspecified; K72.90 Hepatic failure, unspecified without coma; N18.9 Chronic kidney disease, unspecified; R13.10 Dysphagia, unspecified; R65.20 Severe sepsis without septic shock; Z20.822 Contact with and (suspected) exposure to COVID-19; Z51.5 Encounter for palliative care; Z79.01 Long term (current) use of anticoagulants; Z79.82 Long term (current) use of aspirin; Z79.84 Long term (current) use of oral hypoglycemic drugs; Z83.3 Family history of diabetes mellitus; Z91.14 Patient's other noncompliance with medication regimen; M19.90 Unspecified osteoarthritis, unspecified site
CPT/HCPCS: 36415; 36600; 70450; 71045; 71250; 74176; 76700; 80048; 80053; 80076; 81001; 82010; 82550; 82805; 82962; 83605; 83735; 83880; 84145; 84443; 84484; 85007; 85025; 85027; 85520; 85610; 85730; 86705; 86709; 86803; 87040; 87086; 87340; 87426; 87428; 93005; 93306; 93970; 96365; 96366; 96367; 96368; 96375; 96376; 99292; J0878; J1160; J1630; J1644; J1815; J1940; J2020; J2543; J3010; J3370; J3480; J3490; J7030; J7040; J7060; U0003; 92610-GN; 99291-25; C8929; G0378